=== PATIENT | male | born 1935 | race Caucasian/White ===

== ENCOUNTER → 2017-07-21 | Outpatient (CLI) | payer MEDICARE ==
[~2017-07-21] MED LIST: ACHD5005 PO; ENAL20TA PO; GLIP10TA13 PO; PRD20T PO
[2017-07-21 16:23] LABS: ALBUMIN 4.1 GM/DL (3.2-4.5); BILIRUBIN,TOTAL 0.8 MG/DL (0.1-1.0); CALCIUM 9.1 MG/DL (8.5-10.1); CREATININE SERUM 1.28 MG/DL (0.60-1.30); POTASSIUM 4.6 MMOL/L (3.6-5.0); TOTAL PROTEIN 7.4 GM/DL (6.4-8.2)
[2017-07-21 16:45] LABS: THYROID STIMULATING HORMONE 30.61 UIU/ML (0.35-4.94)
== END ==
LOC: LAB 15:44
PROVIDERS: ATTEND Internal Medicine Cardiovascular Disease
DX: E11.9 Type 2 diabetes mellitus without complications (principal); R94.31 Abnormal electrocardiogram [ECG] [EKG]; I10 Essential (primary) hypertension; R06.02 Shortness of breath
CPT/HCPCS: 36415; 80053; 80061; 84443

== ENCOUNTER 2017-12-16 11:33 | Inpatient (IN) | payer MEDICARE ==
[~2017-12-16] VITALS: Ht 170.2 cm; Wt 88.1 kg
[2017-12-16] VITALS (9 sets, daily range): BP systolic 92–119; BP diastolic 52–67
[2017-12-16] MEDS ORDERED: RT-ALBUTEROL/IPRATROPIUM 3 ML (DUONEB) VIAL ONE (12:05)
--- NOTE | 2017-12-16 12:05 | ED Cough/URI ---
General Stated Complaint: POSS PNEUMONIA Source: patient Exam Limitations: no limitations History of Present Illness Date Seen by Provider: Dec 16, 2017 Time Seen by Provider: 12:03 Initial Comments To ER by private vehicle from Dr Cruz office where he presented today with c/ o cough and general malaise of 1-3 weeks duration. Fevers noted. Timing/Duration: constant Severity/Quality: moderate Associated Symptoms: cough, fever/chills, shortness of breath, wheezing Allergies and Home Medications Allergies Coded Allergies: No Known Drug Allergies (Unverified , 08/09/12) Home Medications Enalapril Maleate 20 Mg Tablet, 20 MG PO DAILY, (Reported) Glipizide 10 Mg Tablet, 1 EACH PO DAILY, (Reported) Patient Home Medication List Home Medication List Reviewed: Yes Review of Systems Constitutional: see HPI, chills, fever, malaise, weakness EENTM: see HPI Respiratory: see HPI, cough, short of breath, wheezing Cardiovascular: no symptoms reported Genitourinary: no symptoms reported Musculoskeletal: no symptoms reported Skin: no symptoms reported Past Yhtmqii-Yabxff-Nxqpdm Hx Patient Social History Recent Foreign Travel: No Contact w/Someone Who Travel: No Seasonal Allergies Seasonal Allergies: No Past Medical History Orthopedic Hypertension Reproductive Disorders: No Diabetes, Non-Insulin dep Adverse Reaction/Blood Tranf: No Physical Exam Vital Signs Vital Signs - First Documented 12/16/17 12/16/17 11:43 12:13 Temp 99.4 Pulse 127 Resp 20 B/P (MAP) 129/80 (96) Pulse Ox 94 O2 Delivery Room Air Capillary Refill : General Appearance: WD/WN, no apparent distress Eyes: Bilateral Eye Normal Inspection, Bilateral Eye PERRL, Bilateral Eye EOMI HEENT: PERRL/EOMI, normal ENT inspection Neck: non-tender, full range of motion Respiratory: no respiratory distress, no accessory muscle use, other ( increased respiratory rate. Wheezing noted, crackles in bases. 94% room air, HR 120. ) Cardiovascular: tachycardia Gastrointestinal: normal bowel sounds, non tender, soft Neurologic/Psychiatric: alert, normal mood/affect, oriented x 3 Skin: normal color, warm/dry Focused Exam Lactate Level 12/16/17 12:00: Lactic Acid Level 2.75*H Lactic Acid Level Laboratory Tests Test 12/16/17 12:00 Lactic Acid Level 2.75 MMOL/L (0.50-2.00) *H Progress/Results/Core Measures Suspected Sepsis SIRS Temperature: Pulse: Respiratory Rate: Laboratory Tests 12/16/17 12:00: White Blood Count 12.1H Blood Pressure / Mean: 12/16/17 12:00: Lactic Acid Level 2.75*H Laboratory Tests 12/16/17 12:00: Creatinine 1.64H, Platelet Count 254, Total Bilirubin 0.6 Results/Orders Lab Results Laboratory Tests Test 12/16/17 12:00 Range/Units White Blood Count 12.1 H 4.3-11.0 10^3/uL Red Blood Count 4.19 L 4.35-5.85 10^6/uL Hemoglobin 13.1 L 13.3-17.7 G/DL Hematocrit 38 L 40-54 % Mean Corpuscular Volume 90 80-99 FL Mean Corpuscular Hemoglobin 31 25-34 PG Mean Corpuscular Hemoglobin Concent 35 32-36 G/DL Red Cell Distribution Width 13.6 10.0-14.5 % Platelet Count 254 130-400 10^3/uL Mean Platelet Volume 11.2 H 7.4-10.4 FL Neutrophils (%) (Auto) 81 H 42-75 % Lymphocytes (%) (Auto) 7 L 12-44 % Monocytes (%) (Auto) 12 0-12 % Eosinophils (%) (Auto) 0 0-10 % Basophils (%) (Auto) 0 0-10 % Neutrophils # (Auto) 9.7 H 1.8-7.8 X 10^3 Lymphocytes # (Auto) 0.9 L 1.0-4.0 X 10^3 Monocytes # (Auto) 1.4 H 0.0-1.0 X 10^3 Eosinophils # (Auto) 0.0 0.0-0.3 10^3/uL Basophils # (Auto) 0.0 0.0-0.1 10^3/uL Neutrophils % (Manual) 68 % Lymphocytes % (Manual) 12 % Monocytes % (Manual) 11 % Eosinophils % (Manual) 2 % Basophils % (Manual) 0 % Myelocytes % 1 % Band Neutrophils 6 % Blood Morphology Comment NORMAL Sodium Level 134 L 135-145 MMOL/L Potassium Level 4.5 3.6-5.0 MMOL/L Chloride Level 102 98-107 MMOL/L Carbon Dioxide Level 17 L 21-32 MMOL/L Anion Gap 15 H 5-14 MMOL/L Blood Urea Nitrogen 40 H 7-18 MG/DL Creatinine 1.64 H 0.60-1.30 MG/DL Estimat Glomerular Filtration Rate 40 BUN/Creatinine Ratio 24 Glucose Level 328 H 70-105 MG/DL Lactic Acid Level 2.75 *H 0.50-2.00 MMOL/L Calcium Level 9.5 8.5-10.1 MG/DL Total Bilirubin 0.6 0.1-1.0 MG/DL Aspartate Amino Transf (AST/SGOT) 31 5-34 U/L Alanine Aminotransferase (ALT/SGPT) 40 0-55 U/L Alkaline Phosphatase 84 40-136 U/L Total Protein 8.0 6.4-8.2 GM/DL Albumin 3.7 3.2-4.5 GM/DL My Orders Orders - RADHA LUGO APRN Saline Lock/Iv-Start (12/16/17 11:42) Cbc With Automated Diff (12/16/17 11:42) Comprehensive Metabolic Panel (12/16/17 11:42) Ua Culture If Indicated (12/16/17 11:42) Blood Culture (12/16/17 11:42) Lactic Acid Analyzer (12/16/17 11:42) Chest 1 View, Ap/Pa Only (12/16/17 12:02) Albuterol/Ipra Inhalation Soln (Duoneb I (12/16/17 12:15) Svn Sm Volume Nebulizer Rt-Rfs (12/16/17 12:07) Albuterol/Ipra Inhalation Soln (Duoneb I (12/16/17 12:05) Manual Differential (12/16/17 12:00) Ns Iv 1000 Ml (Sodium Chloride 0.9%) (12/16/17 12:30) Ceftriaxone Injection (Rocephin Injectio (12/16/17 12:45) Piperacillin Sodium/Tazobactam (Zosyn Vi (12/16/17 13:00) Medications Given in ED Current Medications Medications Dose Ordered Sig/Tripp Route Start Time Stop Time Status Last Admin Dose Admin Albuterol/ Ipratropium 3 ml ONCE ONCE INH 12/16/17 12:15 12/16/17 12:16 DC 12/16/17 12:17 3 ML Ceftriaxone Sodium 1000 mg/ Sodium Chloride 100 ml @ 200 mls/hr ONCE ONCE IV 12/16/17 12:45 12/16/17 13:14 DC 12/16/17 12:55 200 MLS/HR Piperacillin Sod/ Tazobactam Sod 4.5 gm/Sodium Chloride 100 ml @ 200 mls/hr ONCE ONCE IV 12/16/17 13:00 12/16/17 13:29 DC 12/16/17 14:01 200 MLS/HR Vital Signs/I&O 12/16/17 12/16/17 11:43 12:13 Temp 99.4 Pulse 127 Resp 20 B/P (MAP) 129/80 (96) Pulse Ox 94 O2 Delivery Room Air Room Air Capillary Refill : Departure Communication (Admissions) Time/Spoke to Admitting Phy: 14:[address] Clement, ICU, zosyn, pt alert and oriented and wants to be full code. SBP not less than 90, MAP not <65, Lactic acid not >4 so will not need 30ml/kg fluid bolus. Does meet severe sepsis criteria with the acute renal failure. Impression Primary Impression: Pneumonia Additional Impressions: Severe sepsis Acute renal insufficiency Disposition: ADMITTED INPATIENT Condition: Stable Admissions Decision to Admit Reason: Admit from ER (General) Decision to Admit/Date: Dec 16, 2017 Time/Decision to Admit Time: 12:09 Departure-Patient Inst. Referrals: MICHELLE FLYNN MD (PCP/Family) Primary Care Physician RADHA LUGO APRN Dec 16, 2017 12:05
[2017-12-16 12:10] LABS: BASOPHILS % (AUTO) 0 % (0-10); EOSINOPHILS % (AUTO) 0 % (0-10); HEMATOCRIT 38 % (40-54); HEMOGLOBIN 13.1 G/DL (13.3-17.7); LYMPHOCYTES # (AUTO) 0.9 X 10^3 (1.0-4.0); LYMPHOCYTES % (AUTO) 7 % (12-44); MEAN CORPUSCULAR HEMOGLOBIN 31 PG (25-34); MEAN CORPUSCULAR HGB CONC 35 G/DL (32-36); MEAN CORPUSCULAR VOLUME 90 FL (80-99); MEAN PLATELET VOLUME 11.2 FL (7.4-10.4); MONOCYTES # (AUTO) 1.4 X 10^3 (0.0-1.0); MONOCYTES % (AUTO) 12 % (0-12); NEUTROPHILS # (AUTO) 9.7 X 10^3 (1.8-7.8); NEUTROPHILS % (AUTO) 81 % (42-75); PLATELET COUNT 254 10^3/uL (130-400); RED BLOOD COUNT 4.19 10^6/uL (4.35-5.85); RED CELL DISTRIBUTION WIDTH 13.6 % (10.0-14.5); WHITE BLOOD COUNT 12.1 10^3/uL (4.3-11.0)
[2017-12-16] MEDS ORDERED: RT-ALBUTEROL/IPRATROPIUM 3 ML (DUONEB) VIAL INH ONE (12:15)
[2017-12-16 12:28] LABS: ALBUMIN 3.7 GM/DL (3.2-4.5); BILIRUBIN,TOTAL 0.6 MG/DL (0.1-1.0); CALCIUM 9.5 MG/DL (8.5-10.1); CREATININE SERUM 1.64 MG/DL (0.60-1.30); POTASSIUM 4.5 MMOL/L (3.6-5.0)
[2017-12-16] MEDS ORDERED: NS IV 1000 ML 1,000 ML IV SCH (12:30)
--- NOTE | 2017-12-16 12:40 | Diagnostic Imaging Report ---
INDICATION. Respiratory distress. Frontal chest obtained at 1221 hrs. P.m. Heart and mediastinal silhouette are normal in appearance. The right lung is clear. There is some minimal infiltrate versus atelectasis in the left base. There is no pneumothorax or pleural fluid. IMPRESSION: Minimal infiltrate versus atelectasis in left base. Otherwise negative chest. Followup is recommended as clinically warranted. Dictated by: Dictated on workstation # [id number]
[2017-12-16] MEDS ORDERED: cefTRIAXone INJECTION 1,000 MG in NS (IVPB) 100 ML IV ONE (12:45)
[2017-12-16 12:49] LABS: BAND NEUTROPHILS 6 %; BASOPHILS % (MANUAL) 0 %; EOSINOPHILS % (MANUAL) 2 %; LYMPHOCYTES % (MANUAL) 12 %; MONOCYTES % (MANUAL) 11 %; MYELOCYTES % 1 %; NEUTROPHILS % (MANUAL) 68 %; RBC MORPH NORMAL
[2017-12-16] MEDS ORDERED: PIPERACILLIN SODIUM/TAZOBACTAM 4.5 GM in NS (IVPB) 100 ML IV ONE (13:00)
--- NOTE | 2017-12-16 14:06 | History & Physical-Hospitalist ---
History of Present Illness HPI/Chief Complaint CC: Pneumonia HPI: This is an 82-year-old white male patient of Dr Torres with a past medical history of paroxysmal atrial fibrillation along with diabetes who presents to the ER with shortness of breath and cough. He reports that he saw Dr. Torres in his clinic earlier and considering fever and overall status that was worsening and wheezing he was sent to the ER for evaluation. He was found to have a pneumonia on chest x-ray and worsening renal insufficiency meeting criteria along with hypoxia for admission to the hospital. He had been coughing up yellow sputum and he had been sick for about a week with fever on and off. He had been taking Robitussin with codeine with varying results. He does not wear home oxygen at home and does not use nebulizer treatments. He denied any pain when I assessed him in the ER. Source: patient Exam Limitations: no limitations Date Seen 12/16/17 Time Seen by Provider: 13:30 Attending Physician Tracy Clement Floyd R MD Referring Physician Date of Admission Dec 16, 2017 at 13:00 Home Medications & Allergies Home Medications Reviewed patient Home Medication Reconciliation performed by pharmacy medication reconciliations radiation protection technician and/or nursing. Patients Allergies have been reviewed. Allergies Allergies Coded Allergies No Known Drug Allergies ([id number]/3/12) Past Yoophuo-Jnwajp-Xsucnz Hx Past Med/Social Hx: Reviewed Nursing Past Med/Soc Hx, Reviewed and Corrections made Patient Social History Marrital Status: single Employed/Student: retired Alcohol Use: Denies Use Recreational Drug Use: No Smoking Status: Never a Smoker 2nd Hand Smoke Exposure: No Recent Foreign Travel: No Contact w/other who traveled: No Recent Infectious Disease Expo: No Seasonal Allergies Seasonal Allergies: No Past Medical History Surgeries: Orthopedic Cardiac: Atrial Fibrillation, Hypertension Reproductive: No Endocrine: Diabetes, Non-Insulin dep Adverse Reaction to Blood [place]: No Family History Reviewed and Corrections made Diabetes Review of Systems Constitutional: see HPI, chills, dizziness, fever, malaise, weakness EENTM: no symptoms reported Respiratory: cough, dyspnea on exertion, short of breath, wheezing Cardiovascular: no symptoms reported Gastrointestinal: loss of appetite, nausea Genitourinary: decreased output Musculoskeletal: back pain Skin: no symptoms reported Psychiatric/Neurological: No Symptoms Reported All Other Systems Reviewed Negative Unless Noted: Yes Physical Exam Physical Exam Vital Signs Vital Signs - First Documented 12/16/17 12/16/17 12/16/17 11:43 12:13 23:44 Temp 99.4 Pulse 127 Resp 20 B/P (MAP) 129/80 (96) Pulse Ox 94 O2 Delivery Room Air O2 Flow Rate 2.00 Capillary Refill : Greater Than 3 Seconds General Appearance: No Apparent Distress, WD/WN, Chronically ill Eyes: Bilateral Eye Normal Inspection, Bilateral Eye PERRL HEENT: PERRL/EOMI, Normal ENT Inspection, Pharynx Normal Neck: Full Range of Motion, Normal Inspection, Non Tender, Supple, Carotid Bruit Respiratory: Chest Non Tender, No Accessory Muscle Use, No Respiratory Distress , Crackles, Decreased Breath Sounds, Wheezing Cardiovascular: Regular Rate, Rhythm, No Edema, No Gallop, No JVD, No Murmur, Normal Peripheral Pulses Gastrointestinal: Normal Bowel Sounds, No Organomegaly, No Pulsatile Mass, Non Tender, Soft Back: Normal Inspection, No CVA Tenderness, No Vertebral Tenderness Extremity: Normal Capillary Refill, Normal Inspection, Normal Range of Motion, Non Tender, No Calf Tenderness, No Pedal Edema Neurologic/Psychiatric: Alert, Oriented x3, No Motor/Sensory Deficits, Normal Mood/Affect Skin: Normal Color, Warm/Dry Lymphatic: No Adenopathy Results Results/Procedures Labs Laboratory Tests 12/16/17 12:00 12/17/17 03:40 Patient resulted labs reviewed. Assessment/Plan Admission Diagnosis Pneumonia Wheezing Diabetes mellitus Acute renal failure Hypertension Atrial fibrillation paroxysmal type cardiology consultation appreciated Chronic debility Plan: Reconciled all home meds IV antibiotics Nebulizer treatments Oxygen supplementation Cardiology consultation is appreciated Admission Status: Inpatient Order (span 2 midnights) Reason for Inpatient Admission: Severe sepsis due to pneumonia and ARF Diagnosis/Problems Diagnosis/Problems (1) Severe sepsis Status: Acute (2) Pneumonia Status: Acute Qualifiers: Pneumonia type: due to unspecified organism Laterality: bilateral Lung location: lower lobe of lung Qualified Codes: J18.1 - Lobar pneumonia, unspecified organism (3) Wheezing Status: Acute (4) Diabetes mellitus Status: Chronic Qualifiers: Diabetes mellitus type: type 2 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
[2017-12-16] MEDS ORDERED: LEVO100T7 PO (14:50)
[2017-12-16] MEDS ORDERED: LOSA50TA36 PO (14:50)
[2017-12-16] MEDS ORDERED: PRAV20TA3 PO (14:50)
[2017-12-16] MEDS ORDERED: METO-387 PO (14:50)
[2017-12-16] MEDS ORDERED: GLIP10TA13 PO (14:50)
[2017-12-16] MEDS ORDERED: GUAI120S PO (14:55)
[2017-12-16] MEDS ORDERED: DEXT237L PO (14:55)
[2017-12-16] MEDS ORDERED: ASPI-983 PO (14:55)
[2017-12-16] MEDS ORDERED: ASCO10006 PO (14:55)
[2017-12-16] MEDS ORDERED: FA/M1TAB29 PO (14:55)
[2017-12-16] MEDS ORDERED: ASCO100099 PO (14:56)
[2017-12-16] MEDS ORDERED: NS IV 1000 ML 1,000 ML ONE (15:23)
[2017-12-16] MEDS ORDERED: RT-ALBUTEROL/IPRATROPIUM 3 ML (DUONEB) VIAL INH PRN (15:30)
[2017-12-16] MEDS ORDERED: CATHETER FLUSH 10 ML SYR IV PRN (15:30)
[2017-12-16] MEDS ORDERED: PIPERACILLIN SODIUM/TAZOBACTAM 4.5 GM in NS (IVPB) 100 ML IV NR (15:30)
[2017-12-16] MEDS ORDERED: ENOXAPARIN 40 MG/0.4 ML (LOVENOX) SYR SC SCH (15:30)
[2017-12-16] MEDS: NS IV 1000 ML 1,000 ML IV SCH ×2 (15:36→23:43)
[2017-12-16] MEDS: PANTOPRAZOLE 40 MG/10 ML (PROTONIX) VIAL IV SCH (15:47)
[2017-12-16] MEDS ORDERED: inSUlin (REGULAR) HUMAN 1 UNIT/0.01 ML (CHARGE PER UNIT) SC SCH (16:00)
[2017-12-16] MEDS: inSUlin ASPART (NovoLOG) 1 UNIT/0.01 ML (CHARGE PER UNIT) SC SCH ×2 (16:06→20:54)
[2017-12-16] MEDS ORDERED: ONDANSETRON 4 MG/2 ML (SDV) Z0FRAN IVP PRN (17:15)
[2017-12-16] MEDS ORDERED: fentaNYL INJECTION 100 MCG/2 ML AMP IVP PRN (17:15)
[2017-12-16] MEDS ORDERED: ACETAMINOPHEN 500 MG TAB (TYLENOL) PO PRN (17:15)
[2017-12-16] MEDS ORDERED: LACTULOSE SYRUP 10GM/15ML (ENULOSE) 30ML UDC PO PRN (17:15)
[2017-12-16] MEDS ORDERED: ALPRAZolam 0.25 MG (XANAX) TAB PO PRN (17:15)
[2017-12-16] MEDS: APIXABAN 5 MG (ELIQUIS) TABLET PO SCH (18:28)
[2017-12-16] MEDS ORDERED: guaiFENesin/DM (ROBITUSSIN DM) 10 ML UDC PO PRN (18:30)
[2017-12-16] MEDS: glipiZIDE 5 MG (GLUCOTROL) TAB PO SCH (18:31)
[2017-12-16] MEDS: PIPERACILLIN SODIUM/TAZOBACTAM 4.5 GM in NS (IVPB) 100 ML IV SCH (19:42)
[2017-12-16] MEDS: RT-ALBUTEROL/IPRATROPIUM 3 ML (DUONEB) VIAL INH SCH (20:21)
[2017-12-16] MEDS: ASPIRIN E.C. 81 MG (ECOTRIN) TAB PO SCH (20:54)
[2017-12-16] MEDS: LEVOTHYROXINE 100 MCG (LEVOTHROID) TAB PO SCH (20:54)
[2017-12-16] MEDS ORDERED: NON-FORMULARY MEDICATION 1 EA EA (Glipizide 10 MG) PO SCH (21:00)
[2017-12-16] MEDS ORDERED: LEVOTHYROXINE SODIUM 100 MCG PO SCH (21:00)
[2017-12-16] MEDS ORDERED: METOPROLOL SUCCINATE 25 MG PO SCH (21:00)
[2017-12-16] MEDS ORDERED: PIPERACILLIN SODIUM/TAZOBACTAM 4.5 GM in NS (IVPB) 100 ML IV SCH (22:00)
[2017-12-17] VITALS (15 sets, daily range): BP systolic 85–151; BP diastolic 45–77
[2017-12-17] MEDS: RT-ALBUTEROL/IPRATROPIUM 3 ML (DUONEB) VIAL INH SCH ×4 (01:41→20:43)
[2017-12-17] MEDS: PIPERACILLIN SODIUM/TAZOBACTAM 4.5 GM in NS (IVPB) 100 ML IV SCH ×3 (04:18→20:27)
[2017-12-17 04:40] LABS: BASOPHILS % (AUTO) 0 % (0-10); EOSINOPHILS # (AUTO) 0.1 10^3/uL (0.0-0.3); EOSINOPHILS % (AUTO) 1 % (0-10); HEMATOCRIT 31 % (40-54); HEMOGLOBIN 10.7 G/DL (13.3-17.7); LYMPHOCYTES # (AUTO) 1.3 X 10^3 (1.0-4.0); LYMPHOCYTES % (AUTO) 16 % (12-44); MEAN CORPUSCULAR HEMOGLOBIN 31 PG (25-34); MEAN CORPUSCULAR HGB CONC 34 G/DL (32-36); MEAN CORPUSCULAR VOLUME 91 FL (80-99); MEAN PLATELET VOLUME 11.1 FL (7.4-10.4); MONOCYTES % (AUTO) 12 % (0-12); NEUTROPHILS # (AUTO) 5.6 X 10^3 (1.8-7.8); NEUTROPHILS % (AUTO) 71 % (42-75); PLATELET COUNT 240 10^3/uL (130-400); RED BLOOD COUNT 3.44 10^6/uL (4.35-5.85); RED CELL DISTRIBUTION WIDTH 13.7 % (10.0-14.5); WHITE BLOOD COUNT 7.9 10^3/uL (4.3-11.0)
[2017-12-17 05:03] LABS: BILIRUBIN,TOTAL 0.5 MG/DL (0.1-1.0); CALCIUM 8.2 MG/DL (8.5-10.1); CREATININE SERUM 1.21 MG/DL (0.60-1.30); MAGNESIUM 1.9 MG/DL (1.8-2.4); POTASSIUM 3.6 MMOL/L (3.6-5.0); TOTAL PROTEIN 6.3 GM/DL (6.4-8.2)
[2017-12-17] MEDS: inSUlin ASPART (NovoLOG) 1 UNIT/0.01 ML (CHARGE PER UNIT) SC SCH ×4 (05:07→20:51)
[2017-12-17] MEDS ORDERED: KCL 20 MEQ TAB (K-DUR) PO SCH (06:00)
[2017-12-17] MEDS ORDERED: MAGNESIUM 1 GM/100 ML IVPB 100 ML IV SCH (06:00)
[2017-12-17] MEDS ORDERED: POTASSIUM CL 10MEQ/50ML IVPB 50 ML IV SCH (06:00)
[2017-12-17] MEDS: PANTOPRAZOLE 40 MG/10 ML (PROTONIX) VIAL IV SCH (08:00)
[2017-12-17] MEDS: APIXABAN 5 MG (ELIQUIS) TABLET PO SCH ×2 (08:00→20:27)
[2017-12-17] MEDS: NS IV 1000 ML 1,000 ML IV SCH (08:00)
--- NOTE | 2017-12-17 09:04 | Diagnostic Imaging Report ---
INDICATION: Pneumonia COMPARISON: 12/16/2017 FINDINGS: There is increased opacity in the left lung base medially which could be partial atelectasis or pneumonia. The right lung is clear. There is no effusion or pneumothorax. IMPRESSION: Increased left basilar parenchymal opacity pneumonia versus atelectasis. Dictated by: Dictated on workstation # [id number]
--- NOTE | 2017-12-17 09:15 | Consultation-Cardiology ---
HPI-Cardiology Cardiology Consultation: Date of Consultation 12/17/17 Time Seen by Provider: 09:10 Date of Admission 12/16/17 Attending Physician Tracy Clement DO Admitting Physician James Torres MD Consulting Physician SAKSHI SANTOS MD, MA, FACP, FACC, FSCAI, CCDS HPI: Chief Complaint: Reason for consultation: atrial fibrillation 82 yo man admitted yesterday to Dr Clement with sepsis. Found to have intermittent A fib for which we have been asked in consult. Denies cp. Has chronic shortness of breath. Denies palp or syncope. Has had gen malaise and weakness and cough productive of yellowish sputum for which he had come to the ER yesterday. Had had an increase in chronic shortness of breath. Denies leg swelling Review of Systems-Cardiology Review of Systems Constitutional: malaise, tiredness; No weight loss, No weight gain Eyes: No vision change Ears/Nose/Throat: No ear discharge, No nasal drainage, No recent hearing loss Respiratory: As described under HPI Cardiovascular: As described under HPI Gastrointestinal: No constipation, No diarrhea, No nausea Genitourinary: No dysuria, No hematuria; incontinence (chronic h/o intermittent incontinence) Musculoskeletal: back pain (chronic) Skin: No rash, No ulcerations Psychiatric/Neurological: No seizure, No focal weakness, No syncope Hematologic: No bleeding abnormalities DHK-Nqawwl-Uzhgac Hx Patient Social History Alcohol Use: Denies Use Recreational Drug Use: No Smoking Status: Never a Smoker 2nd Hand Smoke Exposure: No Recent Foreign Travel: No Recent Infectious Disease Expo: No Hospitalization with Isolation: Denies Physical Abuse Screen: No Sexual Abuse: No Past Medical History PMH As described under Assessment. Family Medical History Family Medical History: Does not report fam h/o early CAD Allergies and Home Medications Allergies Coded Allergies: No Known Drug Allergies (Unverified , 08/09/12) Home Medications Ascorbic Acid 1,000 Mg Tablet, 1,000 MG PO HS, (Reported) Aspirin 81 Mg Tablet.dr, 81 MG PO HS, (Reported) Dextromethorphan Hb/Doxylamine 237 Ml Liquid, 10 ML PO Q6H PRN for COUGH, ( Reported) Glipizide 10 Mg Tablet, 10 MG PO HS, (Reported) Guaifenesin/Dextromethorphan 120 Ml Syrup, 10 ML PO Q4H PRN for COUGH, (Reported ) Levothyroxine Sodium 100 Mcg Tablet, 100 MCG PO HS, (Reported) Losartan Potassium 50 Mg Tablet, 50 MG PO HS, (Reported) Metoprolol Succinate 25 Mg Tab.er.24h, 25 MG PO HS, (Reported) Multivit-Min/FA/Lycopene/Lut 1 Each Tablet, 1 TAB PO HS, (Reported) Pravastatin Sodium 20 Mg Tablet, 20 MG PO HS, (Reported) Patient Home Medication List Home Medication List Reviewed: Yes Physical Exam-Cardiology Physical Exam Vital Signs/I&O 12/16/17 12/16/17 12/16/17 12/16/17 22:00 23:00 23:40 23:44 Temp 99.2 Pulse 91 75 Resp 22 18 B/P (MAP) 104/58 (73) 95/55 (68) Pulse Ox 93 90 85 93 O2 Delivery Room Air Room Air Room Air Nasal Cannula O2 Flow Rate 2.00 12/16/17 12/17/17 12/17/17 12/17/17 23:45 00:00 01:00 01:00 Pulse 70 63 61 Resp 26 25 B/P (MAP) 100/49 (66) 85/45 (58) Pulse Ox 97 97 95 O2 Delivery Nasal Cannula Nasal Cannula Nasal Cannula O2 Flow Rate 2.00 2.00 2.00 12/17/17 12/17/17 12/17/17 12/17/17 01:41 02:00 03:00 03:55 Temp 98.4 Pulse 85 90 Resp 18 27 B/P (MAP) 101/54 (70) 107/62 (77) Pulse Ox 96 96 96 O2 Delivery Nasal Cannula Nasal Cannula Nasal Cannula O2 Flow Rate 2.00 2.00 2.00 12/17/17 12/17/17 12/17/17 12/17/17 03:55 04:00 05:00 06:00 Pulse 84 72 70 Resp 21 17 26 B/P (MAP) 101/63 (76) 94/51 (65) 97/50 (66) Pulse Ox 98 97 94 97 O2 Delivery Nasal Cannula Nasal Cannula Nasal Cannula Nasal Cannula O2 Flow Rate 2.00 2.00 2.00 2.00 12/17/17 12/17/17 12/17/17 07:00 08:00 08:00 Temp 98.4 Pulse 59 Resp 22 B/P (MAP) 99/50 (66) Pulse Ox 98 95 O2 Delivery Nasal Cannula Nasal Cannula O2 Flow Rate 2.00 2.00 12/17/17 00:00 Intake Total 1325 ml Balance 1325 ml Capillary Refill : Greater Than 3 Seconds Constitutional: No apparent distress; well-developed, well-nourished, other ( poor memory, slow to respond) HEENT: PERRL, EOMI, hard of hearing Neck: carotid pulses are 2 + bilaterally, with good upstrokes Respiratory: chest expansion is symmetric, chest is bilaterally symmetric, other (rhonchi over large airways; diminshed air entry at the basees) Cardiovascular: regular rate-rhythm, S1 and S2, systolic murmur (2/6 LILY at card base) Gastrointestinal: No tender; soft; No guarding, No rebound; audible bowel sounds Extremities: No clubbing, No cyanosis, No significant edema Neurologic/Psychiatric: other (poor memory; moves all limbs equally) Skin: No rash on exposed areas, No ulcerations on exposed areas Data Review Labs Laboratory Tests 12/16/17 12:00: White Blood Count 12.1H, Red Blood Count 4.19L, Hemoglobin 13.1L, Hematocrit 38L , Mean Corpuscular Volume 90, Mean Corpuscular Hemoglobin 31, Mean Corpuscular Hemoglobin Concent 35, Red Cell Distribution Width 13.6, Platelet Count 254, Mean Platelet Volume 11.2H, Neutrophils (%) (Auto) 81H, Lymphocytes (%) (Auto) 7L, Monocytes (%) (Auto) 12, Eosinophils (%) (Auto) 0, Basophils (%) (Auto) 0, Neutrophils # (Auto) 9.7H, Lymphocytes # (Auto) 0.9L, Monocytes # (Auto) 1.4H, Eosinophils # (Auto) 0.0, Basophils # (Auto) 0.0, Neutrophils % (Manual) 68, Lymphocytes % (Manual) 12, Monocytes % (Manual) 11, Eosinophils % (Manual) 2, Basophils % (Manual) 0, Myelocytes % 1, Band Neutrophils 6, Blood Morphology Comment NORMAL, Sodium Level 134L, Potassium Level 4.5, Chloride Level 102, Carbon Dioxide Level 17L, Anion Gap 15H, Blood Urea Nitrogen 40H, Creatinine 1.64H, Estimat Glomerular Filtration Rate 40, BUN/Creatinine Ratio 24, Glucose Level 328H, Lactic Acid Level 2.75*H, Calcium Level 9.5, Total Bilirubin 0.6, Aspartate Amino Transf (AST/SGOT) 31, Alanine Aminotransferase (ALT/SGPT) 40, Alkaline Phosphatase 84, Total Protein 8.0, Albumin 3.7 12/16/17 14:35: Lactic Acid Level 2.31*H 12/16/17 15:53: Glucometer 269H 12/16/17 20:54: Glucometer 147H 12/17/17 03:40: White Blood Count 7.9, Red Blood Count 3.44L, Hemoglobin 10.7L, Hematocrit 31L, Mean Corpuscular Volume 91, Mean Corpuscular Hemoglobin 31, Mean Corpuscular Hemoglobin Concent 34, Red Cell Distribution Width 13.7, Platelet Count 240, Mean Platelet Volume 11.1H, Neutrophils (%) (Auto) 71, Lymphocytes (%) (Auto) 16 , Monocytes (%) (Auto) 12, Eosinophils (%) (Auto) 1, Basophils (%) (Auto) 0, Neutrophils # (Auto) 5.6, Lymphocytes # (Auto) 1.3, Monocytes # (Auto) 1.0, Eosinophils # (Auto) 0.1, Basophils # (Auto) 0.0, Sodium Level 139, Potassium Level 3.6, Chloride Level 112#H, Carbon Dioxide Level 18L, Anion Gap 9, Blood Urea Nitrogen 31H, Creatinine 1.21, Estimat Glomerular Filtration Rate 57, BUN/ Creatinine Ratio 26, Glucose Level 103, Calcium Level 8.2L, Phosphorus Level 3.0 , Magnesium Level 1.9, Total Bilirubin 0.5, Aspartate Amino Transf (AST/SGOT) 28 , Alanine Aminotransferase (ALT/SGPT) 32, Alkaline Phosphatase 61, Total Protein 6.3L, Albumin 3.0L, Thyroid Stimulating Hormone (TSH) 1.30 Microbiology 12/16/17 Gram Stain, Resulted Pending 12/16/17 Sputum Culture - Preliminary, Resulted Probable Strep Pneumoniae Normal traci Laboratory Tests 12/16/17 12:00 12/17/17 03:40 A/P-Cardiology Assessment/Admission Diagnosis Septicemia, probably due to pneumonia, managed by Dr Clement Acute renal failure at presentation, improved with hydration Sinus node dysfunction: Sinus with first deg AV block alternating with atrial fib with a controlled vent response AV benita disease, as indicated by first deg AV block during sinus and spontaneously controlled vent response during atrial fib CAD. MPI of 03-25-16 is indicative of an inferolateral myocardial infarction with minimal hesham-infarct ischemia. Inferolateral akinesis. LVEF 62%. Due to progressive dyspnea, card cath has been discussed in the past, but he has not agreed Echocardiogram of 02-28-16 shows normal global LV systolic function with an ejection fraction of approx 60%. Mild concentric LVH. Mild aortic valve slcerosis and mitral annular calcification without evidence of valvular stenosis. 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 Given AV benita disease, monitor cardiac rate and rhythm closely. If bradycardic, then d/c beta-joyce altogether * Echo to eval EF and valve function * Monitor labs * Keep on tele for now Clinical Quality Measures DVT/VTE Risk/Contraindication: Risk Factor Score Per Nursin RFS Level Per Nursing on Admit: 4+=Very High SAKSHI SANTOS MD FACP FAC CCDS Dec 17, 2017 09:15
--- OUTSIDE RECORDS SUMMARY | 2017-12-17 10:38 | XMS REPORT | Continuity of Care Document ---
Author Author [facility] Organization [facility] Address Unknown Phone Unavailable Allergies Active Description Code Type Severity Reaction Onset Reported/Identified Relationship to Patient Clinical Status Yes No Known Drug Allergies [id number] Drug Allergy Unknown N/A 08/09/2012 Medications There is no data. Problems Date Dx Coded Attending Type Code Diagnosis Diagnosed By 08/09/2012 Ot 724.2 LUMBAGO 09/08/2014 RAHEEL WALSH, RAMSES Espino Ot 729.5 PAIN IN LIMB 02/26/2016 TOM WALSH FACC, SAKSHI FACP CCDS Ot E11.9 TYPE 2 DIABETES MELLITUS 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 02/26/2016 TOM WALSH FACC, SAKSHI FACP CCDS Ot I10 ESSENTIAL (PRIMARY) HYPERTENSION 02/26/2016 SAKSHI SANTOS MD, FACC FACP CCDS Ot R06.02 SHORTNESS OF BREATH 02/26/2016 TOM WALSH FACC ALI FACP CCDS Ot R07.89 OTHER CHEST PAIN 02/26/2016 SAKSHI SANTOS MD, FACC FACP CCDS Ot R94.31 ABNORMAL ELECTROCARDIOGRAM [ECG] [EKG] 02/29/2016 SAKSHI SANTOS MD, FACC FACP CCDS Ot R07.89 OTHER CHEST PAIN 02/29/2016 SAKSHI SANTOS MD, FACC FACP CCDS Ot E11.9 TYPE 2 DIABETES MELLITUS 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 02/29/2016 TOM WALSH FACC, ALI FACP CCDS Ot I10 ESSENTIAL (PRIMARY) HYPERTENSION 02/29/2016 TOM WALSH FACC, ALI FACP CCDS Ot R06.02 SHORTNESS OF BREATH 02/29/2016 TOM WALSH FACC ALI FACP CCDS Ot R07.89 OTHER CHEST PAIN 02/29/2016 TOM WALSH FACC, ALI FACP CCDS Ot R94.31 ABNORMAL ELECTROCARDIOGRAM [ECG] [EKG] 03/25/2016 SAKSHI SANTOS MD, FACC FACP CCDS Ot E11.9 TYPE 2 DIABETES MELLITUS 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 03/25/2016 TOM MD FACC, ALI FACP CCDS Ot I10 ESSENTIAL (PRIMARY) HYPERTENSION 03/25/2016 TOM WALSH [facility], ALI FACP CCDS Ot R06.02 SHORTNESS OF BREATH 03/25/2016 TOM WALSH FACC, ALI FACP CCDS Ot R07.89 OTHER CHEST PAIN 03/25/2016 [facility] F[facility] CCDS Ot R94.31 ABNORMAL ELECTROCARDIOGRAM [ECG] [EKG] 03/26/2016 [facility] F[facility] CCDS Ot E11.9 TYPE 2 DIABETES MELLITUS 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 03/26/2016 TOM WALSH [facility], ALI FACP CCDS Ot I10 ESSENTIAL (PRIMARY) HYPERTENSION 03/26/2016 TOM WALSH [facility], ALI FACP CCDS Ot R06.02 SHORTNESS OF BREATH 03/26/2016 [facility] SAKSHI FACP CCDS Ot R07.89 OTHER CHEST PAIN 03/26/2016 TOM WALSH [facility], ALI FACP CCDS Ot R94.31 ABNORMAL ELECTROCARDIOGRAM [ECG] [EKG] 03/27/2016 TOM WALSH FACC, SAKSHI FACP CCDS Ot E11.9 TYPE 2 DIABETES MELLITUS 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 03/27/2016 [facility] F[facility] CCDS Ot I10 ESSENTIAL (PRIMARY) HYPERTENSION 03/27/2016 TOM WALSH FACC, SAKSHI FACP CCDS Ot R06.02 SHORTNESS OF BREATH 03/27/2016 TOM WALSH FACC, ALI FACP CCDS Ot R07.89 OTHER CHEST PAIN 03/27/2016 TOM PALM, ALI FACP CCDS Ot R94.31 ABNORMAL ELECTROCARDIOGRAM [ECG] [EKG] 04/14/2016 TRACEY BOWEN L DYE FEEDER Ot I10 ESSENTIAL (PRIMARY) HYPERTENSION 04/15/2016 VICMA TRACEY L DYE FEEDER Ot I10 ESSENTIAL (PRIMARY) HYPERTENSION 04/15/2016 VICMA TRACEY L DYE FEEDER Ot I25.10 ATHSCL HEART DISEASE OF [place] CORONARY 04/15/2016 TRACEY BOWEN L DYE FEEDER Ot R06.02 SHORTNESS OF BREATH 04/15/2016 ALVARADO BOWENHER L DYE FEEDER Ot R94.31 ABNORMAL ELECTROCARDIOGRAM [ECG] [EKG] 04/18/2016 TRACEY BOWEN L DYE FEEDER Ot I10 ESSENTIAL (PRIMARY) HYPERTENSION 04/18/2016 JESSI TRACEY L DYE FEEDER Ot I25.10 ATHSCL HEART DISEASE OF [place] CORONARY 04/18/2016 ALVARADO BOWENHER L DYE FEEDER Ot R06.02 SHORTNESS OF BREATH 04/18/2016 ALVARADO BOWENHER L DYE FEEDER Ot R94.31 ABNORMAL ELECTROCARDIOGRAM [ECG] [EKG] 04/18/2016 TOM WALSH FACC, ALI FACP CCDS Ot E11.9 TYPE 2 DIABETES MELLITUS 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 04/18/2016 TOM WALSH FACC, ALI FACP CCDS Ot I10 ESSENTIAL (PRIMARY) HYPERTENSION 04/18/2016 TOM WALSH FACC, ALI FACP CCDS Ot R06.02 SHORTNESS OF BREATH 04/18/2016 TOM WALSH FACC, ALI FACP CCDS Ot R07.89 OTHER CHEST PAIN 04/18/2016 TOM WALSH FACC, ALI FACP CCDS Ot R94.31 ABNORMAL ELECTROCARDIOGRAM [ECG] [EKG] 05/06/2016 VICALVARADO BUSTAMANTEHER L DYE FEEDER Ot I10 ESSENTIAL (PRIMARY) HYPERTENSION 05/06/2016 TRACEY BOWEN L DYE FEEDER Ot I25.10 ATHSCL HEART DISEASE OF [place] CORONARY 05/06/2016 ALVARADO BOWENHER L DYE FEEDER Ot R06.02 SHORTNESS OF BREATH 05/06/2016 ALVARADO BOWENHER L DYE FEEDER Ot R94.31 ABNORMAL ELECTROCARDIOGRAM [ECG] [EKG] 08/11/2017 TOM WALSH FACC, SAKSHI FACP CCDS Ot E11.9 TYPE 2 DIABETES MELLITUS 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 08/11/2017 TOM WALSH FACC, ALI FACP CCDS Ot I10 ESSENTIAL (PRIMARY) HYPERTENSION 08/11/2017 TOM WALSH FACC, ALI FACP CCDS Ot R06.02 SHORTNESS OF BREATH 08/11/2017 TOM WALSH FACC, ALI FACP CCDS Ot R94.31 ABNORMAL ELECTROCARDIOGRAM [ECG] [EKG] 12/16/2017 TOM WALSH FACC, ALI FACP CCDS Ot E11.9 TYPE 2 DIABETES MELLITUS 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 12/16/2017 TOM WALSH FACC, ALI FACP CCDS Ot I10 ESSENTIAL (PRIMARY) HYPERTENSION 12/16/2017 TOM WALSH FACC, ALI FACP CCDS Ot R06.02 SHORTNESS OF BREATH 12/16/2017 TOM WALSH FACC, ALI FACP CCDS Ot R07.89 OTHER CHEST PAIN 12/16/2017 TOM MD FACC, ALI FACP CCDS Ot R94.31 ABNORMAL ELECTROCARDIOGRAM [ECG] [EKG] 12/16/2017 TOM PALMC, ALI FACP CCDS Ot E11.9 TYPE 2 DIABETES MELLITUS 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 12/16/2017 TOM WALSH FACC, ALI FACP CCDS Ot I10 ESSENTIAL (PRIMARY) HYPERTENSION 12/16/2017 TOM WALSH FACC, ALI FACP CCDS Ot R06.02 SHORTNESS OF BREATH 12/16/2017 TOM WALSH FACC, ALI FACP CCDS Ot R07.89 OTHER CHEST PAIN 12/16/2017 TOM PALMC, ALI FACP CCDS Ot R94.31 ABNORMAL ELECTROCARDIOGRAM [ECG] [EKG] 12/16/2017 TOM PALMC, ALI FACP CCDS Ot E11.9 TYPE 2 DIABETES MELLITUS 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 12/16/2017 TOM PALMC, ALI FACP CCDS Ot I10 ESSENTIAL (PRIMARY) HYPERTENSION 12/16/2017 TOM WALSH FACC, ALI FACP CCDS Ot R06.02 SHORTNESS OF BREATH 12/16/2017 TOM [facility], ALI FACP CCDS Ot R07.89 OTHER CHEST PAIN 12/16/2017 [facility], [facility]I FACP CCDS Ot R94.31 ABNORMAL ELECTROCARDIOGRAM [ECG] [EKG] 12/16/2017 TRACEY BOWEN DYE FEEDER Ot I10 ESSENTIAL (PRIMARY) HYPERTENSION 12/16/2017 TRACEY BOWEN L DYE FEEDER Ot I25.10 ATHSCL HEART DISEASE OF [place] CORONARY 12/16/2017 TRACEY BOWEN DYE FEEDER Ot R06.02 SHORTNESS OF BREATH 12/16/2017 TRACEY BOWEN DYE FEEDER Ot R94.31 ABNORMAL ELECTROCARDIOGRAM [ECG] [EKG] 12/16/2017 TOM PALM, ALI FACP CCDS Ot E11.9 TYPE 2 DIABETES MELLITUS 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 12/16/2017 TOM WALSH FACC, ALI FACP CCDS Ot I10 ESSENTIAL (PRIMARY) HYPERTENSION 12/16/2017 TOM WALSH FACC, ALI FACP CCDS Ot R06.02 SHORTNESS OF BREATH 12/16/2017 TOM PALMC, ALI FACP CCDS Ot R94.31 ABNORMAL ELECTROCARDIOGRAM [ECG] [EKG] 12/16/2017 TOM MD FACC, ALI FACP CCDS Ot E11.9 TYPE 2 DIABETES MELLITUS 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 12/16/2017 TOM WALSH FACC, ALI FACP CCDS Ot I10 ESSENTIAL (PRIMARY) HYPERTENSION 12/16/2017 TOM WALSH FACC, ALI FACP CCDS Ot R06.02 SHORTNESS OF BREATH 12/16/2017 TOM WALSH FACC, ALI FACP CCDS Ot R07.89 OTHER CHEST PAIN 12/16/2017 TOM WALSH FACC, ALI FACP CCDS Ot R94.31 ABNORMAL ELECTROCARDIOGRAM [ECG] [EKG] 12/16/2017 [facility], ALI FACP CCDS Ot E11.9 TYPE 2 DIABETES MELLITUS 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 12/16/2017 TOM WALSH FACC, ALI FACP CCDS Ot I10 ESSENTIAL (PRIMARY) HYPERTENSION 12/16/2017 TOM PALMC, ALI FACP CCDS Ot R06.02 SHORTNESS OF BREATH 12/16/2017 [facility], ALI FACP CCDS Ot R07.89 OTHER CHEST PAIN 12/16/2017 TOM PALM, ALI FACP CCDS Ot R94.31 ABNORMAL ELECTROCARDIOGRAM [ECG] [EKG] 12/16/2017 TOM PALM, ALI FACP CCDS Ot E11.9 TYPE 2 DIABETES MELLITUS 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 12/16/2017 TOM WALSH FACC, ALI FACP CCDS Ot I10 ESSENTIAL (PRIMARY) HYPERTENSION 12/16/2017 TOM WALHS FACC, ALI FACP CCDS Ot R06.02 SHORTNESS OF BREATH 12/16/2017 TOM PALM, ALI FACP CCDS Ot R07.89 OTHER CHEST PAIN 12/16/2017 TOM WALSH [facility], ALI FACP CCDS Ot R94.31 ABNORMAL ELECTROCARDIOGRAM [ECG] [EKG] 12/16/2017 TRACEY BOWEN L DYE FEEDER Ot I10 ESSENTIAL (PRIMARY) HYPERTENSION 12/16/2017 JESSI TRACEY L DYE FEEDER Ot I25.10 ATHSCL HEART DISEASE OF [place] CORONARY 12/16/2017 JESSI TRACEY L DYE FEEDER Ot R06.02 SHORTNESS OF BREATH 12/16/2017 TRACEY BOWEN L DYE FEEDER Ot R94.31 ABNORMAL ELECTROCARDIOGRAM [ECG] [EKG] 12/16/2017 TOM WLASH [facility], ALI FACP CCDS Ot E11.9 TYPE 2 DIABETES MELLITUS 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 12/16/2017 TOM PALMC, ALI FACP CCDS Ot I10 ESSENTIAL (PRIMARY) HYPERTENSION 12/16/2017 [facility]SH [facility], ALI FACP CCDS Ot R06.02 SHORTNESS OF BREATH 12/16/2017 TOM WALSH FACC, ALI FACP CCDS Ot R94.31 ABNORMAL ELECTROCARDIOGRAM [ECG] [EKG] 12/16/2017 [facility], ALI FACP CCDS Ot E11.9 TYPE 2 DIABETES MELLITUS 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 12/16/2017 T[facility], ALI FACP CCDS Ot I10 ESSENTIAL (PRIMARY) HYPERTENSION 12/16/2017 [facility], ALI FACP CCDS Ot R06.02 SHORTNESS OF BREATH 12/16/2017 [facility], ALI FACP CCDS Ot R07.89 OTHER CHEST PAIN 12/16/2017 T[facility]SH [facility], ALI FACP CCDS Ot R94.31 ABNORMAL ELECTROCARDIOGRAM [ECG] [EKG] 12/16/2017 TOM WALSH [facility], ALI FACP CCDS Ot E11.9 TYPE 2 DIABETES MELLITUS 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 12/16/2017 TOM WALSH [facility], ALI FACP CCDS Ot I10 ESSENTIAL (PRIMARY) HYPERTENSION 12/16/2017 TOM WALSH [facility], ALI FACP CCDS Ot R06.02 SHORTNESS OF BREATH 12/16/2017 TOM WALSH [facility], ALI FACP CCDS Ot R07.89 OTHER CHEST PAIN 12/16/2017 TOM WALSH [facility], ALI FACP CCDS Ot R94.31 ABNORMAL ELECTROCARDIOGRAM [ECG] [EKG] 12/16/2017 TOM WALSH [facility], ALI FACP CCDS Ot E11.9 TYPE 2 DIABETES MELLITUS 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 12/16/2017 TOM WALSH [facility], ALI FACP CCDS Ot I10 ESSENTIAL (PRIMARY) HYPERTENSION 12/16/2017 TOM WALSH [facility], ALI FACP CCDS Ot R06.02 SHORTNESS OF BREATH 12/16/2017 TOM WALSH [facility], ALI FACP CCDS Ot R07.89 OTHER CHEST PAIN 12/16/2017 TOM WALSH [facility], ALI FACP CCDS Ot R94.31 ABNORMAL ELECTROCARDIOGRAM [ECG] [EKG] 12/16/2017 TRACEY BOWEN L DYE FEEDER Ot I10 ESSENTIAL (PRIMARY) HYPERTENSION 12/16/2017 BAIMA, TRACEY L DYE FEEDER Ot I25.10 ATHSCL HEART DISEASE OF [place] CORONARY 12/16/2017 TRACEY BOWEN DYE FEEDER Ot R06.02 SHORTNESS OF BREATH 12/16/2017 VICTRACEY BUSTAMANTE DYE FEEDER Ot R94.31 ABNORMAL ELECTROCARDIOGRAM [ECG] [EKG] 12/16/2017 TOM PALMC, ALI FACP CCDS Ot E11.9 TYPE 2 DIABETES MELLITUS 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 12/16/2017 TOM PALMC, ALI FACP CCDS Ot I10 ESSENTIAL (PRIMARY) HYPERTENSION 12/16/2017 TOM PALMC, ALI FACP CCDS Ot R06.02 SHORTNESS OF BREATH 12/16/2017 TOM PALMC, ALI FACP CCDS Ot R94.31 ABNORMAL ELECTROCARDIOGRAM [ECG] [EKG] 12/16/2017 TOM PALMC, ALI FACP CCDS Ot E11.9 TYPE 2 DIABETES MELLITUS 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 12/16/2017 TOM PALMC, ALI FACP CCDS Ot I10 ESSENTIAL (PRIMARY) HYPERTENSION 12/16/2017 TOM WALSH FACC, ALI FACP CCDS Ot R06.02 SHORTNESS OF BREATH 12/16/2017 TOM WALSH FACC, ALI FACP CCDS Ot R07.89 OTHER CHEST PAIN 12/16/2017 TOM WALSH FACC, ALI FACP CCDS Ot R94.31 ABNORMAL ELECTROCARDIOGRAM [ECG] [EKG] 12/16/2017 TOM WALSH FACC, ALI FACP CCDS Ot E11.9 TYPE 2 DIABETES MELLITUS 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 12/16/2017 TOM WALSH FACC, ALI FACP CCDS Ot I10 ESSENTIAL (PRIMARY) HYPERTENSION 12/16/2017 TOM WALSH FACC, ALI FACP CCDS Ot R06.02 SHORTNESS OF BREATH 12/16/2017 TOM WALSH FACC, ALI FACP CCDS Ot R07.89 OTHER CHEST PAIN 12/16/2017 TOM WALSH FACC, ALI FACP CCDS Ot R94.31 ABNORMAL ELECTROCARDIOGRAM [ECG] [EKG] 12/16/2017 TOM PALMC, ALI FACP CCDS Ot E11.9 TYPE 2 DIABETES MELLITUS 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 12/16/2017 TOM PALMC, ALI FACP CCDS Ot I10 ESSENTIAL (PRIMARY) HYPERTENSION 12/16/2017 TOM WALSH FACC, ALI FACP CCDS Ot R06.02 SHORTNESS OF BREATH 12/16/2017 TOM WALSH [facility]ACC[facility]I [facility] R07.89 OTHER CHEST PAIN 12/16/2017 TOM WALSH FACC, ALI FACP CCDS Ot R94.31 ABNORMAL ELECTROCARDIOGRAM [ECG] [EKG] 12/16/2017 VICTRACEY BUSTAMANTE L DYE FEEDER Ot I10 ESSENTIAL (PRIMARY) HYPERTENSION 12/16/2017 VICALVARADO BUSTAMANTEHER L DYE FEEDER Ot I25.10 ATHSCL HEART DISEASE OF [place] CORONARY 12/16/2017 VICTRACEY BUSTAMANTE L DYE FEEDER Ot R06.02 SHORTNESS OF BREATH 12/16/2017 VICTRACEY BUSTAMANTE DYE FEEDER Ot R94.31 ABNORMAL ELECTROCARDIOGRAM [ECG] [EKG] 12/16/2017 TOM WALSH FACC, [facility]I [facility] E11.9 TYPE 2 DIABETES MELLITUS 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 12/16/2017 TOM WALSH FACC, SAKSHI FACP CCDS Ot I10 ESSENTIAL (PRIMARY) HYPERTENSION 12/16/2017 TOM WALSH FACC[facility]I [facility] R06.02 SHORTNESS OF BREATH 12/16/2017 TOM WALSH FACC, [facility]I [facility] Ot R94.31 ABNORMAL ELECTROCARDIOGRAM [ECG] [EKG] Procedures There is no data. Results Test Result Range Comprehensive metabolic panel - 07/21/17 15:55 Serum or plasma sodium measurement (moles/volume) 140 mmol/L 135-145 Serum or plasma potassium measurement (moles/volume) 4.6 mmol/L 3.6-5.0 Serum or plasma chloride measurement (moles/volume) 109 mmol/L 98-107 Carbon dioxide 22 mmol/L 21-32 Serum or plasma anion gap determination (moles/volume) 9 mmol/L 5-14 Serum or plasma urea nitrogen measurement (mass/volume) 29 mg/dL 7-18 Serum or plasma creatinine measurement (mass/volume) 1.28 mg/dL 0.60-1.30 Serum or plasma urea nitrogen/creatinine mass ratio 23 NRG Serum or plasma creatinine measurement with calculation of estimated glomerular filtration rate 54 NRG Serum or plasma glucose measurement (mass/volume) 140 mg/dL 70-105 Serum or plasma calcium measurement (mass/volume) 9.1 mg/dL 8.5-10.1 Serum or plasma total bilirubin measurement (mass/volume) 0.8 mg/dL 0.1-1.0 Serum or plasma alkaline phosphatase measurement (enzymatic activity/volume) 64 U/L 40-136 Serum or plasma aspartate aminotransferase measurement (enzymatic activity/ volume) 29 U/L 5-34 Serum or plasma alanine aminotransferase measurement (enzymatic activity/volume ) 27 U/L 0-55 Serum or plasma protein measurement (mass/volume) 7.4 g/dL 6.4-8.2 Serum or plasma albumin measurement (mass/volume) 4.1 g/dL 3.2-4.5 Lipid 1996 panel - 07/21/17 15:55 Serum or plasma triglyceride measurement (mass/volume) 139 mg/dL <150 Serum or plasma cholesterol measurement (mass/volume) 139 mg/dL < 200 Serum or plasma cholesterol in HDL measurement (mass/volume) 46 mg/ dL 40-60 Cholesterol in LDL [mass/volume] in serum or plasma by direct assay 74 mg/dL 1-129 Serum or plasma cholesterol in VLDL measurement (mass/volume) 28 mg/ dL 5-40 THYROID STIMULATING HORMONE - 07/21/17 15:55 THYROID STIMULATING HORMONE 30.61 u[iU]/mL 0.35-4.94 Complete blood count (CBC) with automated white blood cell (WBC) differential - 12/16/17 12:00 Blood leukocytes automated count (number/volume) 12.1 10*3/uL 4.3-11.0 Blood erythrocytes automated count (number/volume) 4.19 10*6/uL 4.35-5.85 Venous blood hemoglobin measurement (mass/volume) 13.1 g/dL 13.3-17.7 Blood hematocrit (volume fraction) 38 % 40-54 Automated erythrocyte mean corpuscular volume 90 [foz_us] 80-99 Automated erythrocyte mean corpuscular hemoglobin (mass per erythrocyte) 31 pg 25-34 Automated erythrocyte mean corpuscular hemoglobin concentration measurement ( mass/volume) 35 g/dL 32-36 Automated erythrocyte distribution width ratio 13.6 % 10.0-14.5 Automated blood platelet count (count/volume) 254 10*3/uL 130-400 Automated blood platelet mean volume measurement 11.2 [foz_us] 7.4-10.4 Automated blood neutrophils/100 leukocytes 81 % 42-75 Automated blood lymphocytes/100 leukocytes 7 % 12-44 Blood monocytes/100 leukocytes 12 % 0-12 Automated blood eosinophils/100 leukocytes 0 % 0-10 Automated blood basophils/100 leukocytes 0 % 0-10 Blood neutrophils automated count (number/volume) 9.7 10*3 1.8-7.8 Blood lymphocytes automated count (number/volume) 0.9 10*3 1.0-4.0 Blood monocytes automated count (number/volume) 1.4 10*3 0.0-1.0 Automated eosinophil count 0.0 10*3/uL 0.0-0.3 Automated blood basophil count (count/volume) 0.0 10*3/uL 0.0-0.1 Comprehensive metabolic panel - 12/16/17 12:00 Serum or plasma sodium measurement (moles/volume) 134 mmol/L 135-145 Serum or plasma potassium measurement (moles/volume) 4.5 mmol/L 3.6-5.0 Serum or plasma chloride measurement (moles/volume) 102 mmol/L 98-107 Carbon dioxide 17 mmol/L 21-32 Serum or plasma anion gap determination (moles/volume) 15 mmol/L 5-14 Serum or plasma urea nitrogen measurement (mass/volume) 40 mg/dL 7-18 Serum or plasma creatinine measurement (mass/volume) 1.64 mg/dL 0.60-1.30 Serum or plasma urea nitrogen/creatinine mass ratio 24 NRG Serum or plasma creatinine measurement with calculation of estimated glomerular filtration rate 40 NRG Serum or plasma glucose measurement (mass/volume) 328 mg/dL 70-105 Serum or plasma calcium measurement (mass/volume) 9.5 mg/dL 8.5-10.1 Serum or plasma total bilirubin measurement (mass/volume) 0.6 mg/dL 0.1-1.0 Serum or plasma alkaline phosphatase measurement (enzymatic activity/volume) 84 U/L 40-136 Serum or plasma aspartate aminotransferase measurement (enzymatic activity/ volume) 31 U/L 5-34 Serum or plasma alanine aminotransferase measurement (enzymatic activity/volume ) 40 U/L 0-55 Serum or plasma protein measurement (mass/volume) 8.0 g/dL 6.4-8.2 Serum or plasma albumin measurement (mass/volume) 3.7 g/dL 3.2-4.5 Blood lactic acid measurement (moles/volume) - 12/16/17 12:00 Blood lactic acid measurement (moles/volume) 2.75 mmol/L 0.50-2.00 Blood manual differential performed detection - 12/16/17 12:00 Blood monocytes/100 leukocytes 11 % NRG Manual blood segmented neutrophils/100 leukocytes 68 % NRG Blood band neutrophils/100 leukocytes 6 % NRG Manual blood lymphocytes/100 leukocytes 12 % NRG Manual eosinophils/100 leukocytes in nose 2 % NRG Manual blood basophils/100 leukocytes 0 % NRG Blood erythrocyte morphology finding identification NORMAL NRG Manual blood myelocytes/100 leukocytes 1 % NRG Serum or plasma lactate measurement (moles/volume) - 12/16/17 14:35 Serum or plasma lactate measurement (moles/volume) 2.31 mmol/L 0.50-2.00 Capillary blood glucose measurement by glucometer (mass/volume) - 12/16/17 15: 53 Capillary blood glucose measurement by glucometer (mass/volume) 269 mg/dL 70-110 Capillary blood glucose measurement by glucometer (mass/volume) - 12/16/17 20: 54 Capillary blood glucose measurement by glucometer (mass/volume) 147 mg/dL 70-110 Complete blood count (CBC) with automated white blood cell (WBC) differential - 12/17/17 03:40 Blood leukocytes automated count (number/volume) 7.9 10*3/uL 4.3-11.0 Blood erythrocytes automated count (number/volume) 3.44 10*6/uL 4.35-5.85 Venous blood hemoglobin measurement (mass/volume) 10.7 g/dL 13.3-17.7 Blood hematocrit (volume fraction) 31 % 40-54 Automated erythrocyte mean corpuscular volume 91 [foz_us] 80-99 Automated erythrocyte mean corpuscular hemoglobin (mass per erythrocyte) 31 pg 25-34 Automated erythrocyte mean corpuscular hemoglobin concentration measurement ( mass/volume) 34 g/dL 32-36 Automated erythrocyte distribution width ratio 13.7 % 10.0-14.5 Automated blood platelet count (count/volume) 240 10*3/uL 130-400 Automated blood platelet mean volume measurement 11.1 [foz_us] 7.4-10.4 Automated blood neutrophils/100 leukocytes 71 % 42-75 Automated blood lymphocytes/100 leukocytes 16 % 12-44 Blood monocytes/100 leukocytes 12 % 0-12 Automated blood eosinophils/100 leukocytes 1 % 0-10 Automated blood basophils/100 leukocytes 0 % 0-10 Blood neutrophils automated count (number/volume) 5.6 10*3 1.8-7.8 Blood lymphocytes automated count (number/volume) 1.3 10*3 1.0-4.0 Blood monocytes automated count (number/volume) 1.0 10*3 0.0-1.0 Automated eosinophil count 0.1 10*3/uL 0.0-0.3 Automated blood basophil count (count/volume) 0.0 10*3/uL 0.0-0.1 Comprehensive metabolic panel - 12/17/17 03:40 Serum or plasma sodium measurement (moles/volume) 139 mmol/L 135-145 Serum or plasma potassium measurement (moles/volume) 3.6 mmol/L 3.6-5.0 Serum or plasma chloride measurement (moles/volume) 112 mmol/L 98-107 Carbon dioxide 18 mmol/L 21-32 Serum or plasma anion gap determination (moles/volume) 9 mmol/L 5-14 Serum or plasma urea nitrogen measurement (mass/volume) 31 mg/dL 7-18 Serum or plasma creatinine measurement (mass/volume) 1.21 mg/dL 0.60-1.30 Serum or plasma urea nitrogen/creatinine mass ratio 26 NRG Serum or plasma creatinine measurement with calculation of estimated glomerular filtration rate 57 NRG Serum or plasma glucose measurement (mass/volume) 103 mg/dL 70-105 Serum or plasma calcium measurement (mass/volume) 8.2 mg/dL 8.5-10.1 Serum or plasma total bilirubin measurement (mass/volume) 0.5 mg/dL 0.1-1.0 Serum or plasma alkaline phosphatase measurement (enzymatic activity/volume) 61 U/L 40-136 Serum or plasma aspartate aminotransferase measurement (enzymatic activity/ volume) 28 U/L 5-34 Serum or plasma alanine aminotransferase measurement (enzymatic activity/volume ) 32 U/L 0-55 Serum or plasma protein measurement (mass/volume) 6.3 g/dL 6.4-8.2 Serum or plasma albumin measurement (mass/volume) 3.0 g/dL 3.2-4.5 Serum or plasma phosphate measurement (mass/volume) - 12/17/17 03:40 Serum or plasma phosphate measurement (mass/volume) 3.0 mg/dL 2.3-4.7 Magnesium - 12/17/17 03:40 Magnesium 1.9 mg/dL 1.8-2.4 THYROID STIMULATING HORMONE - 12/17/17 03:40 THYROID STIMULATING HORMONE 1.30 u[iU]/mL 0.35-4.94 Encounters ACCT No. Visit Date/Time Discharge Status Pt. Type Provider Facility Loc./Unit Complaint [id number] 07/21/2017 15:44:00 07/21/2017 23:59:59 CLS Outpatient TOM WALSH FACC, ALI FACP CCDS [facility] LAB E11.9, R94.31 , I10, R06.02 [id number] 04/14/2016 09:03:00 04/14/2016 23:59:59 CLS Outpatient TRACEY BOWEN [facility] LAB CAD, HYPERTENSION, ECG ABNORMAL, SOB [id number] 03/25/2016 11:59:00 03/25/2016 23:59:59 CLS Outpatient TOM WALSH FACC, ALI FACP CCDS [facility] CARD CHEST DISCOMFORT,DM II,HTN,SOB,ABNORMAL ECG [id number] 02/28/2016 14:52:00 02/28/2016 23:59:59 CLS Outpatient TOM WALSH FACC, ALI FACP CCDS [facility] CARD CHESTISCOMFORT, DM, HTN [id number] 02/25/2016 10:45:00 02/25/2016 23:59:59 CLS Outpatient TOM WALSH FACC, ALI FACP CCDS [facility] LAB CHEST DISCOMFORT,DM II [id number] 09/08/2014 10:37:00 09/08/2014 14:35:00 DIS Emergency RAMSES PICKERING MD [facility] ER RIGHT THIGH PAIN [id number] 12/16/2017 13:00:00 ACT Inpatient LEXIE CHASE DO [facility] ICU SEVERE SEPSIS,LLL PNEUMONIA [id number] 08/09/2012 13:37:00 Document Registration
--- NOTE | 2017-12-17 10:58 | Progress Note-Hospitalist ---
Subjective HPI/CC On Admission Date Seen by Provider: Dec 17, 2017 Time Seen by Provider: 10:00 Subjective/Events-last exam Patient doing much better today Cardiology consultation is appreciated for paroxysmal atrial fibrillation Sputum culture positive for strep pneumo so broad-spectrum of Zosyn will be changed to Rocephin Reconciled all home meds Blood sugars improved Nebulizer treatments are helping him Denies any pain Will initiate physical therapy along with transfer to fourth floor Urology was consulted for foreskin problems and he is having urinary retention post void residual of 800 mL so catheter placed under his order Telemetry will be maintained Review of Systems Pulmonary: Cough Genitourinary: Dysuria Focused Exam Lactate Level 12/16/17 12:00: Lactic Acid Level 2.75*H 12/16/17 14:35: Lactic Acid Level 2.31*H Objective Exam Vital Signs Vital Signs Date Time Temp Pulse Resp B/P (MAP) Pulse Ox O2 Delivery O2 Flow Rate FiO2 12/16/17 11:43 99.4 127 20 129/80 (96) Room Air 12/16/17 12:13 94 12/16/17 23:44 2.00 Capillary Refill : Greater Than 3 Seconds General Appearance: No Apparent Distress, WD/WN, Chronically ill Respiratory: No Accessory Muscle Use, No Respiratory Distress, Crackles, Decreased Breath Sounds, Wheezing Cardiovascular: Regular Rate, Rhythm, No Edema Neurologic/Psychiatric: Alert, Oriented x3, No Motor/Sensory Deficits, Depressed Affect Results/Procedures Lab Laboratory Tests 12/16/17 12:00 12/17/17 03:40 Patient resulted labs reviewed. Assessment/Plan Assessment and Plan Assess & Plan/Chief Complaint Pneumonia Wheezing Severe sepsis Acute renal failure Chronic debility Urinary retention requiring Garcia catheter Plan: Physical therapy Transfer to fourth floor Garcia catheter Continue antibiotics but change to Rocephin since strep pneumo and Gram stain of sputum Diagnosis/Problems Diagnosis/Problems (1) Severe sepsis Status: Acute (2) Pneumonia Status: Acute Qualifiers: Pneumonia type: due to unspecified organism Laterality: bilateral Lung location: lower lobe of lung Qualified Codes: J18.1 - Lobar pneumonia, unspecified organism (3) Wheezing Status: Acute (4) Diabetes mellitus Status: Chronic Qualifiers: Diabetes mellitus type: type 2 Diabetes mellitus sunday school missionary insulin use: without sunday school missionary use Diabetes mellitus complication status: with kidney complications Diabetes mellitus complication detail: with chronic kidney disease Chronic kidney disease stage: stage 2 (mild) Qualified Codes: E11.22 - Type 2 diabetes mellitus with diabetic chronic kidney disease; N18.2 - Chronic kidney disease, stage 2 (mild) (5) Hyponatremia Status: Acute (6) Acute renal insufficiency Status: Acute (7) Urinary retention Status: Acute Assessment & Plan: Urology consultation is appreciated (8) Debility, unspecified Status: Chronic Clinical Quality Measures DVT/VTE Risk/Contraindication: Risk Factor Score Per Nursin RFS Level Per Nursing on Admit: 4+=Very High LEXIE CHASE DO Dec 17, 2017 10:58
--- OUTSIDE RECORDS SUMMARY | 2017-12-17 11:03 | XMS REPORT | Continuity of Care Document ---
Author Author [facility] Organization [facility] Address Unknown Phone Unavailable Allergies Active Description Code Type Severity Reaction Onset Reported/Identified Relationship to Patient Clinical Status Yes No Known Drug Allergies [id number] Drug Allergy Unknown N/A 08/09/2012 Medications There [...] I10 ESSENTIAL (PRIMARY) HYPERTENSION 03/25/2016 TOM WALSH [facility], ALI FACP CCDS Ot R06.02 SHORTNESS OF BREATH 03/25/2016 TOM WALSH [facility], ALI FACP CCDS Ot R07.89 OTHER CHEST PAIN 03/25/2016 [facility] Ot R94.31 ABNORMAL ELECTROCARDIOGRAM [ECG] [EKG] 03/26/2016 [facility] CCDS Ot E11.9 TYPE 2 DIABETES MELLITUS 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 03/26/2016 TOM WALSH [facility], ALI FACP CCDS Ot I10 ESSENTIAL (PRIMARY) HYPERTENSION 03/26/2016 TOM WALSH [facility], ALI FACP CCDS Ot R06.02 SHORTNESS OF BREATH 03/26/2016 [facility] SAKSHI FACP CCDS Ot R07.89 OTHER CHEST PAIN 03/26/2016 TOM WALSH [facility], ALI FACP CCDS Ot R94.31 ABNORMAL ELECTROCARDIOGRAM [ECG] [EKG] 03/27/2016 TOM WALSH FACC, SAKSHI FACP CCDS Ot E11.9 TYPE 2 DIABETES MELLITUS 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 03/27/2016 [facility] CCDS Ot I10 ESSENTIAL (PRIMARY) HYPERTENSION 03/27/2016 OTM WALSH FACC, SAKSHI FACP CCDS Ot R06.02 SHORTNESS OF BREATH 03/27/2016 TOM WALSH FACC, ALI FACP CCDS Ot R07.89 OTHER CHEST PAIN 03/27/2016 TOM PALM, ALI FACP CCDS Ot R94.31 ABNORMAL ELECTROCARDIOGRAM [ECG] [EKG] 04/14/2016 TRACEY BOWEN L [employer]IAN Ot I10 ESSENTIAL (PRIMARY) HYPERTENSION 04/15/2016 VICMA TRACEY L [employer]CHN[employer]IAN Ot I10 ESSENTIAL (PRIMARY) HYPERTENSION 04/15/2016 VICMA TRACEY L [employer] TECHNICIAN Ot I25.10 ATHSCL HEART DISEASE OF [place] CORONARY 04/15/2016 TRACEY BOWEN L [employer] TECHN[employer]IAN Ot R06.02 SHORTNESS OF BREATH 04/15/2016 ALVARADO BOWENHER L [employer] TECHNICIAN Ot R94.31 ABNORMAL ELECTROCARDIOGRAM [ECG] [EKG] 04/18/2016 TRACEY BOWEN L [employer] TECHNICIAN Ot I10 ESSENTIAL (PRIMARY) HYPERTENSION 04/18/2016 JESSI TRACEY L [employer] TECHNICIAN Ot I25.10 ATHSCL HEART DISEASE OF [place] CORONARY 04/18/2016 ALVARADO BOWENHER L [employer] TECHNICIAN Ot R06.02 SHORTNESS OF BREATH 04/18/2016 ALVARADO BOWENHER L [employer] TECHNICIAN Ot R94.31 ABNORMAL ELECTROCARDIOGRAM [ECG] [EKG] 04/18/2016 [...] ELECTROCARDIOGRAM [ECG] [EKG] 05/06/2016 VICALVARADO BUSTAMANTEHER L [employer] TECHNICIAN Ot I10 ESSENTIAL (PRIMARY) HYPERTENSION 05/06/2016 TRACEY BOWEN L [employer] TECHNICIAN Ot I25.10 ATHSCL HEART DISEASE OF [place] CORONARY 05/06/2016 ALVARADO BOWENHER L [employer] TECHNICIAN Ot R06.02 SHORTNESS OF BREATH 05/06/2016 ALVARADO BOWENHER L [employer] TECHNICIAN Ot R94.31 ABNORMAL ELECTROCARDIOGRAM [ECG] [EKG] 08/11/2017 [...] R07.89 OTHER CHEST PAIN 12/16/2017 [facility] CCDS Ot R94.31 ABNORMAL ELECTROCARDIOGRAM [ECG] [EKG] 12/16/2017 TRACEY BOWEN [employer]CH[employer]IAN Ot I10 ESSENTIAL (PRIMARY) HYPERTENSION 12/16/2017 TRACEY BOWEN L [employer] TECHNICIAN Ot I25.10 ATHSCL HEART DISEASE OF [place] CORONARY 12/16/2017 TRACEY BOWEN [employer]CHN[employer]IAN Ot R06.02 SHORTNESS OF BREATH 12/16/2017 TRACEY BOWEN [employer]CHN[employer]IAN Ot R94.31 ABNORMAL ELECTROCARDIOGRAM [ECG] [EKG] 12/16/2017 TOM PLAM, ALI FACP CCDS Ot E11.9 TYPE 2 [...] ABNORMAL ELECTROCARDIOGRAM [ECG] [EKG] 12/16/2017 [facility] CCDS Ot E11.9 TYPE 2 DIABETES MELLITUS 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 12/16/2017 TOM WALSH FACC, ALI FACP CCDS Ot I10 ESSENTIAL (PRIMARY) HYPERTENSION 12/16/2017 TOM [facility], ALI FACP CCDS Ot R06.02 SHORTNESS OF BREATH 12/16/2017 [facility]ACP CCDS Ot R07.89 OTHER CHEST [...] R07.89 OTHER CHEST PAIN 12/16/2017 TOM WALSH [facility], ALI FACP CCDS Ot R94.31 ABNORMAL ELECTROCARDIOGRAM [ECG] [EKG] 12/16/2017 TRACEY BOWEN L [employer] TECHNICIAN Ot I10 ESSENTIAL (PRIMARY) HYPERTENSION 12/16/2017 JESSI TRACEY L [employer] TECHNICIAN Ot I25.10 ATHSCL HEART DISEASE OF [place] CORONARY 12/16/2017 JESSI TRACEY L [employer] TECHNICIAN Ot R06.02 SHORTNESS OF BREATH 12/16/2017 TRACEY BOWEN L [employer]CHNICIAN Ot R94.31 ABNORMAL ELECTROCARDIOGRAM [ECG] [EKG] 12/16/2017 TOM WALSH [facility], ALI FACP CCDS Ot E11.9 TYPE 2 DIABETES MELLITUS 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 12/16/2017 TOM [facility], ALI FACP CCDS Ot I10 ESSENTIAL (PRIMARY) HYPERTENSION 12/16/2017 [facility] CCDS Ot R06.02 SHORTNESS OF BREATH 12/16/2017 TOM WALSH FACC, ALI FACP CCDS Ot R94.31 ABNORMAL ELECTROCARDIOGRAM [ECG] [EKG] 12/16/2017 [facility] CCDS Ot E11.9 TYPE 2 DIABETES MELLITUS 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 12/16/2017 [facility]I FACP CCDS Ot I10 ESSENTIAL (PRIMARY) HYPERTENSION 12/16/2017 [facility]I FACP CCDS Ot R06.02 SHORTNESS OF BREATH 12/16/2017 [facility]I FACP CCDS Ot R07.89 OTHER CHEST PAIN 12/16/2017 [facility]I FACP CCDS Ot R94.31 ABNORMAL ELECTROCARDIOGRAM [ECG] [EKG] 12/16/2017 TOM WALSH [facility], ALI FACP CCDS Ot E11.9 TYPE 2 DIABETES MELLITUS 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 12/16/2017 TOM WALSH [facility], ALI FACP CCDS Ot I10 ESSENTIAL (PRIMARY) HYPERTENSION 12/16/2017 TOM WALSH [facility], ALI FACP CCDS Ot R06.02 SHORTNESS OF BREATH 12/16/2017 TOM WALSH [facility], ALI FACP CCDS Ot R07.89 OTHER CHEST PAIN 12/16/2017 TOM WALSH [facility], ALI FACP CCDS Ot R94.31 ABNORMAL ELECTROCARDIOGRAM [ECG] [EKG] 12/16/2017 TOM WALSH [facility], ALI FACP CCDS Ot E11.9 TYPE 2 DIABETES MELLITUS 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 12/16/2017 TOM WALSH [facility], ALI FACP CCDS Ot I10 ESSENTIAL (PRIMARY) HYPERTENSION 12/16/2017 TOM WALSH [facility], ALI FACP CCDS Ot R06.02 SHORTNESS OF BREATH 12/16/2017 TOM WALSH [facility], ALI FACP CCDS Ot R07.89 OTHER CHEST PAIN 12/16/2017 TOM WALSH [facility], ALI FACP CCDS Ot R94.31 ABNORMAL ELECTROCARDIOGRAM [ECG] [EKG] 12/16/2017 TRACEY BOWEN L [employer]CHNICIAN Ot I10 ESSENTIAL (PRIMARY) HYPERTENSION 12/16/2017 BAIMA, TRACEY L [employer] TECHNICIAN Ot I25.10 ATHSCL HEART DISEASE OF [place] CORONARY 12/16/2017 TRACEY BOWEN [employer]CHN[employer] Ot R06.02 SHORTNESS OF BREATH 12/16/2017 VICTRACEY BUSTAMANTE [employer]CHN[employer]IAN Ot R94.31 ABNORMAL ELECTROCARDIOGRAM [ECG] [EKG] 12/16/2017 [...] OF BREATH 12/16/2017 TOM WALSH [facility].89 OTHER CHEST PAIN 12/16/2017 TOM WALSH FACC, ALI FACP CCDS Ot R94.31 ABNORMAL ELECTROCARDIOGRAM [ECG] [EKG] 12/16/2017 VICTRACEY BUSTAMANTE L [employer] TECHNICIAN Ot I10 ESSENTIAL (PRIMARY) HYPERTENSION 12/16/2017 VICALVARADO BUSTAMANTEHER L [employer] TECHNICIAN Ot I25.10 ATHSCL HEART DISEASE OF [place] CORONARY 12/16/2017 VICTRACEY BUSTAMANTE L [employer] TECHNICIAN Ot R06.02 SHORTNESS OF BREATH 12/16/2017 VICTRACEY BUSTAMANTE [employer]CHNICIAN Ot R94.31 ABNORMAL ELECTROCARDIOGRAM [ECG] [EKG] 12/16/2017 TOM WALSH FACC, [facility] E11.9 TYPE 2 DIABETES MELLITUS 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 12/16/2017 TOM WALSH FACC, SAKSHI FACP CCDS Ot I10 ESSENTIAL (PRIMARY) HYPERTENSION 12/16/2017 TOM WALSH [facility]ACC, [facility] R06.02 SHORTNESS OF BREATH 12/16/2017 TOM WALSH FACC, [facility] R94.31 ABNORMAL ELECTROCARDIOGRAM [ECG] [EKG] [...] Status Pt. Type Provider Facility Loc./Unit Complaint [id number] 07/21/2017 15:44:00 07/21/2017 23:59:59 CLS Outpatient TOM WALSH FACC, ALI FACP CCDS [facility] LAB E11.9, R94.31 , I10, R06.02 [id number] 04/14/2016 09:03:00 04/14/2016 23:59:59 CLS Outpatient TRACEY BOWEN [facility] LAB CAD, HYPERTENSION, ECG ABNORMAL, SOB [id number] 03/25/2016 11:59:00 03/25/2016 23:59:59 CLS Outpatient TOM WALSH FACC, ALI FACP CCDS [facility] CARD CHEST DISCOMFORT,DM II,HTN,SOB,ABNORMAL ECG [id number] 02/28/2016 14:52:00 02/28/2016 23:59:59 CLS Outpatient TOM WALSH FACC, ALI FACP CCDS [facility] CARD CHESTISCOMFORT, DM, HTN [id number] 02/25/2016 10:45:00 02/25/2016 23:59:59 CLS Outpatient TOM WALSH FACC, ALI FACP CCDS [facility] LAB CHEST DISCOMFORT,DM II [id number] 09/08/2014 10:37:00 09/08/2014 14:35:00 DIS Emergency RAMSES PICKERING MD [facility] ER RIGHT THIGH PAIN [id number] 12/16/2017 13:00:00 ACT Inpatient LXEIE CHASE DO [facility] ICU SEVERE SEPSIS,LLL PNEUMONIA [id number] 08/09/2012 13:37:00 Document Registration
[2017-12-17] MEDS ORDERED: LIDOCAINE UROJET 2% GEL 10 ML PKG TOP NR (11:15)
--- NOTE | 2017-12-17 12:00 | Physical Therapy Evaluation ---
PT Evaluation-General Medical Diagnosis Admission Date Dec 16, 2017 at 13:00 Medical Diagnosis: severe sepsis/pneumonia Onset Date: Dec 16, 2017 Therapy Diagnosis Therapy Diagnosis: impaired mobility/weakness Height/Weight Height (Feet): 5 Height (Inches): 7.00 Weight (Pounds): 194 Weight (Ounces): 2.0 Precautions Precautions/Isolations: Fall Prevention, Standard Precautions, Pressure Ulcer Weight Bear Status Right Lower Extremity: Right Full Weight Bearing Left Lower Extremity: Left Full Weight Bearing Referral Physician: Racquel Reason for Referral: Evaluation/Treatment Medical History Pertinent Medical History: DM, Renal Insufficiency Current History ED via POV from office with cough and general malaise 1-2 wks Reviewed History: Yes Social History Home: Single Level Current Living Status: Other Family Prior/[facility] Prior Level of Function Functional [place] Measure 0=Not Assessed/NA 4=Minimal Assistance 1=Total Assistance 5=Supervision or Setup 2=Maximal Assistance 6=Modified [place] 3=Moderate Assistance 7=Complete [place] Bed Mobility: 6 Transfers (B,C,W/C) (FIM): 6 Gait: 6 lives with family/ uses cane for ambulation, however, wants a FWW PT Evaluation-Current Subjective Patient agrees to PT. Pain Numeric Pain Scale: 0-No Pain Location: No Pain Reported Objective Patient Orientation: Normal For Age Problem Solving: Fair Attachments: Oxygen, IV ROM/Strength ROM Lower Extremities bilateral LE WNL Strength Lower Extremities 3/5 grossly bilateral LE Integumentary/Posture Integumentary refer to nursing notes Bowel Incontinence: No Bladder Incontinence: No Posture kyphotic Neuromuscular (Tone, Coordination, Reflexes) diminished coordination due to weakness/debility Sensory Vision: Functional Hearing: Impaired Sensation Right Lower Extremit: Impaired Sensation Left Lower Extremity: Impaired Transfers Functional [place] Measure 0=Not Assessed/NA 4=Minimal Assistance 1=Total Assistance 5=Supervision or Setup 2=Maximal Assistance 6=Modified [place] 3=Moderate Assistance 7=Complete [place] Transfers (B, C, W/C) (FIM): 4 Scootin Rollin Supine to/from Sit: 4 Sit to/from Stand: 4 Gait Mode of Locomotion: Walk Anticipated Mode of Locomotion: Both Gait (FIM): 1 Distance (FIM): 1=up to 49 ft Distance: 25' Gait Level of Assist: 4 Gait Persons Needed: 1 Gait Assistive Device: FWW Comments/Gait Description slow, shuffle gait sequence with c/o increase SOA on RA with SAO2 97%. Balance Sitting Static: Normal Sitting Dynamic: Fair Standing Static: Fair Standing Dynamic: Fair Assessment/Needs 82 y.o. male, will benefit from skilled PT to address functional strength and mobility to improve current LOF and to safely return to home at maximum LOF with family assist Rehab Potential: Fair PT Jail Goals Type Soldering Machine Tender Goals PT Type Soldering Machine Tender Goals Time Frame: Jan 01, 2018 Transfers (B,C,W/C) (FIM): 6 Gait (FIM): 5 Gait distance (FIM): 3=150 ft Distance: 200' Gait Level of Assist: 5 Gait Assistive Device: FWW PT Plan Problem List Problem List: Activity Tolerance, Functional Strength, Safety, Balance, Gait, Transfer, Bed Mobility Treatment/Plan Treatment Plan: Continue Plan of Care Treatment Plan: Bed Mobility, Education, Functional Activity Teri, Functional Strength, Gait, Safety, Therapeutic Exercise, Transfers Treatment Duration: Jan 01, 2018 Frequency: 6 times per week Estimated Hrs Per Day: .5 hour per day Patient and/or Family Agrees t: Yes Discharge Recommendations Therapy D/C Recommendations: Home w/ Family Support, Physical Therapy Home Care , Senior Care (TCU/NH) Time/GCodes Time In: 1125 Time Out: 1140 Total Billed Treatment Time: 15 Total Billed Treatment [address] [facility] 15 min RANDALL GAMEZ PT Dec 17, 2017 12:00
--- NOTE | 2017-12-17 12:19 | Occupational Therapy Eval ---
OT Evaluation-General/PLF Medical Diagnosis Admission Date Dec 16, 2017 at 13:00 Medical Diagnosis: severe sepsis/pneumonia Onset Date: Dec 16, 2017 Therapy Diagnosis Therapy Diagnosis: Weakness Height/Weight Height (Feet): 5 Height (Inches): 7.00 Weight (Pounds): 194 Weight (Ounces): 2.0 Precautions Precautions/Isolations: Fall Prevention, Standard Precautions, Pressure Ulcer Safety Interventions: None Referral Physician: Racquel Referral Reason: Activity Tolerance, Self Care, Evaluation/Treatment, Strengthening/ROM Medical History Pertinent Medical History: Atrial Fib, DM, HTN, Renal Insufficiency Additional Medical History Pneumonia, ARF Reviewed History: Yes Social History Home: Single Level Current Living Status: Other Family (Daughter and son in law) Entry Into Home: Stairs With Railing Steps Into Home: 3 Steps Inside Home: 1 ADL-Prior Level of Function ADL PLOF Comments Pt. states that he was independent with daily tasks previous to this hospitalization. DME/Equipment Comments Pt. has a cane. States that he doesn't know where his walker went. Drive Self: No OT Current Status Subjective Pt. does not report pain. Appearance Pt. in bed. Agrees to transfer to chair with OT assist. Mental Status/Objective Patient Orientation: Unable to Assess Attachments: IV, Oxygen Current Upper Extremity ROM Pt. demonstrates approximately 70 degrees shoulder flexion actively. ADL-Treatment Functional [place] Measure 0=Not Assessed/NA 4=Minimal Assistance 1=Total Assistance 5=Supervision or Setup 2=Maximal Assistance 6=Modified [place] 3=Moderate Assistance 7=Complete IndependenceIRFPAI Quality Coding Scale 6 Independent with activity with or without an assistive device 5 Patient requires set up or clean up by helper. Patient completes activity by themselves 4 Supervision or touching assist (CGA). [place] provide cues , steadying assist 3 The helper provides less than half the effort to complete the activity 2 The helper provides more than half the effort to complete the activity 1 Dependent. The helper does all the effort to complete an activity 7 Patient refused to complete or attempt activity 9 The patient did not perform the activity before the current illness or injury 88 Not attempted due to Medical conditions or safety concerns Lower Body Dressing (FIM): 1 (Pt. does not seem to understand what is being asked of him. Does attempt to reach his feet, but only touches his sock. Is unable to doff or don socks.) Transfers (B, C, W/C) (FIM): 3 (Mod assist to transfer supine-sit and min assist for sit-stand and transfer to chair. Increased time needed.) Education OT Patient Education: Correct positioning, Modified ADL techniques, Progress toward Goal/Update tx plan, Purpose of tx/functional activities, Reviewed precautions, Rehab process, Transfer techniques Teaching Recipient: Patient Teaching Methods: Demonstration, Discussion Response to Teaching: Verbalize Understanding, Return Demonstration OT Short Term Goals Short Term Goals 1=Demonstrate adherence to instructed precautions during ADL tasks. 2=Patient will verbalize/demonstrate understanding of assistive devices/ modifications for ADL. 3=Patient will improve strength/tolerance for activity to enable patient to perform ADL's. OT Senior Care Goals Housekeeping Department Worker Goals Time Frame: Dec 31, 2017 Eating (FIM): 5 Grooming(FIM): 5 Bathing(FIM): 5 Upper Body Dressing(FIM): 5 Lower Body Dressing(FIM): 5 Toileting(FIM): 6 Transfers (B,C,W/C) (FIM): 6 Toilet/Commode Transfer(FIM): 6 Additional Goals: 1-Demonstrate ADL Tasks, 2-Verbalize Understanding, 3- ImproveStrength/Teri 1=Demonstrate adherence to instructed precautions during ADL tasks. 2=Patient will verbalize/demonstrate understanding of assistive devices/ modifications for ADL. 3=Patient will improve strength/tolerance for activity to enable patient to perform ADL's. OT Education/Plan Problem List/Assessment Assessment: Decreased Activ Tolerance, Decreased UE Strength, Dependent Transfers, Impaired Bed Mobility, Impaired Cognition, Impaired Funct Balance, Impaired I ADL's, Impaired Self-Care Skills, Restricted Funct UE ROM Discharge Recommendations Plan/Recommendations: Continue POC Therapy D/C Recommendations: Home w/ Family Support, Occupational Therapy Home Care, Scheduled Assistance Comment Equipment needs to be determined. Treatment Plan/Plan of Care Treatment,Training & Education: Yes Patient would benefit from OT for education, treatment and training to promote independence in ADL's, mobility, safety and/or upper extremity function for ADL' s. Plan of Care: ADL Retraining, Functional Mobility, UE Funct Exercise/Act Treatment Duration: Dec 31, 2017 Frequency: 5 times per week Estimated Hrs Per Day: .25 hour per day Agreement: Yes Rehab Potential: Fair Time/GCodes Start Time: 12:00 Stop Time: 12:15 Total Time Billed (hr/min): 15 Billed Treatment Time 1, TOMMY RODARTE OT Dec 17, 2017 12:19
--- NOTE | 2017-12-17 14:46 | Wound Care Assessment ---
Wound Care Assessment Date Seen by Provider: Dec 17, 2017 Time Seen by Provider: 14:15 Chief Complaint Bilateral buttock excoriation. HPI The patient is an 82 year old male admitted for pneumonia and noted to have excoritation of the bilateral buttocks. He sits in a chair a lot at home and is incontinent of urine. The area is macerated. The patient also tends to scoot for transfers. This is discouraged. Past Medical History: Admits Diabetes Type II, Admits Heart Disease (atrial fibrillation.) CRF, HTN Smoking Status: Never a Smoker Recreational Drug Use: No Alcohol Use: Denies Use Review of Systems Pulmonary: No Dyspnea Cardiovascular: No: Chest Pain Exam Vital Signs Date Time Temp Pulse Resp B/P (MAP) Pulse Ox O2 Delivery O2 Flow Rate FiO2 12/17/17 12:00 99 15 116/73 (87) 98 Nasal Cannula 2.00 12/17/17 08:00 98.4 Capillary Refill : Greater Than 3 Seconds General Appearance: no apparent distress Respiratory: no respiratory distress Skin: other (maceration and excoriation of bilateral buttocks of perineum.) Results Laboratory Tests 12/16/17 15:53: Glucometer 269H 12/16/17 20:54: Glucometer 147H 12/17/17 03:40: White Blood Count 7.9, Red Blood Count 3.44L, Hemoglobin 10.7L, Hematocrit 31L, Mean Corpuscular Volume 91, Mean Corpuscular Hemoglobin 31, Mean Corpuscular Hemoglobin Concent 34, Red Cell Distribution Width 13.7, Platelet Count 240, Mean Platelet Volume 11.1H, Neutrophils (%) (Auto) 71, Lymphocytes (%) (Auto) 16 , Monocytes (%) (Auto) 12, Eosinophils (%) (Auto) 1, Basophils (%) (Auto) 0, Neutrophils # (Auto) 5.6, Lymphocytes # (Auto) 1.3, Monocytes # (Auto) 1.0, Eosinophils # (Auto) 0.1, Basophils # (Auto) 0.0, Sodium Level 139, Potassium Level 3.6, Chloride Level 112#H, Carbon Dioxide Level 18L, Anion Gap 9, Blood Urea Nitrogen 31H, Creatinine 1.21, Estimat Glomerular Filtration Rate 57, BUN/ Creatinine Ratio 26, Glucose Level 103, Calcium Level 8.2L, Phosphorus Level 3.0 , Magnesium Level 1.9, Total Bilirubin 0.5, Aspartate Amino Transf (AST/SGOT) 28 , Alanine Aminotransferase (ALT/SGPT) 32, Alkaline Phosphatase 61, Total Protein 6.3L, Albumin 3.0L, Thyroid Stimulating Hormone (TSH) 1.30 12/17/17 11:26: Glucometer 156H Microbiology 12/16/17 Gram Stain - Final, Resulted 12/16/17 Sputum Culture - Preliminary, Resulted Probable Strep Pneumoniae Normal traci Microbiology 12/16/17 Gram Stain - Final, Resulted 12/16/17 Sputum Culture - Preliminary, Resulted Probable Strep Pneumoniae Normal traci Assessment/Plan/Dx 1. Moisture associated skin damage, perineum. 2. Debility. 3. Urinary Incontinence. Plan: Barrier cream, frequent toileting, stand instead of scoot. UNA LI MD Dec 17, 2017 14:46
--- NOTE | 2017-12-17 15:17 | CONSULTATION REPORT ---
DATE OF SERVICE: 12/17/2017 ATTENDING PHYSICIAN: Dr. Clement. SUMMARY: An 82-year-old white man admitted to the ICU by Dr. Clement with pneumonia. The patient has been voiding on his own, but there was question about the amounts, where bladder scan was done yesterday and revealed 800 mL of urine, although the patient was not feeling uncomfortable at all. The nursing staff tried more than once to insert the catheter, was unsuccessful. On physical exam, there is a severe phimosis, was possibly the foreskin being stuck over the glans, unable to visualize the meatus, testes down the scrotum and atrophic. Rectal exam deferred. IMPRESSION: 1. Severe phimosis with retention. 2. Pneumonia. PLAN: I attempted myself to insert a Garcia catheter in the patient, even tried to spread the foreskin with hemostat, was unsuccessful to do so, again seems that the skin is stuck on the glans and the only other alternative if a catheter is needed on an urgent situation a dorsal slit, on a less urgent situation as an outpatient once he heal from that pneumonia, we can anticipate a dorsal slit possible circumcision. Job ID: [id number] DocumentID: [id number] Dictated Date: 12/17/2017 12:44:53 Tool Carrier Date: 12/17/2017 15:07:28 Dictated By: MARISSA BARCENAS MD
[2017-12-17] MEDS ORDERED: ZINC OXIDE 16% OINT (BUTT PASTE) 113 GM TUBE TOP PRN (15:45)
[2017-12-17] MEDS: glipiZIDE 5 MG (GLUCOTROL) TAB PO SCH (16:33)
[2017-12-17] MEDS: ZINC OXIDE 20% OINT 30 GM TUBE TOP SCH ×2 (16:34→20:58)
[2017-12-17] MEDS: LEVOTHYROXINE 100 MCG (LEVOTHROID) TAB PO SCH (20:27)
[2017-12-17] MEDS: ASPIRIN E.C. 81 MG (ECOTRIN) TAB PO SCH (20:27)
[2017-12-18 00:09] VITALS: BP 118/67
[2017-12-18] MEDS: RT-ALBUTEROL/IPRATROPIUM 3 ML (DUONEB) VIAL INH SCH ×2 (02:10→10:43)
[2017-12-18] MEDS: PIPERACILLIN SODIUM/TAZOBACTAM 4.5 GM in NS (IVPB) 100 ML IV SCH (03:14)
[2017-12-18 03:47] VITALS: BP 126/73
[2017-12-18 03:54] LABS: BASOPHILS % (AUTO) 0 % (0-10); EOSINOPHILS # (AUTO) 0.1 10^3/uL (0.0-0.3); EOSINOPHILS % (AUTO) 1 % (0-10); HEMATOCRIT 34 % (40-54); HEMOGLOBIN 11.2 G/DL (13.3-17.7); LYMPHOCYTES # (AUTO) 1.2 X 10^3 (1.0-4.0); LYMPHOCYTES % (AUTO) 13 % (12-44); MEAN CORPUSCULAR HEMOGLOBIN 31 PG (25-34); MEAN CORPUSCULAR HGB CONC 33 G/DL (32-36); MEAN CORPUSCULAR VOLUME 92 FL (80-99); MONOCYTES # (AUTO) 0.9 X 10^3 (0.0-1.0); MONOCYTES % (AUTO) 10 % (0-12); NEUTROPHILS # (AUTO) 6.8 X 10^3 (1.8-7.8); NEUTROPHILS % (AUTO) 75 % (42-75); PLATELET COUNT 269 10^3/uL (130-400); RED BLOOD COUNT 3.67 10^6/uL (4.35-5.85); RED CELL DISTRIBUTION WIDTH 14.3 % (10.0-14.5); WHITE BLOOD COUNT 9.1 10^3/uL (4.3-11.0)
[2017-12-18 04:16] LABS: BUN/CREATININE RATIO 18; CALCIUM 8.3 MG/DL (8.5-10.1); CARBON DIOXIDE 15 MMOL/L (21-32); CHLORIDE 114 MMOL/L (98-107); CREATININE SERUM 1.14 MG/DL (0.60-1.30); GFR ESTIMATED > 60; GLUCOSE 143 MG/DL (70-105); SODIUM 140 MMOL/L (135-145)
[2017-12-18] MEDS: inSUlin ASPART (NovoLOG) 1 UNIT/0.01 ML (CHARGE PER UNIT) SC SCH ×2 (05:25→11:32)
[2017-12-18 08:00] VITALS: BP 140/62
[2017-12-18] MEDS: APIXABAN 5 MG (ELIQUIS) TABLET PO SCH (08:07)
[2017-12-18] MEDS: PANTOPRAZOLE 40 MG/10 ML (PROTONIX) VIAL IV SCH (08:08)
[2017-12-18] MEDS: ZINC OXIDE 20% OINT 30 GM TUBE TOP SCH (08:17)
--- NOTE | 2017-12-18 08:18 | Diagnostic Imaging Report ---
INDICATION: Followup pneumonia. TIME OF EXAMINATION: 08:12 a.m. COMPARISON: Correlation is made with prior study one day earlier. FINDINGS: The heart size is stable. There is some residual infiltrate or atelectasis in the left base, partially obscuring the left hemidiaphragm. The right lung is clear. The pulmonary vascularity is normal. No effusion or pneumothorax is seen. IMPRESSION: Mild residual left basilar infiltrate/atelectasis, similar to the examination one day earlier. Dictated by: Dictated on workstation # [id number]
[2017-12-18] MEDS ORDERED: cefTRIAXone 1 GM/NS 100 ML IV SCH ×2 (09:00)
[2017-12-18] MEDS ORDERED: APIX5TAB PO (10:31)
[2017-12-18] MEDS ORDERED: CEFD300C3 PO (10:31)
--- NOTE | 2017-12-18 10:34 | Discharge Summary-Hospitalist ---
Diagnosis/Chief Complaint Date of Admission Dec 16, 2017 at 13:00 Date of Discharge Discharge Date: Dec 18, 2017 Admission Diagnosis Pneumonia Wheezing Diabetes mellitus Acute renal failure Hypertension Atrial fibrillation paroxysmal type cardiology consultation appreciated Chronic debility Plan: Reconciled all home meds IV antibiotics Nebulizer treatments Oxygen supplementation Cardiology consultation is appreciated Discharge Diagnosis Pneumonia Wheezing Severe sepsis Acute renal failure Chronic debility Urinary retention requiring Garcia catheter Plan: Physical therapy Transfer to fourth floor Garcia catheter Continue antibiotics but change to Rocephin since strep pneumo and Gram stain of sputum (1) Severe sepsis Status: Resolved (2) Pneumonia Status: Acute (3) Wheezing Status: Resolved (4) Diabetes mellitus Status: Chronic (5) Hyponatremia Status: Resolved (6) Acute renal insufficiency Status: Resolved (7) Urinary retention Status: Chronic Assessment & Plan: Urology consultation is appreciated (8) Debility, unspecified Status: Chronic (9) Episodic atrial fibrillation Status: Chronic Discharge Summary Discharge Physical Exam Allergies: Coded Allergies: No Known Drug Allergies (Unverified , 08/09/12) Vitals & I&Os Vital Signs Date Time Temp Pulse Resp B/P (MAP) Pulse Ox O2 Delivery O2 Flow Rate FiO2 12/18/17 10:43 96 Room Air 12/18/17 09:00 2.00 12/18/17 08:00 97.4 75 22 140/62 (88) General Appearance: Alert, Oriented X3, Cooperative Respiratory: Clear to Auscultation, Normal Air Movement Cardiovascular: Regular Rate, Normal S1, Normal S2 Psych/Mental Status: Mental Status NL, Mood NL Hospital Course Hospital course: Patient had an uneventful hospital course. He was assessed in the ER found to have pneumonia with hyponatremia and acute renal failure and wheezing and hypoxia. 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 Hyponatremia and acute renal failure resolved with IV fluid resuscitation and those were discontinued. Nebulizer treatments improved wheezing and that resolved. Patient tolerated antibiotics well and was able to ambulate with respiratory therapy and noted to not meet criteria for home oxygen requirement. Overall patient improved but chronic debility precludes anything more than back to baseline as he was before. Urinary retention noted but he was not in any distress so he will have follow-up with Dr. Renner for that situation as an outpatient. He will see Dr. Blaise for atrial fibrillation to establish care. He will see his primary care provider on Thursday. Labs (last 24 hrs) Laboratory Tests 12/17/17 11:26: Glucometer 156H 12/17/17 16:05: Glucometer 153H 12/17/17 20:48: Glucometer 162H 12/18/17 03:05: White Blood Count 9.1, Red Blood Count 3.67L, Hemoglobin 11.2L, Hematocrit 34L, Mean Corpuscular Volume 92, Mean Corpuscular Hemoglobin 31, Mean Corpuscular Hemoglobin Concent 33, Red Cell Distribution Width 14.3, Platelet Count 269, Mean Platelet Volume 11.0H, Neutrophils (%) (Auto) 75, Lymphocytes (%) (Auto) 13 , Monocytes (%) (Auto) 10, Eosinophils (%) (Auto) 1, Basophils (%) (Auto) 0, Neutrophils # (Auto) 6.8, Lymphocytes # (Auto) 1.2, Monocytes # (Auto) 0.9, Eosinophils # (Auto) 0.1, Basophils # (Auto) 0.0, Sodium Level 140, Potassium Level 4.0, Chloride Level 114H, Carbon Dioxide Level 15L, Anion Gap 11, Blood Urea Nitrogen 21H, Creatinine 1.14, Estimat Glomerular Filtration Rate > 60, BUN /Creatinine Ratio 18, Glucose Level 143H, Calcium Level 8.3L 12/18/17 05:04: Glucometer 198H Microbiology 12/16/17 Blood Culture - Preliminary, Resulted No growth 12/16/17 MRSA Screen - Final, Complete MRSA not isolated Patient resulted labs reviewed. Pending Labs Laboratory Tests 12/18/17 05:04: Glucometer 198 Discussion & Recommendations Discharge Planning: <30 minutes discharge planning Discharge Home Medications: Active Scripts Active Cefdinir 300 Mg Capsule 300 Mg PO BID Eliquis (Apixaban) 5 Mg Tablet 5 Mg PO BID Reported Vitamin C with Kirti Hips (Ascorbic Acid) 1,000 Mg Tablet 1,000 Mg PO HS Tussin Dm Cough Syrup (Guaifenesin/Dextromethorphan) 120 Ml Syrup 10 Ml PO Q4H PRN Robitussin Nighttime Cough Dm (Dextromethorphan Hb/Doxylamine) 237 Ml Liquid 10 Ml PO Q6H PRN Aspirin EC (Aspirin) 81 Mg Tablet.dr 81 Mg PO HS Complete Multi 50+ Tablet (Multivit-Min/FA/Lycopene/Lut) 1 Each Tablet 1 Tab PO HS Glipizide 10 Mg Tablet 10 Mg PO HS Pravastatin Sodium 20 Mg Tablet 20 Mg PO HS Losartan Potassium 50 Mg Tablet 50 Mg PO HS Metoprolol Succinate 25 Mg Tab.er.24h 25 Mg PO HS Levothyroxine Sodium 100 Mcg Tablet 100 Mcg PO HS Instructions to patient/family Please see electronic discharge instructions given to patient. Clinical Quality Measures DVT/VTE Risk/Contraindication: Risk Factor Score Per Nursin RFS Level Per Nursing on Admit: 4+=Very High Problem Qualifiers (1) Pneumonia: Pneumonia type: due to unspecified organism Laterality: bilateral Lung location: lower lobe of lung Qualified Codes: J18.1 - Lobar pneumonia, unspecified organism (2) Diabetes mellitus: Diabetes mellitus type: type 2 Diabetes mellitus casino dealer insulin use: without casino dealer use Diabetes mellitus complication status: with kidney complications Diabetes mellitus complication detail: with chronic kidney disease Chronic kidney disease stage: stage 2 (mild) Qualified Codes: E11.22 - Type 2 diabetes mellitus with diabetic chronic kidney disease; N18.2 - Chronic kidney disease, stage 2 (mild) LEXIE CHASE DO Dec 18, 2017 10:34
--- NOTE | 2017-12-18 10:43 | Physical Therapy Daily Note ---
PT Daily Note-Current Subjective Patient is currently on RA and agrees to PT. Pain Numeric Pain Scale: 0-No Pain Location: No Pain Reported Mental Status Patient Orientation: Normal For Age Transfers Functional [place] Measure 0=Not Assessed/NA 4=Minimal Assistance 1=Total Assistance 5=Supervision or Setup 2=Maximal Assistance 6=Modified [place] 3=Moderate Assistance 7=Complete IndependenceIRFPAI Quality Coding Scale 6 Independent with activity with or without an assistive device 5 Patient requires set up or clean up by helper. Patient completes activity by themselves 4 Supervision or touching assist (CGA). [place] provide cues , steadying assist 3 The helper provides less than half the effort to complete the activity 2 The helper provides more than half the effort to complete the activity 1 Dependent. The helper does all the effort to complete an activity 7 Patient refused to complete or attempt activity 9 The patient did not perform the activity before the current illness or injury 88 Not attempted due to Medical conditions or safety concerns Transfers (B, C, W/C) (FIM): 5 Scootin Sit to/from Stand: 5 Weight Bearing Right Lower Extremity: Right Full Weight Bearing Left Lower Extremity: Left Full Weight Bearing Gait Training Gait (FIM): 2 Distance (FIM): 8=663-55 ft Distance: 125' Gait Level of Assist: 5 Gait Assistive Device: FWW much improved gait sequence and balance Exercises Seated Therapy Exercises: Ankle pumps, Long arc quads, Hip flexion Seated Reps: 25 Assessment Per RN, patient will dismiss to home with family on this date. Patient is currently at [facility] per his report. PT Care Home Goals Asphalt Patcher Goals PT Care Home Goals Time Frame: Jan 01, 2018 Transfers (B,C,W/C) (FIM): 6 Gait (FIM): 5 Gait distance (FIM): 3=150 ft Distance: 200' Gait Level of Assist: 5 Gait Assistive Device: FWW PT Plan Treatment/Plan Treatment Plan: Discontinue PT Treatment Plan: Bed Mobility, Education, Functional Activity Teri, Functional Strength, Gait, Safety, Therapeutic Exercise, Transfers Treatment Duration: Jan 01, 2018 Frequency: 6 times per week Estimated Hrs Per Day: .5 hour per day Patient and/or Family Agrees t: Yes Discharge Recommendations Therapy D/C Recommendations: Home w/ Family Support Time/GCodes Time In: 1000 Time Out: 1011 Total Billed Treatment Time: 11 Total Billed Treatment 1 visit FA 11 min RANDALL GAMEZ PT Dec 18, 2017 10:43
[2017-12-18] MEDS ORDERED: PNEUMOCOCCAL VACCINE 25 MCG/0.5 ML VIAL IM ONE (11:00)
--- NOTE | 2017-12-18 11:43 | Progress Note-Cardiology ---
Cardiology SOAP Progress Note Subjective: Feels better compared to time of admission. Less short of breath. Denies cp or palp or syncope Objective: I&O/Vital Signs 12/18/17 12/18/17 12/18/17 12/18/17 00:09 01:00 02:10 03:47 Temp 97.6 97.8 Pulse 81 79 87 Resp 19 18 B/P (MAP) 118/67 (84) 126/73 (90) Pulse Ox 98 99 96 O2 Delivery Nasal Cannula Nasal Cannula Nasal Cannula O2 Flow Rate 2.00 2.00 2.00 12/18/17 12/18/17 12/18/17 12/18/17 07:00 08:00 09:00 10:43 Temp 97.4 Pulse 95 75 Resp 22 B/P (MAP) 140/62 (88) Pulse Ox 100 96 O2 Delivery Nasal Cannula Nasal Cannula Room Air O2 Flow Rate 2.00 2.00 12/18/17 00:00 Intake Total 1862 ml Output Total 425 ml Balance 1437 ml Weight (Pounds): 194 Weight (Ounces): 2.0 Weight (Calculated Kilograms): 88.320192 Constitutional: No apparent distress; well-developed, well-nourished, other ( poor memory, slow to respond) Respiratory: chest expansion is symmetric, chest is bilaterally symmetric, other (rhonchi over large airways; diminshed air entry at the basees) Cardiovascular: regular rate-rhythm, S1 and S2, systolic murmur (2/6 LILY at card base) Gastrointestional: No tender; soft; No guarding, No rebound; audible bowel sounds Extremities: No clubbing, No cyanosis, No significant edema Neurologic/Psychiatric: other (poor memory; moves all limbs equally) Skin: No rash on exposed areas, No ulcerations on exposed areas Results/Procedures: Labs Laboratory Tests 12/17/17 16:05: Glucometer 153H 12/17/17 20:48: Glucometer 162H 12/18/17 03:05: White Blood Count 9.1, Red Blood Count 3.67L, Hemoglobin 11.2L, Hematocrit 34L, Mean Corpuscular Volume 92, Mean Corpuscular Hemoglobin 31, Mean Corpuscular Hemoglobin Concent 33, Red Cell Distribution Width 14.3, Platelet Count 269, Mean Platelet Volume 11.0H, Neutrophils (%) (Auto) 75, Lymphocytes (%) (Auto) 13 , Monocytes (%) (Auto) 10, Eosinophils (%) (Auto) 1, Basophils (%) (Auto) 0, Neutrophils # (Auto) 6.8, Lymphocytes # (Auto) 1.2, Monocytes # (Auto) 0.9, Eosinophils # (Auto) 0.1, Basophils # (Auto) 0.0, Sodium Level 140, Potassium Level 4.0, Chloride Level 114H, Carbon Dioxide Level 15L, Anion Gap 11, Blood Urea Nitrogen 21H, Creatinine 1.14, Estimat Glomerular Filtration Rate > 60, BUN /Creatinine Ratio 18, Glucose Level 143H, Calcium Level 8.3L 12/18/17 05:04: Glucometer 198H 12/18/17 11:24: Glucometer 210H Microbiology 12/16/17 Blood Culture - Preliminary, Resulted No growth 12/16/17 MRSA Screen - Final, Complete MRSA not isolated Laboratory Tests 12/16/17 12:00 12/17/17 03:40 12/18/17 03:05 A/P: Assessment: Septicemia, probably due to pneumonia, managed by Dr Clement Acute renal failure at presentation, improved with hydration Sinus node dysfunction: Sinus with first deg AV block alternating with atrial fib with a controlled vent response AV benita disease, as indicated by first deg AV block during sinus and spontaneously controlled vent response during atrial fib CAD. MPI of 03-25-16 is indicative of an inferolateral myocardial infarction with minimal hesham-infarct ischemia. Inferolateral akinesis. LVEF 62%. Due to progressive dyspnea, card cath has been discussed in the past, but he has not agreed Echocardiogram of 02-28-16 shows normal global LV systolic function with an ejection fraction of approx 60%. Mild concentric LVH. Mild aortic valve slcerosis and mitral annular calcification without evidence of valvular stenosis. 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 Given AV benita disease, monitor cardiac rate and rhythm closely. If bradycardic, then d/c beta-joyce altogether * Monitor labs * Keep on tele for now SAKSHI SANTOS MD [facility] Dec 18, 2017 11:43
--- NOTE | 2017-12-18 11:58 | D/C HH Face to Face Order ---
D/C Face to Face Orders Instructions for Patient Patient Instructions/FollowUp: Dr. Welsh as scheduled Dr. Torres as scheduled Physician to follow Patient: Dr. Torres Discharge Diet for Home: ADA Diet, Cardiac Diet Patient Problems: Paroxysmal atrial fibrillation Pneumonia Hypoxia Acute renal failure Diabetes mellitus Patient Data-Allergies,Ht & Wt Patient Allergies: Coded Allergies: No Known Drug Allergies (Unverified , 08/09/12) Height (Feet): 5 Height (Inches): 7.00 Weight (Pounds): 194 Weight (Ounces): 2.0 Home Health Need/Face to Face Date of Face to Face: Dec 18, 2017 Clinical Findings: Generalized weakness and fatigue, Muscle weakness, Shortness of breath, Unsteady gait I have seen Pt mips-ri-[id number]: Yes Discharged To: Home Diagnosis/Conditions: Paroxysmal atrial fibrillation Pneumonia Hypoxia Acute renal failure Diabetes mellitus Patient is Homebound due to: Reymundo fall risk due to instabilty, Shortness of breath/distress Homebound Status Due to the above stated illness, injury or surgical procedure (medical condition or diagnosis) and associated clinical findings, the patient is homebound because of his/her inability to leave home except with aid of a supportive device and/or person AND leaving the home requires a considerable and taxing effort or is medically contraindicated. Pt req the following assistanc: [facility] Nursing Orders Home Health Services Order: Nursing Services, Blending Supervisor-Evaluate & Treat, Physical Therapy-Evaluate & Treat Home Health Infusion Therapy Line Start Date: Dec 16, 2017 Line Start Time: 1200 Line Type: Saline Lock Site Location: Wrist Certify Stmt I certify that this patient is under my care and that I, a nurse practitioner or a physician; a assistant professor of theater working with me, had a face to face encounter that - meets the physician face to face encounter requirements with this patient as dated. LEXIE CHASE DO Dec 18, 2017 11:58
== END 2017-12-18 12:45 | disposition home health service (06) | DRG 871 ==
LOC: EDUNIT# 11:33 → ER 11:35 → ICU 13:00 → 4TH 12-17 14:30
PROVIDERS: ADMIT Internal Medicine; ATTEND Internal Medicine
DX: A41.9 Sepsis, unspecified organism (principal); J18.9 Pneumonia, unspecified organism; N17.9 Acute kidney failure, unspecified; E87.1 Hypo-osmolality and hyponatremia; R65.20 Severe sepsis without septic shock; I48.0 Paroxysmal atrial fibrillation; R33.9 Retention of urine, unspecified; N47.1 Phimosis; L98.9 Disorder of the skin and subcutaneous tissue, unspecified; E11.22 Type 2 diabetes mellitus with diabetic chronic kidney disease; N18.2 Chronic kidney disease, stage 2 (mild); I10 Essential (primary) hypertension; R09.02 Hypoxemia; I49.5 Sick sinus syndrome; I44.0 Atrioventricular block, first degree; I25.10 Atherosclerotic heart disease of native coronary artery without angina pectoris; E78.5 Hyperlipidemia, unspecified; E03.9 Hypothyroidism, unspecified; I87.2 Venous insufficiency (chronic) (peripheral); R32 Unspecified urinary incontinence; M54.9 Dorsalgia, unspecified; R53.81 Other malaise; I25.2 Old myocardial infarction; Z23 Encounter for immunization; Z79.84 Long term (current) use of oral hypoglycemic drugs
CPT/HCPCS: 36415; 71045; 71046; 80048; 80053; 82962; 83605; 83735; 84100; 84443; 85007; 85025; 85027; 87040; 87070; 87077; 87081; 87186; 87205; 90471; 90732; 93005; 93306; 94640; 94760; 94761; 96374; 96375

== ENCOUNTER → 2018-01-13 | Outpatient (CLI) | payer MEDICARE ==
[~2018-01-13] MED LIST changes: +APIX5TAB PO; +ASCO10006 PO; +ASCO100099 PO; +ASPI-983 PO; +CEFD300C3 PO; +DEXT237L PO; +FA/M1TAB29 PO; +GUAI120S PO; +LEVO100T7 PO; +LOSA50TA36 PO; +METO-387 PO; +PRAV20TA3 PO
[2018-01-13 15:48] LABS: BILIRUBIN,URINE NEGATIVE (NEGATIVE); CLARITY,URINE VERY CLOUDY; COLOR,URINE YELLOW; GLUCOSE, URINE (UA) NEGATIVE (NEGATIVE); KETONES,URINE NEGATIVE (NEGATIVE); LEUKOCYTE ESTERASE ,URINE 3+ (NEGATIVE); NITRITE,URINE NEGATIVE (NEGATIVE); PH,URINE 6 (5-9); PROTEIN,URINE 3+ (NEGATIVE); UROBILINOGEN,URINE NORMAL (NORMAL)
[2018-01-13 15:56] LABS: BACTERIA,URINE FEW /HPF; RBC,URINE 25-50 /HPF; WBC,URINE TNTC /HPF
== END ==
LOC: HH 08:00
PROVIDERS: ATTEND Family Medicine
DX: R30.9 Painful micturition, unspecified (principal); R82.99 Other abnormal findings in urine
CPT/HCPCS: 81000; 87077; 87088; 87186

== ENCOUNTER → 2018-01-27 | Outpatient (CLI) | payer MEDICARE ==
[2018-01-27 15:38] LABS: BILIRUBIN,URINE NEGATIVE (NEGATIVE); CLARITY,URINE SLIGHTLY CLOUDY; COLOR,URINE YELLOW; GLUCOSE, URINE (UA) NEGATIVE (NEGATIVE); KETONES,URINE NEGATIVE (NEGATIVE); LEUKOCYTE ESTERASE ,URINE 3+ (NEGATIVE); NITRITE,URINE POSITIVE (NEGATIVE); PH,URINE 7 (5-9); PROTEIN,URINE NEGATIVE (NEGATIVE); UROBILINOGEN,URINE NORMAL (NORMAL)
[2018-01-27 15:46] LABS: BACTERIA,URINE MODERATE /HPF; RBC,URINE 0-2 /HPF; WBC,URINE >100 /HPF
== END ==
LOC: HH 08:00
PROVIDERS: ATTEND Family Medicine
DX: N39.0 Urinary tract infection, site not specified (principal)
CPT/HCPCS: 81000; 87077; 87088; 87186

== ENCOUNTER 2019-04-20 13:25 | Outpatient (CLI) | payer MEDICARE ==
[~2019-04-20] VITALS: Ht 170.2 cm; Wt 78.9 kg
[~2019-04-20 13:25] MED LIST changes: -LOSA50TA36 PO; +LOSA50TA63 PO
[2019-04-20 13:42] VITALS: BP 125/77
[2019-04-20] MEDS ORDERED: ASPI325T32 PO (13:45)
== END 2019-04-20 14:00 | disposition home or self-care (01) ==
LOC: PREOP 13:25
PROVIDERS: ATTEND Urology
DX: Z01.818 Encounter for other preprocedural examination (principal)
CPT/HCPCS: 87081

== ENCOUNTER 2019-04-26 06:17 | Day surgery (SDC) | payer MEDICARE ==
[~2019-04-26] VITALS: Ht 170.2 cm; Wt 78.9 kg
[2019-04-26] VITALS (11 sets, daily range): BP systolic 134–165; BP diastolic 82–102
[~2019-04-26 06:17] MED LIST changes: +ASPI325T32 PO
[2019-04-26] MEDS ORDERED: LACTATED RINGERS 1,000 ML IV PRN (06:25)
[2019-04-26] MEDS ORDERED: ceFAZolin INJECTION 1,000 MG in WATER (STERILE) FOR INJECTION 10 ML IV ONE (06:30)
[2019-04-26] MEDS ORDERED: NEOSPORIN + PAIN RELIEF CREAM 15 GM ONE (06:42)
[2019-04-26] MEDS ORDERED: meTOprolol 5 MG/5 ML (LOPRESSOR) VIAL ONE (06:54)
[2019-04-26] MEDS ORDERED: meTOprolol 5 MG/5 ML (LOPRESSOR) VIAL IV ONE (07:15)
--- NOTE | 2019-04-26 07:18 | Progress Note-Pre Operative ---
Pre-Operative Progress Note H&P Reviewed The H&P was reviewed, patient examined and no changes noted. Date Seen by Provider: Apr 26, 2019 Time Seen by Provider: 07:17 Date H&P Reviewed: Apr 26, 2019 Time H&P Reviewed: 07:17 Pre-Operative Diagnosis: SEVERE PHIMOSIS, BPH AND POSSIBLE STRICTURE MARISSA BARCENAS MD Apr 26, 2019 07:18
--- NOTE | 2019-04-26 07:24 | Progress Note-Post Operative ---
Post-Operative Progess Note Surgeon (s)/Bulk Clerk (s) Surgeon MARISSA BARCENAS MD Bulk Clerk: NONE Pre-Operative Diagnosis SEVERE PHIMOSIS, BPH AND POSSIBLE STRICTURE Post-Operative Diagnosis SAME Procedure & Operative Findings Date of Procedure 04/26/19 Procedure Performed/Findings DORSAL SLIT AND CYSTOSCOPY Anesthesia Type GENERAL Estimated Blood Loss Estimated blood loss (mL): NONE Specimens/Packing Specimens Removed NONE Packing: NONE MARISSA BARCENAS MD Apr 26, 2019 07:24
[2019-04-26] MEDS ORDERED: fentaNYL INJECTION 100 MCG/2 ML AMP ONE (08:28)
[2019-04-26] MEDS ORDERED: ONDANSETRON 4 MG/2 ML (SDV) Z0FRAN ONE (09:25)
[2019-04-26] MEDS ORDERED: SEVOFLURANE (ULTANE) 15 ML INHAL SOLN ONE (09:25)
[2019-04-26] MEDS ORDERED: LIDOCAINE PF 2% 5 ML (XYLOCAINE) VIAL ONE (09:25)
[2019-04-26] MEDS ORDERED: proPOfol 200 MG/20 ML (DIPRIVAN) VIAL IV ONE (09:25)
--- NOTE | 2019-04-26 09:34 | Discharge Inst-Urology ---
Discharge Inst-Urology Reconcile Patient Problems Problems Reviewed?: Yes Discharge Medications New, Converted, or Re-newed RX: RX on Chart Patient Instructions/Follow Up Plan Please make appointment to been seen in office in 2 weeks. Stay off ASA Ice to penis in RR and at home for 6 hours and then PRN Tomorrow, start showers, no bath Keep bowels soft and moving Neosporin+pain ointment to incision area and meatus BID for 7 days Increase oral fluids for 48 hours and then as needed. Diet and Activity as tolerated. If questions or concerns contact your physician Or seek help at emergency department. MARISSA BARCENAS MD Apr 26, 2019 07:25
[2019-04-26] MEDS ORDERED: ONDANSETRON 4 MG/2 ML (SDV) Z0FRAN IVP PRN (09:45)
[2019-04-26] MEDS ORDERED: fentaNYL INJECTION 100 MCG/2 ML AMP IVP ONE (09:45)
[2019-04-26] MEDS ORDERED: morphine INJ 10 MG/ML 1ML (SYR OR VIAL) IVP ONE (09:45)
--- NOTE | 2019-04-26 12:43 | OPERATIVE REPORT ---
DATE OF SERVICE: 04/26/2019 PREOPERATIVE DIAGNOSIS: Severe phimosis with possible stricture. POSTOPERATIVE DIAGNOSIS: Severe phimosis with possible stricture. OPERATION PERFORMED: Dorsal slit and cystoscopy. SURGEON: Vu Barcenas MD ANESTHESIA: General. COMPLICATIONS: None. DESCRIPTION OF PROCEDURE: Under satisfactory general anesthesia, the patient in supine position, genitalia were prepped and draped in the usual sterile fashion. There was severe phimosis, pinpoint opening into the penis which was retracted and went ahead and performed a dorsal slit. This was sutured transversely with a 3-0 chromic catgut sutures. A circumcision would not be feasible because of extensive adhesions and scar. Then, attention was directed to perform a flexible cystoscopy. The meatus was pretty small. I went ahead and dilated to accommodate easily the flexible cystoscope. Anterior urethra was normal, no stricture. The prostate was small nonobstructing. Bladder neck was open. Bladder was entered. There were mild trabeculations, no bladder tumor, cystitis or carcinoma in situ areas. Ureteric orifices were with clear effluxes. Cystoscopy was confirmed in an antegrade fashion and the cystoscope was removed. The patient tolerated the procedure and anesthesia well and was sent to recovery room in stable condition after applying Neosporin Plus Pain ointment with a light dressing. Instructions were given to the family. Job ID: [id number] DocumentID: [id number] Dictated Date: 04/26/2019 09:37:11 Shot Dropper Date: 04/26/2019 12:42:49 Dictated By: VU BARCENAS MD
--- NOTE | 2019-04-26 13:34 | Anesthesia-General Post-Op ---
General Patient Condition Mental Status/LOC: Same as Preop Cardiovascular: Satisfactory Nausea/Vomiting: Absent Respiratory: Satisfactory Pain: Controlled Complications: Absent Post Op Complications Complications None Follow Up Care/Instructions Patient Instructions None needed. Anesthesia/Patient Condition Patient Condition Patient is doing well, no complaints, stable vital signs, no apparent adverse anesthesia problems. No complications reported per nursing. D/C home per [facility] Criteria: Yes BRAXTON JOLLEY CRNA Apr 26, 2019 13:33
== END 2019-04-26 11:45 | disposition home or self-care (01) ==
LOC: SDC 06:17
PROVIDERS: ATTEND Urology
DX: N47.1 Phimosis (principal); I10 Essential (primary) hypertension; E11.9 Type 2 diabetes mellitus without complications; E78.00 Pure hypercholesterolemia, unspecified; E03.9 Hypothyroidism, unspecified; E78.5 Hyperlipidemia, unspecified; I25.2 Old myocardial infarction; Z79.82 Long term (current) use of aspirin; Z79.84 Long term (current) use of oral hypoglycemic drugs; Z79.899 Other long term (current) drug therapy
CPT/HCPCS: 82962

== ENCOUNTER → 2019-10-26 | Outpatient (CLI) | payer MEDICARE ==
[~2019-10-26] MED LIST changes: +ASPI-999 PO; +CLOP75TA69 PO; +LOSA25TA41 PO; +METO-352 PO; -METO-387 PO; +MTP25TSR PO
[2019-10-26 09:37] LABS: BASOPHILS % (AUTO) 0 % (0-10); EOSINOPHILS % (AUTO) 0 % (0-10); HEMATOCRIT 37 % (40-54); HEMOGLOBIN 12.2 G/DL (13.3-17.7); LYMPHOCYTES # (AUTO) 1.1 X 10^3 (1.0-4.0); LYMPHOCYTES % (AUTO) 19 % (12-44); MEAN CORPUSCULAR HEMOGLOBIN 30 PG (25-34); MEAN CORPUSCULAR HGB CONC 33 G/DL (32-36); MEAN CORPUSCULAR VOLUME 91 FL (80-99); MEAN PLATELET VOLUME 10.1 FL (7.4-10.4); MONOCYTES # (AUTO) 0.8 X 10^3 (0.0-1.0); MONOCYTES % (AUTO) 14 % (0-12); NEUTROPHILS # (AUTO) 3.8 X 10^3 (1.8-7.8); NEUTROPHILS % (AUTO) 66 % (42-75); PLATELET COUNT 196 10^3/uL (130-400); RED CELL DISTRIBUTION WIDTH 14.4 % (10.0-14.5); WHITE BLOOD COUNT 5.8 10^3/uL (4.3-11.0)
[2019-10-26 10:01] LABS: BILIRUBIN,TOTAL 0.4 MG/DL (0.1-1.0); CALCIUM 9.4 MG/DL (8.5-10.1); CREATININE SERUM 1.48 MG/DL (0.60-1.30); POTASSIUM 4.6 MMOL/L (3.6-5.0); TOTAL PROTEIN 7.2 GM/DL (6.4-8.2)
== END ==
LOC: LAB 09:07
PROVIDERS: ATTEND Family Medicine
DX: E78.5 Hyperlipidemia, unspecified (principal); R53.83 Other fatigue; E11.65 Type 2 diabetes mellitus with hyperglycemia
CPT/HCPCS: 36415; 80053; 80061; 83036; 84443; 85025

== ENCOUNTER 2020-02-01 08:54 | Emergency (ER) | payer MEDICARE ==
[~2020-02-01] VITALS: Ht 170.3 cm; Wt 57.2 kg
[~2020-02-01 08:54] MED LIST changes: +Bethanechol Chl PO; +CLOP75TA28 PO; +FLUC100T PO; +METO50TA7 PO; +OSEL30CA PO; +TR1C15 TOP; +ZINC28PA TOP
--- OUTSIDE RECORDS SUMMARY | 2020-02-01 09:32 | XMS REPORT | CCD ---
Author Author Edward Antunez D.O. Organization [facility] DO [facility] Address [address] [place] [address] Phone Care Team Providers Care Language Interpreter Name Role Phone PP Unavailable CCM Unavailable Summary Purpose Interface Exchange Insurance Providers Payer name Policy type / Coverage type Covered alliance party ID Effective Begin Date Effective End Date WPS MEDIC[place] B [place] Medicare Part B [id number] Unknown Unknown Family History Family History data not found Social History Social History Element Codes Description Effective Dates Marital status Unknown 10/25/[address]: 113945532 Never drinks alcohol 2019 Allergies, Adverse Reactions, Alerts Substance Reaction Codes Entered Date Inactivated Date Status * NO KNOWN FOOD ALLERGIES Unknown 10/25/2019 No Inactiv e Date Active * NO KNOWN DRUG ALLERGIES Unknown 10/25/2019 No Inactiv e Date Active * NO KNOWN ENVIRONMENTAL ALLERGIES Unknown 10/25/2019 N o Inactive Date Active Problems Condition Codes Effective Dates Condition Status Essential hypertension ICD-9: 401.9 ICD-10: I10 10/25/2019 Active Muscle weakness ICD-9: 728.87 ICD-10: M62.81 11/16/2019 Active Pressure ulcer, buttock ICD-9: 707.05 ICD-10: L89.309 10/25/2019 Active Chronic congestive heart failure ICD-9: 428.0 ICD-10: I50.9 11/16/2019 Active Diabetic neuropathy ICD-9: 250.60 ICD-10: E11.40 11/16/2019 Active Orthopnea ICD-9: 786.02 ICD-10: R06.01 11/16/2019 Active Influenza A ICD-9: 487.1 ICD-10: J10.1 11/01/2019 Active Hypertension Unknown 10/25/2019 Active Dermatitis ICD-9: 692.9 ICD-10: L30.9 10/25/2019 Active DM w/o complication type II ICD-9: 250.00 ICD-10: E11.9 10/25/2019 Active Medications Medication Codes Instructions Start Date Stop Date Status Fill Instructions bethanechol chloride 25 mg tablet RxNorm: 187126 1 Tablet(s) Or al AC & HS 11/24/2019 05/22/2020 Active fluconazole 100 mg tablet RxNorm: 673549 1 Tablet(s) Oral QD 201912/07/2019 Inactive fluconazole 100 mg tablet RxNorm: 362035 1 Tablet(s) Oral QD 201911/23/2019 Inactive Tylenol Arthritis Pain 650 mg tablet,extended release RxNorm : 2100761 Tablet(s) Oral as needed 10/25/2019 No Stop Date Active aspirin 325 mg tablet RxNorm: 712365 1 Tablet(s) Oral QD 10/25/2019 No Stop Date Active pravastatin 20 mg tablet RxNorm: 067407 1 Tablet(s) Oral QD 020 10/25/2019 Inactive metoprolol succinate ER 25 mg tablet,extended release 24 hr RxNorm: 180417 1 Tablet(s) Oral QD 10/25/2019 No Stop Date Active glipizide 10 mg tablet RxNorm: 995525 1 Tablet(s) Oral QD 0 No Stop Date Active multivitamin tablet RxNorm: 1 Tablet(s) Oral QD 10/25/2019 No Stop D ate Active losartan 50 mg tablet RxNorm: 681031 1 Tablet(s) Oral QD 10/25/2019 No Stop Date Active levothyroxine 100 mcg tablet RxNorm: 618023 1 Tablet(s) Oral QD No Stop Date Active Bactrim DS 800 mg-160 mg tablet RxNorm: 746320 1 Tablet(s) Oral two times a day 10/25/2019 10/25/2019 Inactive prednisone 20 mg tablet RxNorm: 805674 1 Tablet(s) Oral two erica es a day 10/25/2019 11/01/2019 Inactive pravastatin 20 mg tablet RxNorm: 599575 1 Tablet(s) Oral QD 020 10/24/2019 Inactive Pepto-Bismol oral RxNorm: 46704 oral No Start Date Acti ve Medication Administered No Medication Administered data Immunizations No Immunization data Results No Results data Procedures Procedure Codes Date INFLUENZA ASSAY W/OPTIC CPT-4: 81319 11/01/2019 Vital Signs Date Vital 12/20/2019 Blood Pressure 1: 136/82 Code: 8480-6 Heart Rate 1: 72 bpm Respiratory Rate: 20 bpm SpO2: 97% Temperature: 36.6 (C) / 97.8 (F) 11/16/2019 Blood Pressure 1: 148/72 Code: 8480-6 Heart Rate 1: 71 bpm Respiratory Rate: 20 bpm SpO2: 99% Temperature: 36.8 (C) / 98.3 (F) 11/01/2019 Blood Pressure 1: 126/74 Code: 8480-6 Heart Rate 1: 76 bpm Height: Respiratory Rate: 28 bpm SpO2: 95% Temperature: 38.6 (C) / 101.4 (F) W eight: 10/25/2019 Blood Pressure 1: 154/92 Code: 8480-6 Heart Rate 1: 92 bpm Respiratory Rate: 20 bpm SpO2: 97% Temperature: 37.1 (C) / 98.8 (F) We ight: 176 lbs Functional Status No Functional Status data Reason For Visit Reason For Visit Effective Dates Notes follow up 12/20/2019 muscle weakness 11/16/2019 follow up 11/01/2019 Hospital fwup ~generic 10/25/2019 New Patient---establ ishing visit Encounters Encounter Performer Location Codes Date (29480) OFFICE/OUTPATIENT VISIT EST Diagnosis: Essential hypertension[ICD10: I10] Diagnosis: Muscle weakness[ICD10: M62.81] Diagnosis: Pressure ulcer, buttock[ICD10: L89.309] Gene ANTUNEZ [employer] CPT-4: 54659 12/20/2019 ([id number]) OFFICE/OUTPATIENT VISIT EST Diagnosis: Diabetic neuropathy[ICD10: E11.40] Diagnosis: Pressure ulcer, buttock[ICD10: L89.309] Diagnosis: Muscle weakness[ICD10: M62.81] Diagnosis: Orthopnea[ICD10: R06.01] Diagnosis: Chronic congestive heart failure[ICD10: I50.9] Gene ANTUNEZ DO [employer] CPT-4: 03459 11/16/2019 ([id number]) NO CHARGE Diagnosis: Influenza A[ICD10: J10.1] Gene GRIMES DO [employer] CPT-4: 32249 11/01/2019 OFFICE/OUTPATIENT VISIT NEW Diagnosis: Essential hypertension[ICD10: I10] 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] Diagnosis: Dermatitis[ICD10: L30.9] Diagnosis: Pressure ulcer, buttock[ICD10: L89.309] Gene ANTUNEZ DO [employer] CPT-4: 13836 10/25/2019 Plan of Care Planned Activity Notes Codes Status Date Visit Diagnosis Plan: Muscle weakness Discussion: Charlene mejia last PT session today ICD-9 : 728.87 ICD-10 : M62.81 12/20/2019 Visit Diagnosis Plan: Pressure ulcer, buttock Discussi on: Home Health nursing coming out routinely and has changed butt paste Follow Up: As needed ICD-9 : 707.05 ICD-10 : L89.309 12/20/2019 Visit Diagnosis Plan: Essential hypertension Discussio n: Stable Check lab and fwup in 2mos Follow Up: 2 months ICD-9 : 401.9 ICD-10 : I10 12/20/2019 Visit Diagnosis Plan: Pressure ulcer, buttock Discussi on: Add diflucan Need to offload buttocks so need to sleep in bed so will proceed with hospital bed Doing [employer] Butt Paste with ABDs ICD-9 : 707.05 ICD-10 : L89.309 11/16/2019 Visit Diagnosis Plan: Muscle weakness Discussion: In S [facility] doing PT/OT and will go home next week Follow Up: 1 months ICD-9 : 728.87 ICD-10 : M62.81 11/16/2019 Visit Diagnosis Plan: Diabetic neuropathy Discussion: Referral to podiatry for diabetic foot care and shoes ICD-9 : 250.60 ICD-10 : E11.40 11/16/2019 Visit Diagnosis Plan: Orthopnea Discussion: Hospital b ed with elevation of head to 30 degrees ICD-9 : 786.02 ICD-10 : R06.01 11/16/2019 Appointment: [facility] [address] [facility] [facility] Follow Up 11/16/2019 Care Plan: Referral Order SNOMED-CT : 30 6650008 Pending 11/16/2019 Visit Diagnosis Plan: Influenza A Discussion: Direct a dmit to hospital ICD-9 : 487.1 ICD-10 : J10.1 11/01/2019 Appointment: Gene Antunez WPtel: [address] [place] [address] [place] FOLLOW UP 11/01/2019 Visit Diagnosis Plan: DM w/o complication type II Disc ussion: Update fasting labs in morning--CMP, HbA1C Accuchecks daily States that has not had lab for quite some time ICD-9 : 250.00 ICD-10 : E11.9 10/25/2019 Visit Diagnosis Plan: Essential hypertension Discussio n: Sees cardiology tomorrow ICD-9 : 401.9 ICD-10 : I10 10/25/2019 Visit Diagnosis Plan: Dermatitis Discussion: Prednison e and recheck 1 week Warned of prednisone possibly elevating BS ICD-9 : 692.9 ICD-10 : L30.9 10/25/2019 Visit Diagnosis Plan: Pressure ulcer, buttock Discussi on: Bactrim and offload buttock--sleep in bed Recheck 1 week May need homehealth or wound care ICD-9 : 707.05 ICD-10 : L89.309 10/25/2019 Appointment: Gene Antunez WPtel: [address] [place] [address] [place] NEW PATIENT 10/25/2019 Patient Education: prednisone- [employer] Coupon [id number] [email or web address]/samplemd/resources/getResource/61/[email or web address] Completed 10/25/2019 Referral: Etelvina Marquez WPtel: [address] [place] [address] [place] Referral Appointment Requested Instructions No Instructions Medical Equipment No Medical Equipment data Health Concerns Section Health Concerns data not found Goals Section Goals data not found Interventions Section Interventions data not found Health Status Evaluations/Outcomes Section Health Status Evaluations/Outcomes data not found Advance Directives No Advance Directive data
--- OUTSIDE RECORDS SUMMARY | 2020-02-01 09:32 | XMS REPORT | CCD ---
Author Author Edward Antunez D.O. Organization [facility]ENE ANT[facility] DO [facility] Address [address] [place] [address] Phone Care Team Providers Care Audience Development Manager Name Role Phone PP Unavailable CCM Unavailable Summary Purpose Interface Exchange Insurance Providers Payer name Policy type / Coverage type Covered constitution party ID Effective Begin Date Effective End Date WPS MEDIC[place] B [place] Medicare Part B [id number] Unknown Unknown Family History Family History data not found Social History Social History Element Codes Description Effective Dates Marital status Unknown 10/25/[address]: 308908671 Never drinks alcohol 2019 Allergies, Adverse Reactions, Alerts Substance Reaction Codes Entered Date Inactivated Date Status * NO KNOWN FOOD ALLERGIES Unknown 10/25/2019 No Inactiv e Date Active * NO KNOWN DRUG ALLERGIES Unknown 10/25/2019 No Inactiv e Date Active * NO KNOWN ENVIRONMENTAL ALLERGIES Unknown 10/25/2019 N o Inactive Date Active Problems Condition Codes Effective Dates Condition Status Chronic congestive heart failure ICD-9: 428.0 ICD-10: I50.9 11/16/2019 Active Diabetic neuropathy ICD-9: 250.60 ICD-10: E11.40 11/16/2019 Active Muscle weakness ICD-9: 728.87 ICD-10: M62.81 11/16/2019 Active Orthopnea ICD-9: 786.02 ICD-10: R06.01 11/16/2019 Active Pressure ulcer, buttock ICD-9: 707.05 ICD-10: L89.309 10/25/2019 Active Influenza A ICD-9: 487.1 ICD-10: J10.1 11/01/2019 Active Hypertension Unknown 10/25/2019 Active Dermatitis ICD-9: 692.9 ICD-10: L30.9 10/25/2019 Active DM w/o complication type II ICD-9: 250.00 ICD-10: E11.9 10/25/2019 Active Essential hypertension ICD-9: 401.9 ICD-10: I10 10/25/2019 Active Medications Medication Codes Instructions Start Date Stop Date Status Fill Instructions Tylenol Arthritis Pain 650 mg tablet,extended release RxNorm : 5349281 Tablet(s) Oral as needed 10/25/2019 No Stop Date Active aspirin 325 mg tablet RxNorm: 977514 1 Tablet(s) Oral QD 10/25/2019 No Stop Date Active pravastatin 20 mg tablet RxNorm: 815973 1 Tablet(s) Oral QD 020 10/25/2019 Inactive metoprolol succinate ER 25 mg tablet,extended release 24 hr RxNorm: 620447 1 Tablet(s) Oral QD 10/25/2019 No Stop Date Active glipizide 10 mg tablet RxNorm: 257470 1 Tablet(s) Oral QD 0 No Stop Date Active multivitamin tablet RxNorm: 1 Tablet(s) Oral QD 10/25/2019 No Stop D ate Active losartan 50 mg tablet RxNorm: 125304 1 Tablet(s) Oral QD 10/25/2019 No Stop Date Active levothyroxine 100 mcg tablet RxNorm: 174504 1 Tablet(s) Oral QD No Stop Date Active Bactrim DS 800 mg-160 mg tablet RxNorm: 518055 1 Tablet(s) Oral two times a day 10/25/2019 10/25/2019 Inactive prednisone 20 mg tablet RxNorm: 625959 1 Tablet(s) Oral two erica es a day 10/25/2019 11/01/2019 Inactive pravastatin 20 mg tablet RxNorm: 797732 1 Tablet(s) Oral QD 020 10/24/2019 Inactive Pepto-Bismol oral RxNorm: 76708 oral No Start Date Acti ve Medication Administered No Medication Administered data Immunizations No Immunization data Results No Results data Procedures Procedure Codes Date INFLUENZA ASSAY W/OPTIC CPT-4: 29719 11/01/2019 Vital Signs Date Vital 11/16/2019 Blood Pressure 1: 148/72 Code: 8480-6 [...] Visit Reason For Visit Effective Dates Notes muscle weakness 11/16/2019 follow up 11/01/2019 Hospital fwup ~generic 10/25/2019 New Patient---establ ishing visit Encounters Encounter Performer Location Codes Date () OFFICE/OUTPATIENT VISIT EST Diagnosis: Diabetic neuropathy[ICD10: E11.40] Diagnosis: Pressure ulcer, buttock[ICD10: L89.309] Diagnosis: Muscle weakness[ICD10: M62.81] Diagnosis: Orthopnea[ICD10: R06.01] Diagnosis: Chronic congestive heart failure[ICD10: I50.9] Gene ANTUNEZ [employer] CPT-4: 09819 11/16/2019 ([id number]) NO CHARGE Diagnosis: Influenza A[ICD10: J10.1] Gene GRIMES [employer] CPT-4: 71482 11/01/2019 OFFICE/OUTPATIENT VISIT NEW Diagnosis: Essential hypertension[ICD10: I10] 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] Diagnosis: Dermatitis[ICD10: L30.9] Diagnosis: Pressure ulcer, buttock[ICD10: L89.309] Gene ANTUNEZ [employer] CPT-4: 88552 10/25/2019 Plan of Care Planned Activity Notes Codes Status Date Visit Diagnosis Plan: Pressure ulcer, buttock Discussi [...] : R06.01 11/16/2019 Appointment: Gene Antunez WPtel: [address] [place], [place] [id number] Hospital Follow Up 11/16/2019 Care Plan: Referral Order SNOMED-CT : 30 6303119 Pending 11/16/2019 Visit Diagnosis Plan: Influenza A Discussion: Direct a dmit to hospital ICD-9 : 487.1 ICD-10 : J10.1 11/01/2019 Appointment: Gene Antunez WPtel: [address] [place], [place] [phone] FOLLOW UP 11/01/2019 Visit Diagnosis Plan: DM w/o complication type II Disc ussion: Update fasting labs in morning--CMP, HbA1C Accuchecks daily States that has not had lab for quite some time ICD-9 : 250.00 ICD-10 : E11.9 10/25/2019 Visit Diagnosis Plan: Dermatitis Discussion: Prednison e and recheck 1 week Warned of prednisone possibly elevating BS ICD-9 : 692.9 ICD-10 : L30.9 10/25/2019 Visit Diagnosis Plan: Pressure ulcer, buttock Discussi on: Bactrim and offload buttock--sleep in bed Recheck 1 week May need homehealth or wound care ICD-9 : 707.05 ICD-10 : L89.309 10/25/2019 Visit Diagnosis Plan: Essential hypertension Discussio n: Sees cardiology tomorrow ICD-9 : 401.9 ICD-10 : I10 10/25/2019 Appointment: Gene Antunez WPtel: [address] [place], [place] [id number] NEW PATIENT 10/25/2019 Patient Education: prednisone- Opt[employer]RX Coupon [phone] https://[email or web address]/samplemd/resources/getResource/61/[email or web address] Completed 10/25/2019 Referral: Etelvina Marquez WPtel: [address] [place], [place] [id number] Referral Appointment Requested Instructions No Instructions Medical Equipment No Medical Equipment data Health Concerns Section Health Concerns data not found Goals Section Goals data not found Interventions Section Interventions data not found Health Status Evaluations/Outcomes Section Health Status Evaluations/Outcomes data not found Advance Directives No Advance Directive data
--- OUTSIDE RECORDS SUMMARY | 2020-02-01 09:32 | XMS REPORT | CCD ---
Author Author Edward Antunez D.O. Organization [facility] DO [facility] Address [address] [place] [address] Phone Care Team Providers Care Handle And Vent Machine Operator Name Role Phone PP Unavailable CCM Unavailable Summary Purpose Interface Exchange Insurance Providers Payer name Policy type / Coverage type Covered libertarian ID Effective Begin Date Effective End Date WPS MEDICARE [place] B [place] Medicare Part B [id number] Unknown Unknown Family History Family History data not found Social History Social History Element Codes Description Effective Dates Marital status Unknown 10/25/[address]: 488714352 Never drinks alcohol 2019 Allergies, Adverse Reactions, [...] Instructions bethanechol chloride 25 mg tablet RxNorm: 409509 1 Tablet(s) Or al AC & HS 11/24/2019 05/22/2020 Active fluconazole 100 mg tablet RxNorm: 494308 1 Tablet(s) Oral QD 201912/07/2019 Inactive fluconazole 100 mg tablet RxNorm: 874430 1 Tablet(s) Oral QD 201911/23/2019 Inactive Tylenol Arthritis Pain 650 mg tablet,extended release RxNorm : 2937249 Tablet(s) Oral as needed 10/25/2019 No Stop Date Active aspirin 325 mg tablet RxNorm: 757264 1 Tablet(s) Oral QD 10/25/2019 No Stop Date Active pravastatin 20 mg tablet RxNorm: 817498 1 Tablet(s) Oral QD 020 10/25/2019 Inactive metoprolol succinate ER 25 mg tablet,extended release 24 hr RxNorm: 921080 1 Tablet(s) Oral QD 10/25/2019 No Stop Date Active glipizide 10 mg tablet RxNorm: 066427 1 Tablet(s) Oral QD 0 No Stop Date Active multivitamin tablet RxNorm: 1 Tablet(s) Oral QD 10/25/2019 No Stop D ate Active losartan 50 mg tablet RxNorm: 882676 1 Tablet(s) Oral QD 10/25/2019 No Stop Date Active levothyroxine 100 mcg tablet RxNorm: 414457 1 Tablet(s) Oral QD No Stop Date Active Bactrim DS 800 mg-160 mg tablet RxNorm: 754325 1 Tablet(s) Oral two times a day 10/25/2019 10/25/2019 Inactive prednisone 20 mg tablet RxNorm: 533607 1 Tablet(s) Oral two erica es a day 10/25/2019 11/01/2019 Inactive pravastatin 20 mg tablet RxNorm: 041196 1 Tablet(s) Oral QD 020 10/24/2019 Inactive Pepto-Bismol oral RxNorm: 45316 oral No Start Date Acti ve Medication Administered No Medication Administered data Immunizations No Immunization data Results No Results data Procedures Procedure Codes Date INFLUENZA ASSAY W/OPTIC CPT-4: 19930 11/01/2019 Vital Signs Date Vital 12/20/2019 Blood [...] visit Encounters Encounter Performer Location Codes Date (55046) OFFICE/OUTPATIENT VISIT EST Diagnosis: Essential hypertension[ICD10: I10] Diagnosis: Muscle weakness[ICD10: M62.81] Diagnosis: Pressure ulcer, buttock[ICD10: L89.309] Gene ANTUNEZ [employer] CPT-4: 28862 12/20/2019 (37843) OFFICE/OUTPATIENT VISIT EST Diagnosis: Diabetic neuropathy[ICD10: E11.40] Diagnosis: Pressure ulcer, buttock[ICD10: L89.309] Diagnosis: Muscle weakness[ICD10: M62.81] Diagnosis: Orthopnea[ICD10: R06.01] Diagnosis: Chronic congestive heart failure[ICD10: I50.9] Gene ANTUNEZ DO [employer] CPT-4: 47028 11/16/2019 (10448) NO CHARGE Diagnosis: Influenza A[ICD10: J10.1] Gene GRIMES DO [employer] CPT-4: 63019 11/01/2019 OFFICE/OUTPATIENT VISIT NEW Diagnosis: Essential hypertension[ICD10: I10] 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] Diagnosis: Dermatitis[ICD10: L30.9] Diagnosis: Pressure ulcer, buttock[ICD10: L89.309] Gene ANTUNEZ DO [employer] CPT-4: 10979 10/25/2019 Plan of Care Planned Activity Notes [...] R06.01 11/16/2019 Appointment: [facility] [address] [facility] [facility] Follow Up 11/16/2019 Care Plan: Referral Order SNOMED-CT : 30 [id number] Pending 11/16/2019 Visit Diagnosis Plan: Influenza A Discussion: Direct a dmit to hospital ICD-9 : 487.1 ICD-10 : J10.1 11/01/2019 Appointment: Gene Antunez WPtel: [address] [place] [address] [place] FOLLOW UP 11/01/2019 Visit Diagnosis Plan: [...] : L89.309 10/25/2019 Appointment: Gene Antunez WPtel: [address] [place] [address] [place] NEW PATIENT 10/25/2019 Patient Education: prednisone- [employer] Coupon [phone] https://[email or web address]/samplemd/resources/getResource/61/[email or web address] Completed 10/25/2019 Referral: Etelvina Marquez WPtel: [address] [place] [address] [place] Referral Appointment Requested Instructions No Instructions Medical Equipment No Medical Equipment data Health Concerns Section Health Concerns data not found Goals Section Goals data not found Interventions Section Interventions data not found Health Status Evaluations/Outcomes Section Health Status Evaluations/Outcomes data not found Advance Directives No Advance Directive data
--- OUTSIDE RECORDS SUMMARY | 2020-02-01 09:32 | XMS REPORT | CCD ---
Author Author Edward Antunez D.O. Organization [facility]ENE ANTUNEZ DO [facility] Address [address] [place] [address] Phone Care Team Providers Care Director Oracle Database Name Role Phone PP Unavailable CCM Unavailable Summary Purpose Interface Exchange Insurance Providers Payer name Policy type / Coverage type Covered democrat ID Effective Begin Date Effective End Date WPS MEDIC[place] B [place] Medicare Part B [id number] Unknown Unknown Family History Family History data not found Social History Social History Element Codes Description Effective Dates Marital status Unknown 10/25/[address]: 691138771 Never drinks alcohol 2019 Allergies, Adverse Reactions, [...] Instructions bethanechol chloride 25 mg tablet RxNorm: 175944 1 Tablet(s) Or al AC & HS 11/24/2019 05/22/2020 Active fluconazole 100 mg tablet RxNorm: 701822 1 Tablet(s) Oral QD 201912/07/2019 Inactive fluconazole 100 mg tablet RxNorm: 363939 1 Tablet(s) Oral QD 201911/23/2019 Inactive Tylenol Arthritis Pain 650 mg tablet,extended release RxNorm : 0782639 Tablet(s) Oral as needed 10/25/2019 No Stop Date Active aspirin 325 mg tablet RxNorm: 644665 1 Tablet(s) Oral QD 10/25/2019 No Stop Date Active pravastatin 20 mg tablet RxNorm: 943511 1 Tablet(s) Oral QD 020 10/25/2019 Inactive metoprolol succinate ER 25 mg tablet,extended release 24 hr RxNorm: 921522 1 Tablet(s) Oral QD 10/25/2019 No Stop Date Active glipizide 10 mg tablet RxNorm: 703166 1 Tablet(s) Oral QD 0 No Stop Date Active multivitamin tablet RxNorm: 1 Tablet(s) Oral QD 10/25/2019 No Stop D ate Active losartan 50 mg tablet RxNorm: 626037 1 Tablet(s) Oral QD 10/25/2019 No Stop Date Active levothyroxine 100 mcg tablet RxNorm: 884518 1 Tablet(s) Oral QD No Stop Date Active Bactrim DS 800 mg-160 mg tablet RxNorm: 591755 1 Tablet(s) Oral two times a day 10/25/2019 10/25/2019 Inactive prednisone 20 mg tablet RxNorm: 582650 1 Tablet(s) Oral two erica es a day 10/25/2019 11/01/2019 Inactive pravastatin 20 mg tablet RxNorm: 670962 1 Tablet(s) Oral QD 020 10/24/2019 Inactive Pepto-Bismol oral RxNorm: 68759 oral No Start Date Acti ve Medication Administered No Medication Administered data Immunizations No Immunization data Results No Results data Procedures Procedure Codes Date INFLUENZA ASSAY W/OPTIC CPT-4: 19453 11/01/2019 Vital Signs Date Vital 12/20/2019 Blood [...] visit Encounters Encounter Performer Location Codes Date (87950) OFFICE/OUTPATIENT VISIT EST Diagnosis: Essential hypertension[ICD10: I10] Diagnosis: Muscle weakness[ICD10: M62.81] Diagnosis: Pressure ulcer, buttock[ICD10: L89.309] Gene ANTUNEZ 5 CUPS and some sugar CPT-4: 69029 12/20/2019 ([id number]) OFFICE/OUTPATIENT VISIT EST Diagnosis: Diabetic neuropathy[ICD10: E11.40] Diagnosis: Pressure ulcer, buttock[ICD10: L89.309] Diagnosis: Muscle weakness[ICD10: M62.81] Diagnosis: Orthopnea[ICD10: R06.01] Diagnosis: Chronic congestive heart failure[ICD10: I50.9] Gene ANTUNEZ DO [employer] CPT-4: 42456 11/16/2019 ([id number]) NO CHARGE Diagnosis: Influenza A[ICD10: J10.1] Gene GRIMES DO [employer] CPT-4: 96286 11/01/2019 OFFICE/OUTPATIENT VISIT NEW Diagnosis: Essential hypertension[ICD10: I10] 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] Diagnosis: Dermatitis[ICD10: L30.9] Diagnosis: Pressure ulcer, buttock[ICD10: L89.309] Gene ANTUNEZ DO [employer] CPT-4: 45188 10/25/2019 Plan of Care Planned Activity Notes [...] R06.01 11/16/2019 Appointment: [facility] Ant[facility]el[facility] [address] [facility] [facility] Follow Up 11/16/2019 Care Plan: Referral Order SNOMED-CT : 30 1619366 Pending 11/16/2019 Visit Diagnosis Plan: Influenza A Discussion: Direct a dmit to hospital ICD-9 : 487.1 ICD-10 : J10.1 11/01/2019 Appointment: Gene Antunez WPtel: [address] [place] [address] [place] FOLLOW UP 11/01/2019 Visit Diagnosis Plan: [...] : L89.309 10/25/2019 Appointment: Gene Antunez WPtel: [address] [place] [address] [place] NEW PATIENT 10/25/2019 Patient Education: prednisone- [employer]RX Coupon [phone] https://[email or web address]/samplemd/resources/getResource/61/[email or web address] Completed 10/25/2019 Referral: Etelvina Marquez WPtel: [address] [place] [address] [place] Referral Appointment Requested Instructions No Instructions Medical Equipment No Medical Equipment data Health Concerns Section Health Concerns data not found Goals Section Goals data not found Interventions Section Interventions data not found Health Status Evaluations/Outcomes Section Health Status Evaluations/Outcomes data not found Advance Directives No Advance Directive data
--- OUTSIDE RECORDS SUMMARY | 2020-02-01 09:32 | XMS REPORT | CCD ---
Author Author Edward Antunez D.O. Organization GENE ANTUNEZ DO [facility] Address [address] [place] [address] Phone Care Team Providers Care Patient Registrar Name Role Phone PP Unavailable CCM Unavailable Summary Purpose Interface Exchange Insurance Providers Payer name Policy type / Coverage type Covered republican ID Effective Begin Date Effective End Date WPS MEDIC[place] Medicare Part B [id number] Unknown Unknown Family History Family History data not found Social History Social History Element Codes Description Effective Dates Marital status Unknown 10/25/[address]: 920466245 Never drinks alcohol 2019 Allergies, Adverse Reactions, [...] Pain 650 mg tablet,extended release RxNorm : 6972048 Tablet(s) Oral as needed 10/25/2019 No Stop Date Active aspirin 325 mg tablet RxNorm: 120083 1 Tablet(s) Oral QD 10/25/2019 No Stop Date Active pravastatin 20 mg tablet RxNorm: 745454 1 Tablet(s) Oral QD 020 10/25/2019 Inactive metoprolol succinate ER 25 mg tablet,extended release 24 hr RxNorm: 416991 1 Tablet(s) Oral QD 10/25/2019 No Stop Date Active glipizide 10 mg tablet RxNorm: 236651 1 Tablet(s) Oral QD 0 No Stop Date Active multivitamin tablet RxNorm: 1 Tablet(s) Oral QD 10/25/2019 No Stop D ate Active losartan 50 mg tablet RxNorm: 945417 1 Tablet(s) Oral QD 10/25/2019 No Stop Date Active levothyroxine 100 mcg tablet RxNorm: 456827 1 Tablet(s) Oral QD No Stop Date Active Bactrim DS 800 mg-160 mg tablet RxNorm: 504241 1 Tablet(s) Oral two times a day 10/25/2019 10/25/2019 Inactive prednisone 20 mg tablet RxNorm: 938432 1 Tablet(s) Oral two erica es a day 10/25/2019 11/01/2019 Inactive pravastatin 20 mg tablet RxNorm: 456129 1 Tablet(s) Oral QD 020 10/24/2019 Inactive Pepto-Bismol oral RxNorm: 21409 oral No Start Date Acti ve Medication Administered No Medication Administered data Immunizations No Immunization data Results No Results data Procedures Procedure Codes Date INFLUENZA ASSAY W/OPTIC CPT-4: 45199 11/01/2019 Vital Signs Date Vital 11/16/2019 Blood [...] Chronic congestive heart failure[ICD10: I50.9] Gene ANTUNEZ [employer] CPT-4: 12619 11/16/2019 (99258) NO CHARGE Diagnosis: Influenza A[ICD10: J10.1] Gene GRIMES [employer] CPT-4: 23504 11/01/2019 OFFICE/OUTPATIENT VISIT NEW Diagnosis: Essential hypertension[ICD10: I10] 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] Diagnosis: Dermatitis[ICD10: L30.9] Diagnosis: Pressure ulcer, buttock[ICD10: L89.309] Gene ANTUNEZ [employer] CPT-4: 52998 10/25/2019 Plan of Care Planned Activity Notes [...] : R06.01 11/16/2019 Appointment: Gene Antunez WPtel: [address] [place], [place] [phone] Hospital Follow Up 11/16/2019 Care Plan: Referral Order SNOMED-CT : 30 [id number] Pending 11/16/2019 Visit Diagnosis Plan: Influenza A Discussion: Direct a dmit to hospital ICD-9 : 487.1 ICD-10 : J10.1 11/01/2019 Appointment: Gene Antunez WPtel: [address] [place], [place] [phone] FOLLOW UP 11/01/2019 Visit Diagnosis Plan: DM [...] : I10 10/25/2019 Appointment: Gene Antunez WPtel: [address] [place], [place] [id number] NEW PATIENT 10/25/2019 Patient Education: prednisone- OptimizeRX Coupon [phone] https://www.[employer]/samplemd/resources/getResource/61/[email or web address] Completed 10/25/2019 Referral: Etelvina Marquez WPtel: [address] [place], [place] [phone] Referral Appointment Requested Instructions No Instructions Medical Equipment No Medical Equipment data Health Concerns Section Health Concerns data not found Goals Section Goals data not found Interventions Section Interventions data not found Health Status Evaluations/Outcomes Section Health Status Evaluations/Outcomes data not found Advance Directives No Advance Directive data
--- OUTSIDE RECORDS SUMMARY | 2020-02-01 09:32 | XMS REPORT | CCD ---
Author Author Edward Antunez D.O. Organization GENE ANTUNE[facility] DO [facility] Address [address] [place] [address] Phone Care Team Providers Care Race Board Attendant Name Role Phone PP Unavailable CCM Unavailable Summary Purpose Interface Exchange Insurance Providers Payer name Policy type / Coverage type Covered libertarian ID Effective Begin Date Effective End Date WPS MEDIC[place] Medicare Part B [id number] Unknown Unknown Family History Family History data not found Social History Social History Element Codes Description Effective Dates Marital status Unknown 10/25/[address]: 366367661 Never drinks alcohol 2019 Allergies, Adverse Reactions, [...] Instructions bethanechol chloride 25 mg tablet RxNorm: 898646 1 Tablet(s) Or al AC & HS 11/24/2019 05/22/2020 Active fluconazole 100 mg tablet RxNorm: 269305 1 Tablet(s) Oral QD 201912/07/2019 Active fluconazole 100 mg tablet RxNorm: 387297 1 Tablet(s) Oral QD 201911/23/2019 Inactive Tylenol Arthritis Pain 650 mg tablet,extended release RxNorm : 2504654 Tablet(s) Oral as needed 10/25/2019 No Stop Date Active aspirin 325 mg tablet RxNorm: 223764 1 Tablet(s) Oral QD 10/25/2019 No Stop Date Active pravastatin 20 mg tablet RxNorm: 847732 1 Tablet(s) Oral QD 020 10/25/2019 Inactive metoprolol succinate ER 25 mg tablet,extended release 24 hr RxNorm: 297725 1 Tablet(s) Oral QD 10/25/2019 No Stop Date Active glipizide 10 mg tablet RxNorm: 680784 1 Tablet(s) Oral QD 0 No Stop Date Active multivitamin tablet RxNorm: 1 Tablet(s) Oral QD 10/25/2019 No Stop D ate Active losartan 50 mg tablet RxNorm: 935409 1 Tablet(s) Oral QD 10/25/2019 No Stop Date Active levothyroxine 100 mcg tablet RxNorm: 264249 1 Tablet(s) Oral QD No Stop Date Active Bactrim DS 800 mg-160 mg tablet RxNorm: 704591 1 Tablet(s) Oral two times a day 10/25/2019 10/25/2019 Inactive prednisone 20 mg tablet RxNorm: 250919 1 Tablet(s) Oral two erica es a day 10/25/2019 11/01/2019 Inactive pravastatin 20 mg tablet RxNorm: 464086 1 Tablet(s) Oral QD 020 10/24/2019 Inactive Pepto-Bismol oral RxNorm: 19841 oral No Start Date Acti ve Medication Administered No Medication Administered data Immunizations No Immunization data Results No Results data Procedures Procedure Codes Date INFLUENZA ASSAY W/OPTIC CPT-4: 00492 11/01/2019 Vital Signs Date Vital 11/16/2019 Blood [...] Chronic congestive heart failure[ICD10: I50.9] Gene ANTUNEZ [employer] CPT-4: 72945 11/16/2019 (31708) NO CHARGE Diagnosis: Influenza A[ICD10: J10.1] Gene GRIMES [employer] CPT-4: 26615 11/01/2019 OFFICE/OUTPATIENT VISIT NEW Diagnosis: Essential hypertension[ICD10: I10] 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] Diagnosis: Dermatitis[ICD10: L30.9] Diagnosis: Pressure ulcer, buttock[ICD10: L89.309] Gene ANTUNEZ [facility] CPT-4: 14093 10/25/2019 Plan of Care Planned Activity Notes [...] : R06.01 11/16/2019 Appointment: Gene Antunez WPtel: [address] [place], [place] [phone] Hospital Follow Up 11/16/2019 Care Plan: Referral Order SNOMED-CT : 30 1647314 Pending 11/16/2019 Visit Diagnosis Plan: Influenza A Discussion: Direct a dmit to hospital ICD-9 : 487.1 ICD-10 : J10.1 11/01/2019 Appointment: Gene Antunez WPtel: [address] [place], [place] [phone] FOLLOW UP 11/01/2019 Visit Diagnosis Plan: DM [...] I10 10/25/2019 Appointment: Gene Antunez WPtel: [address] [place], [place] [phone] NEW PATIENT 10/25/2019 Patient Education: prednisone- OptimizeRX Coupon [phone] https://www.[employer]/samplemd/resources/getResource/61/[email or web address] Completed 10/25/2019 Referral: Etelvina Marquez WPtel: [address] [place], [place] [phone] Referral Appointment Requested Instructions No Instructions Medical Equipment No Medical Equipment data Health Concerns Section Health Concerns data not found Goals Section Goals data not found Interventions Section Interventions data not found Health Status Evaluations/Outcomes Section Health Status Evaluations/Outcomes data not found Advance Directives No Advance Directive data
--- OUTSIDE RECORDS SUMMARY | 2020-02-01 09:32 | XMS REPORT | CCD ---
Author Author Edward Antunez D.O. Organization [facility]ENE AN[facility] DO [facility] Address [address] [place] [address] Phone Care Team Providers Care Bull Fiddle Player Name Role Phone PP Unavailable CCM Unavailable Summary Purpose Interface Exchange Insurance Providers Payer name Policy type / Coverage type Covered republican ID Effective Begin Date Effective End Date WPS MEDICARE [place] B [place] Medicare Part B [id number] Unknown Unknown Family History Family History data not found Social History Social History Element Codes Description Effective Dates Marital status Unknown 10/25/[address]: 652679947 Never drinks alcohol 2019 Allergies, Adverse Reactions, [...] Instructions bethanechol chloride 25 mg tablet RxNorm: 463987 1 Tablet(s) Or al AC & HS 11/24/2019 05/22/2020 Active fluconazole 100 mg tablet RxNorm: 615262 1 Tablet(s) Oral QD 201912/07/2019 Inactive fluconazole 100 mg tablet RxNorm: 765496 1 Tablet(s) Oral QD 201911/23/2019 Inactive Tylenol Arthritis Pain 650 mg tablet,extended release RxNorm : 0663863 Tablet(s) Oral as needed 10/25/2019 No Stop Date Active aspirin 325 mg tablet RxNorm: 127134 1 Tablet(s) Oral QD 10/25/2019 No Stop Date Active pravastatin 20 mg tablet RxNorm: 808464 1 Tablet(s) Oral QD 020 10/25/2019 Inactive metoprolol succinate ER 25 mg tablet,extended release 24 hr RxNorm: 140679 1 Tablet(s) Oral QD 10/25/2019 No Stop Date Active glipizide 10 mg tablet RxNorm: 795275 1 Tablet(s) Oral QD 0 No Stop Date Active multivitamin tablet RxNorm: 1 Tablet(s) Oral QD 10/25/2019 No Stop D ate Active losartan 50 mg tablet RxNorm: 106812 1 Tablet(s) Oral QD 10/25/2019 No Stop Date Active levothyroxine 100 mcg tablet RxNorm: 032704 1 Tablet(s) Oral QD No Stop Date Active Bactrim DS 800 mg-160 mg tablet RxNorm: 262564 1 Tablet(s) Oral two times a day 10/25/2019 10/25/2019 Inactive prednisone 20 mg tablet RxNorm: 881199 1 Tablet(s) Oral two erica es a day 10/25/2019 11/01/2019 Inactive pravastatin 20 mg tablet RxNorm: 087490 1 Tablet(s) Oral QD 020 10/24/2019 Inactive Pepto-Bismol oral RxNorm: 56771 oral No Start Date Acti ve Medication Administered No Medication Administered data Immunizations No Immunization data Results No Results data Procedures Procedure Codes Date INFLUENZA ASSAY W/OPTIC CPT-4: 30639 11/01/2019 Vital Signs Date Vital 12/20/2019 Blood [...] visit Encounters Encounter Performer Location Codes Date (85227) OFFICE/OUTPATIENT VISIT EST Diagnosis: Essential hypertension[ICD10: I10] Diagnosis: Muscle weakness[ICD10: M62.81] Diagnosis: Pressure ulcer, buttock[ICD10: L89.309] Gene ANTUNEZ [employer] CPT-4: 56098 12/20/2019 (25015) OFFICE/OUTPATIENT VISIT EST Diagnosis: Diabetic neuropathy[ICD10: E11.40] Diagnosis: Pressure ulcer, buttock[ICD10: L89.309] Diagnosis: Muscle weakness[ICD10: M62.81] Diagnosis: Orthopnea[ICD10: R06.01] Diagnosis: Chronic congestive heart failure[ICD10: I50.9] Gene ANTUNEZ DO [employer] CPT-4: 47763 11/16/2019 (37324) NO CHARGE Diagnosis: Influenza A[ICD10: J10.1] Gene GRIMES DO [employer] CPT-4: 60159 11/01/2019 OFFICE/OUTPATIENT VISIT NEW Diagnosis: Essential hypertension[ICD10: I10] 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] Diagnosis: Dermatitis[ICD10: L30.9] Diagnosis: Pressure ulcer, buttock[ICD10: L89.309] Gene ANTUNEZ DO [employer] CPT-4: 65058 10/25/2019 Plan of Care Planned Activity Notes Codes Status Date Visit Diagnosis Plan: Muscle weakness Discussion: Charlene mejia last PT session today ICD-9 : 728.87 ICD-10 : M62.81 12/20/2019 Visit Diagnosis Plan: Essential hypertension Discussio n: Stable Check lab and fwup in 2mos Follow Up: 2 months ICD-9 : 401.9 ICD-10 : I10 12/20/2019 Visit Diagnosis Plan: Pressure ulcer, buttock Discussi on: Home Health nursing coming out routinely and has changed butt paste Follow Up: As needed ICD-9 : 707.05 ICD-10 : L89.309 12/20/2019 Visit Diagnosis Plan: Pressure ulcer, buttock Discussi on: Add diflucan Need to offload buttocks so need to sleep in bed so will proceed with hospital bed Doing Bourmaria eugeniaaux' Butt Paste with ABDs ICD-9 : 707.05 ICD-10 : L89.309 11/16/2019 Visit Diagnosis Plan: Orthopnea Discussion: Hospital b ed with elevation of head to 30 degrees ICD-9 : 786.02 ICD-10 : R06.01 11/16/2019 Visit Diagnosis Plan: Muscle weakness Discussion: In S NF doing PT/OT and will go home next week Follow Up: 1 months ICD-9 : 728.87 ICD-10 : M62.81 11/16/2019 Visit Diagnosis Plan: Diabetic neuropathy Discussion: Referral to podiatry for diabetic foot care and shoes ICD-9 : 250.60 ICD-10 : E11.40 11/16/2019 Appointment: [facility] [address] [facility] [facility] Follow Up 11/16/2019 Care Plan: Referral Order SNOMED-CT : 30 [id number] Pending 11/16/2019 Visit Diagnosis Plan: Influenza A Discussion: Direct a dmit to hospital ICD-9 : 487.1 ICD-10 : J10.1 11/01/2019 Appointment: Gene Antunez WPtel: [address] [place] [address] [place] FOLLOW UP 11/01/2019 Visit Diagnosis Plan: [...] : L89.309 10/25/2019 Appointment: Gene Antunez WPtel: [address] [place] [address] [place] NEW PATIENT 10/25/2019 Patient Education: prednisone- Opt[employer]RX Coupon [phone] https://www.[employer]ia.com/samplemd/resources/getResource/61/[email or web address] Completed 10/25/2019 Referral: Etelvina Marquez WPtel: [address] [place] [address] [place] Referral Appointment Requested Instructions No Instructions Medical Equipment No Medical Equipment data Health Concerns Section Health Concerns data not found Goals Section Goals data not found Interventions Section Interventions data not found Health Status Evaluations/Outcomes Section Health Status Evaluations/Outcomes data not found Advance Directives No Advance Directive data
--- OUTSIDE RECORDS SUMMARY | 2020-02-01 09:33 | XMS REPORT | CCD ---
Author Author Edward Antunez D.O. Organization [facility]ENE ANTUNEZ DO [facility] Address [address] [place] [address] Phone Care Team Providers Care Steam Presser Name Role Phone PP Unavailable CCM Unavailable Summary Purpose Interface Exchange Insurance Providers Payer name Policy type / Coverage type Covered republican ID Effective Begin Date Effective End Date WPS MEDICARE [place] B [place] Medicare Part B [id number] Unknown Unknown Family History Family History data not found Social History Social History Element Codes Description Effective Dates Marital status Unknown 10/25/[address]: 194983776 Never drinks alcohol 2019 Allergies, Adverse Reactions, [...] Pain 650 mg tablet,extended release RxNorm : 9434172 Tablet(s) Oral as needed 10/25/2019 No Stop Date Active aspirin 325 mg tablet RxNorm: 974457 1 Tablet(s) Oral QD 10/25/2019 No Stop Date Active pravastatin 20 mg tablet RxNorm: 517562 1 Tablet(s) Oral QD 020 10/25/2019 Inactive metoprolol succinate ER 25 mg tablet,extended release 24 hr RxNorm: 551542 1 Tablet(s) Oral QD 10/25/2019 No Stop Date Active glipizide 10 mg tablet RxNorm: 766222 1 Tablet(s) Oral QD 0 No Stop Date Active multivitamin tablet RxNorm: 1 Tablet(s) Oral QD 10/25/2019 No Stop D ate Active losartan 50 mg tablet RxNorm: 613648 1 Tablet(s) Oral QD 10/25/2019 No Stop Date Active levothyroxine 100 mcg tablet RxNorm: 019389 1 Tablet(s) Oral QD No Stop Date Active Bactrim DS 800 mg-160 mg tablet RxNorm: 306915 1 Tablet(s) Oral two times a day 10/25/2019 10/25/2019 Inactive prednisone 20 mg tablet RxNorm: 582486 1 Tablet(s) Oral two erica es a day 10/25/2019 11/01/2019 Inactive pravastatin 20 mg tablet RxNorm: 115607 1 Tablet(s) Oral QD 020 10/24/2019 Inactive Pepto-Bismol oral RxNorm: 40802 oral No Start Date Acti ve Medication Administered No Medication Administered data Immunizations No Immunization data Results No Results data Procedures Procedure Codes Date INFLUENZA ASSAY W/OPTIC CPT-4: 14622 11/01/2019 Vital Signs Date Vital 11/16/2019 Blood [...] Chronic congestive heart failure[ICD10: I50.9] Gene ANTUNEZ [employer] CPT-4: 20857 11/16/2019 (28566) NO CHARGE Diagnosis: Influenza A[ICD10: J10.1] Gene GRIMES [employer] CPT-4: 22133 11/01/2019 OFFICE/OUTPATIENT VISIT NEW Diagnosis: Essential hypertension[ICD10: I10] 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..] : L89.309 10/25/2019 Appointment: Gene Antunez WPtel: [facility] NEW PATIENT 10/25/2019 Patient Education: prednisone- OptimizeRX Coupon [phone] https://www.[employer]/samplemd/resources/getResource/61/[email or web address] Completed 10/25/2019 Referral: Etelvina Marquez WPtel: [address] [place], [place] [phone] Referral Appointment Requested Instructions No Instructions Medical Equipment No Medical Equipment data Health Concerns Section Health Concerns data not found Goals Section Goals data not found Interventions Section Interventions data not found Health Status Evaluations/Outcomes Section Health Status Evaluations/Outcomes data not found Advance Directives No Advance Directive data
--- OUTSIDE RECORDS SUMMARY | 2020-02-01 09:33 | XMS REPORT | CCD ---
Author Author Edward Antunez D.O. Organization [facility]ENE AN[facility]UN[facility]Z DO [facility] Address [address] [place] [address] Phone Care Team Providers Care Regulatory Process Manager Name Role Phone PP Unavailable CCM Unavailable Summary Purpose Interface Exchange Insurance Providers Payer name Policy type / Coverage type Covered constitution party ID Effective Begin Date Effective End Date WPS MEDIC[place] B [place] Medicare Part B [id number] Unknown Unknown Family History Family History data not found Social History Social History Element Codes Description Effective Dates Marital status Unknown 10/25/[address]: 402428848 Never drinks alcohol 2019 Allergies, Adverse Reactions, [...] Pain 650 mg tablet,extended release RxNorm : 5910188 Tablet(s) Oral as needed 10/25/2019 No Stop Date Active aspirin 325 mg tablet RxNorm: 944582 1 Tablet(s) Oral QD 10/25/2019 No Stop Date Active pravastatin 20 mg tablet RxNorm: 789576 1 Tablet(s) Oral QD 020 10/25/2019 Inactive metoprolol succinate ER 25 mg tablet,extended release 24 hr RxNorm: 785402 1 Tablet(s) Oral QD 10/25/2019 No Stop Date Active glipizide 10 mg tablet RxNorm: 710556 1 Tablet(s) Oral QD 0 No Stop Date Active multivitamin tablet RxNorm: 1 Tablet(s) Oral QD 10/25/2019 No Stop D ate Active losartan 50 mg tablet RxNorm: 757817 1 Tablet(s) Oral QD 10/25/2019 No Stop Date Active levothyroxine 100 mcg tablet RxNorm: 534921 1 Tablet(s) Oral QD No Stop Date Active Bactrim DS 800 mg-160 mg tablet RxNorm: 479703 1 Tablet(s) Oral two times a day 10/25/2019 10/25/2019 Inactive prednisone 20 mg tablet RxNorm: 976109 1 Tablet(s) Oral two erica es a day 10/25/2019 11/01/2019 Inactive pravastatin 20 mg tablet RxNorm: 248402 1 Tablet(s) Oral QD 020 10/24/2019 Inactive Pepto-Bismol oral RxNorm: 66273 oral No Start Date Acti ve Medication Administered No Medication Administered data Immunizations No Immunization data Results No Results data Procedures Procedure Codes Date INFLUENZA ASSAY W/OPTIC CPT-4: 43514 11/01/2019 Vital Signs Date Vital 11/16/2019 Blood [...] Chronic congestive heart failure[ICD10: I50.9] Gene ANTUNEZ [employer] CPT-4: 25367 11/16/2019 (12288) NO CHARGE Diagnosis: Influenza A[ICD10: J10.1] Gene GRIMES [employer] CPT-4: 81364 11/01/2019 OFFICE/OUTPATIENT VISIT NEW Diagnosis: Essential hypertension[ICD10: I10] 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] Diagnosis: Dermatitis[ICD10: L30.9] Diagnosis: Pressure ulcer, buttock[ICD10: L89.309] Gene ANTUNEZ [employer] CPT-4: 03078 10/25/2019 Plan of Care Planned Activity Notes Codes Status Date Visit Diagnosis Plan: Muscle weakness Discussion: In S NF doing PT/OT and will go home next week Follow Up: 1 months ICD-9 : 728.87 ICD-10 : M62.81 11/16/2019 Visit Diagnosis Plan: Diabetic neuropathy Discussion: Referral to podiatry for diabetic foot care and shoes ICD-9 : 250.60 ICD-10 : E11.40 11/16/2019 Visit Diagnosis Plan: Pressure ulcer, buttock Discussi on: Add diflucan Need to offload buttocks so need to sleep in bed so will proceed with hospital bed Doing [employer] Butt Paste with ABDs ICD-9 : 707.05 ICD-10 : L89.309 11/16/2019 Visit Diagnosis Plan: Orthopnea Discussion: Hospital b ed with elevation of head to 30 degrees ICD-9 : 786.02 ICD-10 : R06.01 11/16/2019 Care Plan: Referral Order SNOMED-CT : 30 2212706 Pending 11/16/2019 Visit Diagnosis Plan: Influenza A Discussion: Direct a dmit to hospital ICD-9 : 487.1 ICD-10 : J10.1 11/01/2019 Appointment: Gene Antunez WPtel: [address] [facility] [place] FOLLOW UP 11/01/2019 Visit Diagnosis Plan: [...] : I10 10/25/2019 Appointment: [facility] [address] [facility] [place] NEW PATIENT 10/25/2019 Patient Education: prednisone- Opt[employer] Coupon [phone] https://www.[employer]/samplemd/resources/getResource/61/[email or web address] Completed 10/25/2019 Referral: Etelvina Marquez WPtel: [address] [place], [place] [address] Referral Appointment Requested Instructions No Instructions Medical Equipment No Medical Equipment data Health Concerns Section Health Concerns data not found Goals Section Goals data not found Interventions Section Interventions data not found Health Status Evaluations/Outcomes Section Health Status Evaluations/Outcomes data not found Advance Directives No Advance Directive data
--- OUTSIDE RECORDS SUMMARY | 2020-02-01 09:33 | XMS REPORT | CCD ---
Author Author Edward Antunez D.O. 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 Name Role Phone PP Unavailable CCM Unavailable Summary Purpose Interface Exchange Insurance Providers Payer name Policy type / Coverage type Covered constitution party ID Effective Begin Date Effective End Date [place] MEDIC[place] B [place] Medicare Part B [id number] Unknown Unknown Family History Family History data not found Social History Social History Element Codes Description Effective Dates Marital status Unknown 10/25/[address]: 057632886 Never drinks alcohol 2019 Allergies, Adverse Reactions, [...] Pain 650 mg tablet,extended release RxNorm : 3848943 Tablet(s) Oral as needed 10/25/2019 No Stop Date Active aspirin 325 mg tablet RxNorm: 087616 1 Tablet(s) Oral QD 10/25/2019 No Stop Date Active pravastatin 20 mg tablet RxNorm: 423356 1 Tablet(s) Oral QD 020 10/25/2019 Inactive metoprolol succinate ER 25 mg tablet,extended release 24 hr RxNorm: 622118 1 Tablet(s) Oral QD 10/25/2019 No Stop Date Active glipizide 10 mg tablet RxNorm: 783508 1 Tablet(s) Oral QD 0 No Stop Date Active multivitamin tablet RxNorm: 1 Tablet(s) Oral QD 10/25/2019 No Stop D ate Active losartan 50 mg tablet RxNorm: 359901 1 Tablet(s) Oral QD 10/25/2019 No Stop Date Active levothyroxine 100 mcg tablet RxNorm: 815789 1 Tablet(s) Oral QD No Stop Date Active Bactrim DS 800 mg-160 mg tablet RxNorm: 824984 1 Tablet(s) Oral two times a day 10/25/2019 10/25/2019 Inactive prednisone 20 mg tablet RxNorm: 854953 1 Tablet(s) Oral two erica es a day 10/25/2019 11/01/2019 Inactive pravastatin 20 mg tablet RxNorm: 338359 1 Tablet(s) Oral QD 020 10/24/2019 Inactive Pepto-Bismol oral RxNorm: 11416 oral No Start Date Acti ve Medication Administered No Medication Administered data Immunizations No Immunization data Results No Results data Procedures Procedure Codes Date INFLUENZA ASSAY W/OPTIC CPT-4: 42202 11/01/2019 Vital Signs Date Vital 11/16/2019 Blood [...] Chronic congestive heart failure[ICD10: I50.9] [facility] CPT-4: 73002 11/16/2019 ([id number]) NO CHARGE Diagnosis: Influenza A[ICD10: J10.1] [facility] CPT-4: 02250 11/01/2019 OFFICE/OUTPATIENT VISIT NEW Diagnosis: Essential hypertension[ICD10: I10] 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] Diagnosis: Dermatitis[ICD10: L30.9] Diagnosis: Pressure ulcer, buttock[ICD10: L89.309] [facility] [employer] [facility] [facility] CPT-4: 26953 10/25/2019 Plan of Care Planned Activity Notes [...] Care Plan: Referral Order SNOMED-CT : 30 7005009 Pending 11/16/2019 Visit Diagnosis Plan: Influenza A Discussion: Direct a dmit to hospital ICD-9 : 487.1 ICD-10 : J10.1 11/01/2019 Appointment: Gene Antunez WPtel: [id number] [id number] US FOLLOW UP 11/01/2019 Visit Diagnosis [...] PATIENT 10/25/2019 Patient Education: prednisone- [employer] Coupon [id number] [email or web address] Completed 10/25/2019 Referral: Eetlvina Marquez WPtel: [address] [place], [place] [id number] Referral Appointment Requested Instructions No Instructions Medical Equipment No Medical Equipment data Health Concerns Section Health Concerns data not found Goals Section Goals data not found Interventions Section Interventions data not found Health Status Evaluations/Outcomes Section Health Status Evaluations/Outcomes data not found Advance Directives No Advance Directive data
--- NOTE | 2020-02-01 09:34 | NUR ---
DR SANG FRAUSTO
--- OUTSIDE RECORDS SUMMARY | 2020-02-01 09:34 | XMS REPORT | Continuity of Care Document ---
Author Organization Unknown Address Unknown Phone Unavailable Allergies Active Description Code Type Severity Reaction Onset Reported/Identified Relationship to Patient Clinical Status Yes No Known Drug Allergies [id number] Drug Allergy Unknown N/A 08/09/2012 Medications There is no data. 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 02/26/2016 TOM WALSH FACC, ALI FACP CCDS Ot I10 ESSENTIAL (PRIMARY) HYPERTENSION 02/26/2016 TOM WALSH FACC, ALI FACP CCDS Ot R06.02 SHORTNESS OF BREATH 02/26/2016 TOM WALSH FACC, ALI FACP CCDS Ot R07.89 OTHER CHEST PAIN 02/26/2016 TOM WALSH FACC, SAKSHI FACP CCDS Ot R94.31 ABNORMAL ELECTROCARDIOGRAM [ECG] [EKG] 02/29/2016 TOM WALSH FACC, ALI FACP CCDS Ot R07.89 OTHER CHEST PAIN 02/29/2016 TOM WALSH FACC, ALI FACP CCDS Ot E11.9 TYPE 2 DIABETES MELLITUS 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 02/29/2016 TOM WALSH FACC, ALI FACP CCDS Ot I10 ESSENTIAL (PRIMARY) HYPERTENSION 02/29/2016 TOM WALSH FACC, ALI FACP CCDS Ot R06.02 SHORTNESS OF BREATH 02/29/2016 TOM WALSH FACC, ALI FACP CCDS Ot R07.89 OTHER CHEST PAIN 02/29/2016 TOM WALSH FACC, ALI FACP CCDS Ot R94.31 ABNORMAL ELECTROCARDIOGRAM [ECG] [EKG] 03/25/2016 TOM WALSH FACC, ALI FACP CCDS Ot E11.9 TYPE 2 DIABETES MELLITUS 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 03/25/2016 TOM WALSH FACC, ALI FACP CCDS Ot I10 ESSENTIAL (PRIMARY) HYPERTENSION 03/25/2016 TOM PALM, ALI FACP CCDS Ot R06.02 SHORTNESS OF BREATH 03/25/2016 TOM WALSH [facility], ALI FACP CCDS Ot R07.89 OTHER CHEST PAIN 03/25/2016 TOM WALSH FACC, ALI FACP CCDS Ot R94.31 ABNORMAL ELECTROCARDIOGRAM [ECG] [EKG] 03/26/2016 TOM WALSH FAC, ALI FACP CCDS Ot E11.9 TYPE 2 DIABETES MELLITUS 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 03/26/2016 TOM WALSH [facility], ALI FACP CCDS Ot I10 ESSENTIAL (PRIMARY) HYPERTENSION 03/26/2016 TOM WALSH [facility], ALI FACP CCDS Ot R06.02 SHORTNESS OF BREATH 03/26/2016 TOM WALSH [facility], ALI FACP CCDS Ot R07.89 OTHER CHEST PAIN 03/26/2016 TOM WALSH [facility], ALI FACP CCDS Ot R94.31 ABNORMAL ELECTROCARDIOGRAM [ECG] [EKG] 03/27/2016 [facility] CCDS Ot E11.9 TYPE 2 DIABETES MELLITUS 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 03/27/2016 TOM WALSH [facility], ALI FACP CCDS Ot I10 ESSENTIAL (PRIMARY) HYPERTENSION 03/27/2016 TOM WALSH [facility], ALI FACP CCDS Ot R06.02 SHORTNESS OF BREATH 03/27/2016 TOM WALSH [facility], ALI FACP CCDS Ot R07.89 OTHER CHEST PAIN 03/27/2016 TOM WALSH [facility], ALI FACP CCDS Ot R94.31 ABNORMAL ELECTROCARDIOGRAM [ECG] [EKG] 04/14/2016 VICMA TRACEY L MEDICAL IMAGING TECHNOLOGIST Ot I 10 ESSENTIAL (PRIMARY) HYPERTENSION 04/15/2016 VICMA TRACEY L MEDICAL IMAGING TECHNOLOGIST Ot I 10 ESSENTIAL (PRIMARY) HYPERTENSION 04/15/2016 BAIMA TRACEY L MEDICAL IMAGING TECHNOLOGIST Ot I25.10 ATHSCL HEART DISEASE OF [place] CORONARY 04/15/2016 VICMA TRACEY L MEDICAL IMAGING TECHNOLOGIST Ot R06.02 SHORTNESS OF BREATH 04/15/2016 VICMA TRACEY L MEDICAL IMAGING TECHNOLOGIST Ot R94.31 ABNORMAL ELECTROCARDIOGRAM [ECG] [EKG] 04/18/2016 VICMA TRACEY L MEDICAL IMAGING TECHNOLOGIST Ot I 10 ESSENTIAL (PRIMARY) HYPERTENSION 04/18/2016 VICMA TRACEY L MEDICAL IMAGING TECHNOLOGIST Ot I25.10 ATHSCL HEART DISEASE OF [place] CORONARY 04/18/2016 TRACEY BOWEN L MEDICAL IMAGING TECHNOLOGIST Ot R06.02 SHORTNESS OF BREATH 04/18/2016 ALVARADO BOWENHER L MEDICAL IMAGING TECHNOLOGIST Ot R94.31 ABNORMAL ELECTROCARDIOGRAM [ECG] [EKG] 04/18/2016 [...] Ot R94.31 ABNORMAL ELECTROCARDIOGRAM [ECG] [EKG] 05/06/2016 VICTRACEY BUSTAMANTE L MEDICAL IMAGING TECHNOLOGIST Ot I 10 ESSENTIAL (PRIMARY) HYPERTENSION 05/06/2016 VICTRACEY BUSTAMANTE L MEDICAL IMAGING TECHNOLOGIST Ot I25.10 ATHSCL HEART DISEASE OF [place] CORONARY 05/06/2016 TRACEY BOWEN L MEDICAL IMAGING TECHNOLOGIST Ot R06.02 SHORTNESS OF BREATH 05/06/2016 VICALVARADO BUSTAMANTEHER L MEDICAL IMAGING TECHNOLOGIST Ot R94.31 ABNORMAL ELECTROCARDIOGRAM [ECG] [EKG] 08/11/2017 TOM WALSH FACC, SAKSHI FACP CCDS Ot E11.9 TYPE 2 DIABETES MELLITUS 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 08/11/2017 TOM WALSH FACC, ALI FACP CCDS Ot I10 ESSENTIAL (PRIMARY) HYPERTENSION 08/11/2017 TOM WALSH FACC, SAKSHI FACP CCDS Ot R06.02 SHORTNESS OF BREATH 08/11/2017 TOM WALSH FACC, SAKSHI FACP CCDS Ot R94.31 ABNORMAL ELECTROCARDIOGRAM [ECG] [EKG] 12/16/2017 TOM WALSH FACC, ALI FACP CCDS Ot E11.9 TYPE 2 DIABETES MELLITUS 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 12/16/2017 TOM WALSH FACC, ALI FACP CCDS Ot I10 ESSENTIAL (PRIMARY) HYPERTENSION 12/16/2017 TOM WALSH FACC, ALI FACP CCDS Ot R06.02 SHORTNESS OF BREATH 12/16/2017 TOM WALSH FACC, ALI FACP CCDS Ot R07.89 OTHER CHEST PAIN 12/16/2017 TOM WALSH FACC, SAKSHI FACP CCDS Ot R94.31 ABNORMAL ELECTROCARDIOGRAM [ECG] [...] ABNORMAL ELECTROCARDIOGRAM [ECG] [EKG] 12/16/2017 [facility], ALI FACP CCDS Ot E11.9 TYPE 2 DIABETES MELLITUS 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 12/16/2017 [facility], ALI FACP CCDS Ot I10 ESSENTIAL (PRIMARY) HYPERTENSION 12/16/2017 TOM [facility], ALI FACP CCDS Ot R06.02 SHORTNESS OF BREATH 12/16/2017 [facility], ALI FACP CCDS Ot R07.89 OTHER CHEST PAIN 12/16/2017 [facility], ALI FACP CCDS Ot R94.31 ABNORMAL ELECTROCARDIOGRAM [ECG] [EKG] 12/16/2017 TRACEY BOWEN L MEDICAL IMAGING TECHNOLOGIST Ot I 10 ESSENTIAL (PRIMARY) HYPERTENSION 12/16/2017 TRACEY BOWEN L MEDICAL IMAGING TECHNOLOGIST Ot I25.10 ATHSCL HEART DISEASE OF [place] CORONARY 12/16/2017 TRACEY BOWEN L MEDICAL IMAGING TECHNOLOGIST Ot R06.02 SHORTNESS OF BREATH 12/16/2017 TRACEY BOWEN MEDICAL IMAGING TECHNOLOGIST Ot R94.31 ABNORMAL ELECTROCARDIOGRAM [ECG] [EKG] 12/16/2017 [...] ELECTROCARDIOGRAM [ECG] [EKG] 12/16/2017 TRACEY BOWEN L MEDICAL IMAGING TECHNOLOGIST Ot I 10 ESSENTIAL (PRIMARY) HYPERTENSION 12/16/2017 ALVARADO BOWENHER L MEDICAL IMAGING TECHNOLOGIST Ot I25.10 ATHSCL HEART DISEASE OF [place] CORONARY 12/16/2017 TRACEY BOWEN L MEDICAL IMAGING TECHNOLOGIST Ot R06.02 SHORTNESS OF BREATH 12/16/2017 TRACEY BOWEN L MEDICAL IMAGING TECHNOLOGIST Ot R94.31 ABNORMAL ELECTROCARDIOGRAM [ECG] [EKG] 12/16/2017 TOM WALSH FACC, ALI FACP CCDS Ot E11.9 TYPE 2 DIABETES MELLITUS 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 12/16/2017 TOM MD FACC, ALI FACP CCDS [...] I10 ESSENTIAL (PRIMARY) HYPERTENSION 12/16/2017 [facility], ALI FACP CCDS Ot R06.02 SHORTNESS OF BREATH 12/16/2017 TOM WALSH FACC, ALI FACP CCDS Ot R07.89 OTHER CHEST PAIN 12/16/2017 [facility], ALI FACP CCDS Ot R94.31 ABNORMAL ELECTROCARDIOGRAM [ECG] [EKG] 12/16/2017 [facility], ALI FACP CCDS Ot E11.9 TYPE 2 DIABETES MELLITUS 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 12/16/2017 [facility], ALI FACP CCDS Ot I10 ESSENTIAL (PRIMARY) HYPERTENSION 12/16/2017 [facility], ALI FACP CCDS Ot R06.02 SHORTNESS OF BREATH 12/16/2017 [facility], ALI FACP CCDS Ot R07.89 OTHER CHEST PAIN 12/16/2017 [facility], ALI FACP CCDS Ot R94.31 ABNORMAL ELECTROCARDIOGRAM [ECG] [EKG] 12/16/2017 TOM WALSH [facility], ALI FACP CCDS Ot E11.9 TYPE 2 DIABETES MELLITUS 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 12/16/2017 TOM WALSH [facility], ALI FACP CCDS Ot I10 ESSENTIAL (PRIMARY) HYPERTENSION 12/16/2017 TOM PALM, ALI FACP CCDS Ot R06.02 SHORTNESS OF BREATH 12/16/2017 [facility]ALSH [facility], ALI FACP CCDS Ot R07.89 OTHER CHEST PAIN 12/16/2017 [facility], ALI FACP CCDS Ot R94.31 ABNORMAL ELECTROCARDIOGRAM [ECG] [EKG] 12/16/2017 TRACEY BOWEN MEDICAL IMAGING TECHNOLOGIST Ot I 10 ESSENTIAL (PRIMARY) HYPERTENSION 12/16/2017 TRACEY BOWEN MEDICAL IMAGING TECHNOLOGIST Ot I25.10 ATHSCL HEART DISEASE OF [place] CORONARY 12/16/2017 TRACEY BOWEN MEDICAL IMAGING TECHNOLOGIST Ot R06.02 SHORTNESS OF BREATH 12/16/2017 TRACEY BOWEN MEDICAL IMAGING TECHNOLOGIST Ot R94.31 ABNORMAL ELECTROCARDIOGRAM [ECG] [EKG] 12/16/2017 [...] ABNORMAL ELECTROCARDIOGRAM [ECG] [EKG] 12/16/2017 VICTRACEY BUSTAMANTE MEDICAL IMAGING TECHNOLOGIST Ot I 10 ESSENTIAL (PRIMARY) HYPERTENSION 12/16/2017 TRACEY BOWEN L MEDICAL IMAGING TECHNOLOGIST Ot I25.10 ATHSCL HEART DISEASE OF [place] CORONARY 12/16/2017 TRACEY BOWEN L MEDICAL IMAGING TECHNOLOGIST Ot R06.02 SHORTNESS OF BREATH 12/16/2017 TRACEY BOWEN MEDICAL IMAGING TECHNOLOGIST Ot R94.31 ABNORMAL ELECTROCARDIOGRAM [ECG] [EKG] 12/16/2017 TOM WALSH FACC, ALI FACP CCDS Ot E11.9 TYPE 2 DIABETES MELLITUS 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 12/16/2017 TOM WALSH FACC, ALI FACP CCDS Ot I10 ESSENTIAL (PRIMARY) HYPERTENSION 12/16/2017 TOM WALSH FACC, ALI FACP CCDS Ot R06.02 SHORTNESS OF BREATH 12/16/2017 TOM WALSH FACC, ALI FACP CCDS Ot R94.31 ABNORMAL ELECTROCARDIOGRAM [ECG] [EKG] 12/17/2017 TOM WALSH FACC, ALI FACP CCDS Ot E11.9 TYPE 2 DIABETES MELLITUS 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 12/17/2017 TOM WALSH FACC, ALI FACP CCDS Ot I10 ESSENTIAL (PRIMARY) HYPERTENSION 12/17/2017 TOM WALSH FACC, ALI FACP CCDS Ot R06.02 SHORTNESS OF BREATH 12/17/2017 TOM WALSH FACC, ALI FACP CCDS Ot R07.89 OTHER CHEST PAIN 12/17/2017 TOM WALSH FACC, ALI FACP CCDS Ot R94.31 ABNORMAL ELECTROCARDIOGRAM [ECG] [EKG] 12/17/2017 TOM WALSH FACC, ALI FACP CCDS Ot E11.9 TYPE 2 DIABETES MELLITUS 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 12/17/2017 TOM WALSH FACC, ALI FACP CCDS Ot I10 ESSENTIAL (PRIMARY) HYPERTENSION 12/17/2017 TOM WALSH FACC, ALI FACP CCDS Ot R06.02 SHORTNESS OF BREATH 12/17/2017 TOM WALSH FACC, ALI FACP CCDS Ot R07.89 OTHER CHEST PAIN 12/17/2017 TOM WALSH FACC, ALI FACP CCDS Ot R94.31 ABNORMAL ELECTROCARDIOGRAM [ECG] [EKG] 12/17/2017 TOM WALSH FACC, ALI FACP CCDS Ot E11.9 TYPE 2 DIABETES MELLITUS 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 12/17/2017 TOM WALSH FACC, ALI FACP CCDS Ot I10 ESSENTIAL (PRIMARY) HYPERTENSION 12/17/2017 TOM WALSH FACC, ALI FACP CCDS Ot R06.02 SHORTNESS OF BREATH 12/17/2017 TOM WALSH FACC, ALI FACP CCDS Ot R07.89 OTHER CHEST PAIN 12/17/2017 [facility]I FACP CCDS Ot R94.31 ABNORMAL ELECTROCARDIOGRAM [ECG] [EKG] 12/17/2017 JESSI TRACEY L MEDICAL IMAGING TECHNOLOGIST Ot I 10 ESSENTIAL (PRIMARY) HYPERTENSION 12/17/2017 BAIROBBY TRACEY L MEDICAL IMAGING TECHNOLOGIST Ot I25.10 ATHSCL HEART DISEASE OF [place] CORONARY 12/17/2017 ALVARADO BOWENHER L MEDICAL IMAGING TECHNOLOGIST Ot R06.02 SHORTNESS OF BREATH 12/17/2017 ALVARADO BOWENHER L MEDICAL IMAGING TECHNOLOGIST Ot R94.31 ABNORMAL ELECTROCARDIOGRAM [ECG] [EKG] 12/17/2017 TOM WALSH [facility], ALI FACP CCDS Ot E11.9 TYPE 2 DIABETES MELLITUS 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 12/17/2017 TOM WALSH FACC, ALI FACP CCDS Ot I10 ESSENTIAL (PRIMARY) HYPERTENSION 12/17/2017 TOM WALSH FACC, SAKSHI FACP CCDS Ot R06.02 SHORTNESS OF BREATH 12/17/2017 TOM WALSH FACC, ALI FACP CCDS Ot R94.31 ABNORMAL ELECTROCARDIOGRAM [ECG] [EKG] 12/18/2017 HIRAL CHASE DOI Ot A41.9 SEPSIS, UNSPECIFIED ORGANISM 12/18/2017 SALVATORE COOL LEXIE Ot E03.9 HYPOTHYROIDISM, UNSPECIFIED 12/18/2017 SALVATORE COOL LEXIE Ot 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 12/18/2017 SALVATORE COOL LEXIE Ot E78.5 HYPERLIPIDEMIA, UNSPECIFIED 12/18/2017 SALVATORE COOL LEXIE Ot E87.1 HYPO-OSMOLALITY AND HYPONATREMIA 12/18/2017 SALVATORE COOL LEXIE Ot I10 ESSENTIAL (PRIMARY) HYPERTENSION 12/18/2017 HIRAL CHASE DOI Ot I25.10 ATHSCL HEART DISEASE OF [place] CORONARY 12/18/2017 SALVATORE COOL LEXIE Ot I25.2 OLD MYOCARDIAL INFARCTION 12/18/2017 SALVATORE COOL LEXIE Ot I44.0 ATRIOVENTRICULAR BLOCK, FIRST DEGREE 12/18/2017 SALVATORE COOL LEXIE Ot I48.0 PAROXYSMAL ATRIAL FIBRILLATION 12/18/2017 SALVATORE COOL LEXIE Ot I49.5 SICK SINUS SYNDROME 12/18/2017 SALVATORE COOL LEXIE Ot I87.2 VENOUS INSUFFICIENCY (CHRONIC) (PERIPHER 12/18/2017 SALVATORE COOL LEXIE Ot J18.9 PNEUMONIA, UNSPECIFIED ORGANISM 12/18/2017 SALVATORE COOL LEXIE Ot L98.9 DISORDER OF THE SKIN AND SUBCUTANEOUS TI 12/18/2017 SALVATORE COOL LEXIE Ot M25.50 PAIN IN UNSPECIFIED JOINT 12/18/2017 SALVATORE COOL LEXIE Ot M54.9 DORSALGIA, UNSPECIFIED 12/18/2017 SALVATORE COOL LEXIE Ot N17.9 ACUTE KIDNEY FAILURE, UNSPECIFIED 12/18/2017 SALVATORE COOL LEXIE Ot N18.2 CHRONIC KIDNEY DISEASE, STAGE 2 (MILD) 12/18/2017 SALVATORE COOL LEXIE Ot N47.1 PHIMOSIS 12/18/2017 SALVATORE COOL LEXIE Ot R09.02 HYPOXEMIA 12/18/2017 SALVATORE COOL LEXIE Ot R32 UNSPECIFIED URINARY INCONTINENCE 12/18/2017 SALVATORE COOL LEXIE Ot R33.9 RETENTION OF URINE, UNSPECIFIED 12/18/2017 SALVATORE COOL LEXIE Ot R53.81 OTHER MALAISE 12/18/2017 SALVATORE COOL LEXIE Ot R65.20 SEVERE SEPSIS WITHOUT SEPTIC SHOCK 12/18/2017 SALVATORE COOL LEXIE Ot Z23 ENCOUNTER FOR IMMUNIZATION 12/18/2017 HIRAL CHASE DOI Ot Z79.84 SNF (CURRENT) USE OF ORAL HYPOGLYC 01/14/2018 MICHELLE FLYNN MD R Ot R30. 9 PAINFUL MICTURITION, UNSPECIFIED 01/14/2018 MICHELLE FLYNN MD R Ot R82. 99 OTHER ABNORMAL FINDINGS IN URINE 01/28/2018 MICHELLE FLYNN MD R Ot N39. 0 URINARY TRACT INFECTION, SITE NOT SPECIF 02/03/2018 MICHELLE FLYNN MD R Ot R30. 9 PAINFUL MICTURITION, UNSPECIFIED 02/03/2018 MICHELLE FLYNN MD R Ot R82. 99 OTHER ABNORMAL FINDINGS IN URINE 02/17/2018 RINA WALSH, MICHELLE R Ot N39. 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) USE OF ASPIRIN 04/26/2019 MARISSA BARCENAS MD Ot Z79.8 4 SNF (CURRENT) USE OF ORAL HYPOGLYC 04/26/2019 MARISSA BARCENAS MD Ot Z79.8 99 OTHER SNF (CURRENT) DRUG THERAPY 04/29/2019 MARISSA BARCENAS MD Ot E03.9 HYPOTHYROIDISM, UNSPECIFIED 04/29/2019 MARISSA BARCENAS MD Ot E11.9 TYPE 2 DIABETES MELLITUS 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 04/29/2019 MARISSA BARCENAS MD Ot E78.0 0 PURE HYPERCHOLESTEROLEMIA, UNSPECIFIED 04/29/2019 MARISSA BARCENAS MD Ot E78.5 HYPERLIPIDEMIA, UNSPECIFIED 04/29/2019 MARISSA BARCENAS MD Ot I10 ESSENTIAL (PRIMARY) HYPERTENSION 04/29/2019 MARISSA BARCENAS MD Ot I25.2 OLD MYOCARDIAL INFARCTION 04/29/2019 MARISSA BARCENAS MD Ot N47.1 PHIMOSIS 04/29/2019 MARISSA BARCENAS MD Ot Z79.8 2 SNF (CURRENT) USE OF ASPIRIN 04/29/2019 MARISSA BARCENAS MD Ot Z79.8 4 BAGGAGE AGENT SUPERVISOR (CURRENT) USE OF ORAL HYPOGLYC 04/29/2019 MARISSA BARCENAS MD Ot Z79.8 99 OTHER BAGGAGE AGENT SUPERVISOR (CURRENT) DRUG THERAPY 10/28/2019 [facility], SHERRIE S Ot E03.9 HYPOTHYROIDISM, UNSPECIFIED 10/28/2019 [facility], SHERRIE S Ot E11.65 TYPE 2 DIABETES MELLITUS WITH HYPERGLYCE 10/28/2019 [facility], SHERRIE S Ot E78.00 PURE HYPERCHOLESTEROLEMIA, UNSPECIFIED 10/28/2019 [facility], SHERRIE S Ot E86.0 DEHYDRATION 10/28/2019 [facility], SHERRIE S Ot E87.1 HYPO-OSMOLALITY AND HYPONATREMIA 10/28/2019 [facility], SHERRIE S Ot E87.5 HYPERKALEMIA 10/28/2019 [facility], SHERRIE S Ot F03.90 UNSPECIFIED DEMENTIA WITHOUT BEHAVIORAL 10/28/2019 [facility], SHERRIE S Ot I13.0 HYP HRT CHR KDNY DIS W HRT FAIL AND ST 10/28/2019 [facility], SHERRIE S Ot I21.A1 MYOCARDIAL INFARCTION TYPE 2 10/28/2019 [facility], SHERRIE S Ot I25.10 ATHSCL HEART DISEASE OF [place] CORONARY 10/28/2019 [facility], SHERRIE S Ot I25.2 OLD MYOCARDIAL INFARCTION 10/28/2019 [facility], SHERRIE S Ot I44.0 ATRIOVENTRICULAR BLOCK, FIRST DEGREE 10/28/2019 [facility], SHERRIE S Ot I45.10 UNSPECIFIED RIGHT BUNDLE-BRANCH BLOCK 10/28/2019 [facility], SHERRIE S Ot I48.91 UNSPECIFIED ATRIAL FIBRILLATION 10/28/2019 [facility], SHERRIE S Ot I50.33 ACUTE ON CHRONIC DIASTOLIC (CONGESTIVE) 10/28/2019 [facility], SHERRIE S Ot I87.2 VENOUS INSUFFICIENCY (CHRONIC) (PERIPHER 10/28/2019 [facility], SHERRIE S Ot L30.9 DERMATITIS, UNSPECIFIED 10/28/2019 [facility], SHERRIE S Ot L89.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, STAGE 1 10/28/2019 [facility], SHERRIE S Ot L89.312 PRESSURE ULCER OF RIGHT BUTTOCK, STAGE 2 10/28/2019 [facility], SHERRIE S Ot L89.321 PRESSURE ULCER OF LEFT BUTTOCK, STAGE 1 10/28/2019 ORENDER DO, SHERRIE S Ot L89.322 PRESSURE ULCER OF LEFT BUTTOCK, STAGE 2 10/28/2019 ORENDER DO, SHERRIE S Ot L89.892 PRESSURE ULCER OF OTHER SITE, STAGE 2 10/28/2019 ORENDER DO, SHERRIE S Ot M19.91 PRIMARY OSTEOARTHRITIS, UNSPECIFIED SITE 10/28/2019 ORENDER DO, SHERRIE S Ot M40.209 UNSPECIFIED KYPHOSIS, SITE UNSPECIFIED 10/28/2019 ORENDER DO, SHERRIE S Ot M54.9 DORSALGIA, UNSPECIFIED 10/28/2019 ORENDER DO, SHERRIE S Ot N17.9 ACUTE KIDNEY FAILURE, UNSPECIFIED 10/28/2019 ORENDER DO, SHERRIE S Ot N18.2 CHRONIC KIDNEY DISEASE, STAGE 2 (MILD) 10/28/2019 ORENDER DO, SHERRIE S Ot R01.1 CARDIAC MURMUR, UNSPECIFIED 10/28/2019 ORENDER DO, SHERRIE S Ot 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 10/28/2019 [facility], SHERRIE S Ot Z87.891 PERSONAL HISTORY OF NICOTINE DEPENDENCE 10/28/2019 Ot E11.65 TYP E 2 DIABETES MELLITUS WITH HYPERGLYCE 10/28/2019 Ot E78.5 HYPE RLIPIDEMIA, UNSPECIFIED 10/28/2019 Ot R53.83 OTH ER FATIGUE 10/29/2019 BUCKNDER DO, SHERRIE S Ot E03.9 HYPOTHYROIDISM, UNSPECIFIED 10/29/2019 [facility] EVER[facility] DO, SHERRIE S Ot E11.65 TYPE 2 DIABETES MELLITUS WITH HYPERGLYCE 10/29/2019 [facility] EVER[facility] DO, SHERRIE S Ot E78.00 PURE HYPERCHOLESTEROLEMIA, UNSPECIFIED 10/29/2019 ORENDER DO, SHERRIE S Ot E86.0 DEHYDRATION 10/29/2019 ORENDER DO, SHERRIE S Ot E87.1 HYPO-OSMOLALITY AND HYPONATREMIA 10/29/2019 ORENDER DO, SHERRIE S Ot E87.5 HYPERKALEMIA 10/29/2019 ORENDER DO, SHERRIE S Ot F03.90 UNSPECIFIED DEMENTIA WITHOUT BEHAVIORAL 10/29/2019 ORENDER DO, SHERRIE S Ot I13.0 HYP HRT CHR KDNY DIS W HRT FAIL AND ST 10/29/2019 ORENDER DO, SHERRIE S Ot I21.A1 MYOCARDIAL INFARCTION TYPE 2 10/29/2019 ORENDER DO, SHERRIE S Ot I25.10 ATHSCL HEART DISEASE OF [place] CORONARY 10/29/2019 ORENDER DO, SHERRIE S Ot I25.2 OLD MYOCARDIAL INFARCTION 10/29/2019 ORENDER DO, SHERRIE S Ot I44.0 ATRIOVENTRICULAR BLOCK, FIRST DEGREE 10/29/2019 ORENDER DO, SHERRIE S Ot I45.10 UNSPECIFIED RIGHT BUNDLE-BRANCH BLOCK 10/29/2019 ORENDER DO, SHERRIE S Ot I48.91 UNSPECIFIED ATRIAL FIBRILLATION 10/29/2019 ORENDER DO, SHERRIE S Ot I50.33 ACUTE ON CHRONIC DIASTOLIC (CONGESTIVE) 10/29/2019 ORENDER DO, SHERRIE S Ot I87.2 VENOUS INSUFFICIENCY (CHRONIC) (PERIPHER 10/29/2019 ORENDER DO, SHERRIE S Ot L30.9 DERMATITIS, UNSPECIFIED 10/29/2019 ORENDER DO, SHERRIE S Ot L89.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, STAGE 1 10/29/2019 ORENDER DO, SHERRIE S Ot L89.312 PRESSURE ULCER OF RIGHT BUTTOCK, STAGE 2 10/29/2019 ORENDER DO, SHERRIE S Ot L89.321 PRESSURE ULCER OF LEFT BUTTOCK, STAGE 1 10/29/2019 ORENDER DO, SHERRIE S Ot L89.322 PRESSURE ULCER OF LEFT BUTTOCK, STAGE 2 10/29/2019 ORENDER DO, SHERRIE S Ot L89.892 PRESSURE ULCER OF OTHER SITE, STAGE 2 10/29/2019 ORENDER DO, SHERRIE S Ot M19.91 PRIMARY OSTEOARTHRITIS, UNSPECIFIED SITE 10/29/2019 ORENDER DO, SHERRIE S Ot M40.209 UNSPECIFIED KYPHOSIS, SITE UNSPECIFIED 10/29/2019 ORENDER DO, SHERRIE S Ot M54.9 DORSALGIA, UNSPECIFIED 10/29/2019 ORENDER DO, SHERRIE S Ot N17.9 ACUTE KIDNEY FAILURE, UNSPECIFIED 10/29/2019 ORENDER DO, SHERRIE S Ot N18.2 CHRONIC KIDNEY DISEASE, STAGE 2 (MILD) 10/29/2019 [facility], SHERRIE Huang Ot R01.1 CARDIAC MURMUR, UNSPECIFIED 10/29/2019 [facility], SHERRIE Huang Ot 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 10/29/2019 [facility], SHERRIE Huang Ot Z87.891 PERSONAL HISTORY OF NICOTINE DEPENDENCE 10/29/2019 [facility], SHERRIE Huang Ot E03.9 HYPOTHYROIDISM, UNSPECIFIED 10/29/2019 [facility], SHERRIE S Ot E11.65 TYPE 2 DIABETES MELLITUS WITH HYPERGLYCE 10/29/2019 [facility], SHERRIE S Ot E78.00 PURE HYPERCHOLESTEROLEMIA, UNSPECIFIED 10/29/2019 [facility], SHERRIE S Ot E86.0 DEHYDRATION 10/29/2019 [facility], SHERRIE S Ot E87.1 HYPO-OSMOLALITY AND HYPONATREMIA 10/29/2019 [facility], SHERRIE S Ot E87.2 ACIDOSIS 10/29/2019 [facility], SHERRIE S Ot E87.5 HYPERKALEMIA 10/29/2019 [facility], SHERRIE S Ot F03.90 UNSPECIFIED DEMENTIA WITHOUT BEHAVIORAL 10/29/2019 [facility], SHERRIE S Ot I13.0 HYP HRT CHR KDNY DIS W HRT FAIL AND ST 10/29/2019 [facility], SHERRIE Huang Ot I21.A1 MYOCARDIAL INFARCTION TYPE 2 10/29/2019 [facility], SHERRIE Huang Ot I25.10 ATHSCL HEART DISEASE OF [place] CORONARY 10/29/2019 [facility], SHERRIE S Ot I25.2 OLD MYOCARDIAL INFARCTION 10/29/2019 [facility], SHERRIE Huang Ot I34.0 NONRHEUMATIC MITRAL (VALVE) INSUFFICIENC 10/29/2019 [facility], SHERRIE S Ot I44.0 ATRIOVENTRICULAR BLOCK, FIRST DEGREE 10/29/2019 [facility], SHERRIE S Ot I44.4 LEFT ANTERIOR FASCICULAR BLOCK 10/29/2019 [facility], SHERRIE S Ot I45.10 UNSPECIFIED RIGHT BUNDLE-BRANCH BLOCK 10/29/2019 [facility], SHERRIE S Ot I48.91 UNSPECIFIED ATRIAL FIBRILLATION 10/29/2019 ORENDER DO, SHERRIE S Ot I49.5 SICK SINUS SYNDROME 10/29/2019 ORENDER DO, SHERRIE S Ot I50.33 ACUTE ON CHRONIC DIASTOLIC (CONGESTIVE) 10/29/2019 ORENDER DO, SHERRIE S Ot I87.2 VENOUS INSUFFICIENCY (CHRONIC) (PERIPHER 10/29/2019 ORENDER DO, SHERRIE S Ot L30.9 DERMATITIS, UNSPECIFIED 10/29/2019 ORENDER DO, SHERRIE S Ot L89.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, STAGE 1 10/29/2019 ORENDER DO, SHERRIE S Ot L89.312 PRESSURE ULCER OF RIGHT BUTTOCK, STAGE 2 10/29/2019 ORENDER DO, SHERRIE S Ot L89.321 PRESSURE ULCER OF LEFT BUTTOCK, STAGE 1 10/29/2019 ORENDER DO, SHERRIE S Ot L89.322 PRESSURE ULCER OF LEFT BUTTOCK, STAGE 2 10/29/2019 ORENDER DO, SHERRIE S Ot L89.892 PRESSURE ULCER OF OTHER SITE, STAGE 2 10/29/2019 ORENDER DO, SHERRIE S Ot M19.91 PRIMARY OSTEOARTHRITIS, UNSPECIFIED SITE 10/29/2019 ORENDER DO, SHERRIE S Ot M40.209 UNSPECIFIED KYPHOSIS, SITE UNSPECIFIED 10/29/2019 ORENDER DO, SHERRIE S Ot M54.9 DORSALGIA, UNSPECIFIED 10/29/2019 ORENDER DO, SHERRIE S Ot N17.9 ACUTE KIDNEY FAILURE, UNSPECIFIED 10/29/2019 ORENDER DO, SHERRIE S Ot N18.2 CHRONIC KIDNEY DISEASE, STAGE 2 (MILD) 10/29/2019 ORENDER DO, SHERRIE S Ot N18.3 CHRONIC KIDNEY DISEASE, STAGE 3 (MODERAT 10/29/2019 ORENDER DO, SHERRIE S Ot R01.1 CARDIAC MURMUR, UNSPECIFIED 10/29/2019 ORENDER DO, SHERRIE S Ot R32 UNSPECIFIED URINARY INCONTINENCE 10/29/2019 ORENDER DO, SHERRIE S Ot 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 10/29/2019 ORENDER DO, SHERRIE S Ot Z87.891 PERSONAL HISTORY OF NICOTINE DEPENDENCE 11/03/2019 ORENDER DO, SHERRIE S Ot E03.9 HYPOTHYROIDISM, UNSPECIFIED 11/03/2019 [facility], SHERRIE S Ot E11.9 TYPE 2 DIABETES MELLITUS 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 11/03/2019 [facility], SHERRIE S Ot E78.00 PURE HYPERCHOLESTEROLEMIA, UNSPECIFIED 11/03/2019 [facility] [facility] SHERRIE S Ot I11.0 HYPERTENSIVE HEART DISEASE WITH HEART FA 11/03/2019 [facility], SHERRIE S Ot I21.4 NON-ST ELEVATION (NSTEMI) MYOCARDIAL INF 11/03/2019 [facility], SHERRIE S Ot I25.10 ATHSCL HEART DISEASE OF [place] CORONARY 11/03/2019 [facility], SHERRIE S Ot I48.91 UNSPECIFIED ATRIAL FIBRILLATION 11/03/2019 [facility], SHERRIE S Ot I50.33 ACUTE ON CHRONIC DIASTOLIC (CONGESTIVE) 11/03/2019 [facility], SHERRIE S Ot J10.1 FLU DUE TO OT IDENT INFLUENZA VIRUS W O 11/03/2019 [facility], SHER[place]E S Ot M19.91 PRIMARY OSTEOARTHRITIS, UNSPECIFIED SITE 11/03/2019 [facility], [place]E S Ot M54.9 DORSALGIA, UNSPECIFIED 11/03/2019 [facility], SHER[place]E S Ot R06.02 SHORTNESS OF BREATH 11/03/2019 [facility], [place] S Ot R53.81 OTHER MALAISE 11/03/2019 [facility], SHERRIE S Ot Z66 DO NOT RESUSCITATE 11/03/2019 [facility], [place] S Ot 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 11/04/2019 [facility], SHERRIE S Ot E03.9 HYPOTHYROIDISM, UNSPECIFIED 11/04/2019 [facility] SHERRIE S Ot E11.9 TYPE 2 DIABETES MELLITUS 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 11/04/2019 [facility] [place]E S Ot E78.00 PURE HYPERCHOLESTEROLEMIA, UNSPECIFIED 11/04/2019 [facility], SHERRIE S Ot I11.0 HYPERTENSIVE HEART DISEASE WITH HEART FA 11/04/2019 [facility] [place]E S Ot I21.4 NON-ST ELEVATION (NSTEMI) MYOCARDIAL INF 11/04/2019 [facility], SHERRIE S Ot I25.10 ATHSCL HEART DISEASE OF [place] CORONARY 11/04/2019 [facility], SHERRIE S Ot I48.91 UNSPECIFIED ATRIAL FIBRILLATION 11/04/2019 [facility], SHERRIE S Ot I50.33 ACUTE ON CHRONIC DIASTOLIC (CONGESTIVE) 11/04/2019 [facility], SHERRIE S Ot J10.1 FLU DUE TO OTH IDENT INFLUENZA VIRUS W O 11/04/2019 [facility], SHERRIE S Ot M19.91 PRIMARY OSTEOARTHRITIS, UNSPECIFIED SITE 11/04/2019 [facility], SHERRIE S Ot M54.9 DORSALGIA, UNSPECIFIED 11/04/2019 [facility], SHERRIE S Ot R06.02 SHORTNESS OF BREATH 11/04/2019 [facility], SHERRIE S Ot R53.81 OTHER MALAISE 11/04/2019 [facility], SHERRIE S Ot Z66 DO NOT RESUSCITATE 11/04/2019 [facility], SHERRIE S Ot Z79.84 SNF (CURRENT) USE OF ORAL HYPOGLYC 11/04/2019 W J10.1 Infl uenza A Orender, Sherrie S. 11/04/2019 W E11.9 DM w /o complication type II Orender, Sherrie S. 11/04/2019 W I10 Essent ial hypertension Orender, Sherrie S. 11/04/2019 W L30.9 Derm atitis Orender, Sherrie S. 11/04/2019 W L89.309 Pr essure ulcer, buttock Orender, Sherrie S. 11/04/2019 [facility], SHERRIE S Ot E03.9 HYPOTHYROIDISM, UNSPECIFIED 11/04/2019 [facility], SHERRIE S Ot E11.9 TYPE 2 DIABETES MELLITUS 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 11/04/2019 [facility], SHERRIE S Ot E78.00 PURE HYPERCHOLESTEROLEMIA, UNSPECIFIED 11/04/2019 [facility], SHERRIE S Ot F03.90 UNSPECIFIED DEMENTIA WITHOUT BEHAVIORAL 11/04/2019 [facility], SHERRIE S Ot I13.0 HYP HRT CHR KDNY DIS W HRT FAIL AND ST 11/04/2019 [facility], SHERRIE S Ot I21.4 NON-ST ELEVATION (NSTEMI) MYOCARDIAL INF [facility] S Ot I25.10 ATHSCL HEART DISEASE OF [place] CORONARY 11/04/2019 [facility], SHERRIE S Ot I48.91 UNSPECIFIED ATRIAL FIBRILLATION 11/04/2019 [facility] [place] S Ot I50.33 ACUTE ON CHRONIC DIASTOLIC (CONGESTIVE) 11/04/2019 [facility], [place] S Ot J10.1 FLU DUE TO [facility] IDENT INFLUENZA VIRUS W O 11/04/2019 [facility], SHERRIE S Ot L89.159 PRESSURE ULCER OF SACRAL REGION, UNSPECI 11/04/2019 [facility], SH[place] S Ot M19.91 PRIMARY OSTEOARTHRITIS, UNSPECIFIED SITE 11/04/2019 [facility], [place] S Ot M54.9 DORSALGIA, UNSPECIFIED 11/04/2019 [facility], [place] S Ot N18.9 CHRONIC KIDNEY DISEASE, UNSPECIFIED 11/04/2019 [facility], SHER[place]E S Ot Z66 DO NOT RESUSCITATE 11/04/2019 [facility], [place] S Ot Z79.84 SNF (CURRENT) USE OF ORAL HYPOGLYC 11/16/2019 Ot E11.65 TYP E 2 DIABETES MELLITUS WITH HYPERGLYCE 11/16/2019 Ot E78.5 HYPE RLIPIDEMIA, UNSPECIFIED 11/16/2019 Ot R53.83 OTH ER FATIGUE 11/16/2019 W 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 11/16/2019 W L89.309 Pr essure ulcer, buttock Orender, Sherrie S. 11/16/2019 W M62.81 Mus emilia weakness Bucknder, Sherrie S. 11/16/2019 W R06.01 Ort hopnea Franciaer, Sherrie S. 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 11/17/2019 W L89.309 Pr essure ulcer, buttock Orender, Sherrie S. 11/17/2019 W M62.81 Mus emilia weakness Orender, Sherrie S. 11/17/2019 W R06.01 Ort hopnea Orender, Sherrie S. 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 11/23/2019 W L89.309 Pr essure ulcer, buttock Orender, Sherrie S. 11/23/2019 W M62.81 Mus emilia weakness Orender, Sherrie S. 11/23/2019 W R06.01 Ort hopnea Orender, Sherrie S. 12/20/2019 W I10 Essent ial hypertension Orender, Sherrie S. 12/20/2019 W L89.309 Pr essure ulcer, buttock Orender, Sherrie S. 12/20/2019 W M62.81 Mus emilia weakness Orender, Sherrie S. 12/20/2019 W I10 Essent ial hypertension Orender, Sherrie S. 12/20/2019 W L89.309 Pr essure ulcer, buttock Orender, Sherrie S. 12/20/2019 W M62.81 Mus emilia weakness Orender, Sherrie S. Procedures Code Description Performed By Miguel Angel monte On [id number] [facility] ASURE OF CARDIAC SAMPL PRESSURE, L H 10/28/2019 [id number] FL UOROSCOPY OF MULT COR ART USING L OSM 10/28/2019 [id number] FL UOROSCOPY OF LEFT HEART USING LOW OSMO 10/28/2019 Results Test Result Range Comprehensive metabolic panel - 07/21/17 15:55 Serum or plasma sodium measurement (moles/volume) 140 mmol/L 135-145 Serum or plasma potassium measurement (moles/volume) 4.6 mmol/L 3.6-5.0 Serum or plasma chloride measurement (moles/volume) 109 mmol/L 98-107 Carbon dioxide 22 mmol/L 21-32 Serum or plasma anion gap determination (moles/volume) 9 mmol/L 5-14 Serum or plasma urea nitrogen measurement (mass/volume ) 29 mg/dL 7-18 Serum or plasma creatinine measurement (mass/volume) 1.28 mg/dL 0.60-1.30 Serum or plasma urea nitrogen/creatinine mass ratio 23 NRG Serum or plasma creatinine measurement w ith calculation of estimated glomerular filtration rate 54 NRG Serum or plasma glucose measurement (mass/volume) 140 mg/dL 70-105 Serum or plasma calcium measurement (mass/volume) 9.1 mg/dL 8.5-10.1 Serum or plasma total bilirubin measurement (mass/volu me) 0.8 mg/dL 0.1-1.0 Serum or plasma alkaline phosphatase evan surement (enzymatic activity/volume) 64 U/L 40-136 Serum or plasma aspartate aminotransfera se measurement (enzymatic activity/volume) 29 U/L 5-34 Serum or plasma alanine aminotransferase measurement (enzymatic activity/volume) 27 U/L 0-55 Serum or plasma protein measurement (mass/volume) 7.4 g/dL 6.4-8.2 Serum or plasma albumin measurement (mass/volume) 4.1 g/dL 3.2-4.5 Lipid 1996 panel - 07/21/17 15:55 Serum or plasma triglyceride measurement (mass/volume) 139 mg/dL <150 Serum or plasma cholesterol measurement (mass/volume) 139 mg/dL < 200 Serum or plasma cholesterol in HDL measurement (mass/v olume) 46 mg/dL 40-60 Cholesterol in LDL [mass/volume] in serum or plasma by direct assay 74 mg/dL 1-129 Serum or plasma cholesterol in VLDL measurement (mass/ volume) 28 mg/dL 5-40 THYROID STIMULATING HORMONE - 07/21/17 1 5:55 THYROID STIMULATING HORMONE 30.61 u[iU]/mL 0.35-4.94 Complete blood count (CBC) with automate d white blood cell (WBC) differential - 12/16/17 12:00 Blood leukocytes automated count (number/volume) 12.1 10*3/uL 4.3-11.0 Blood erythrocytes automated count (number/volume) 4.19 10*6/uL 4.35-5.85 Venous blood hemoglobin measurement (mass/volume) 13.1 g/dL 13.3-17.7 Blood hematocrit (volume fraction) 38 % 40-54 Automated erythrocyte mean corpuscular volume 90 [ foz_us] 80-99 Automated erythrocyte mean corpuscular h emoglobin (mass per erythrocyte) 31 pg 25-34 Automated erythrocyte mean corpuscular h emoglobin concentration measurement (mass/volume) 35 g/dL 32-36 Automated erythrocyte distribution width ratio 13. 6 % 10.0- 14.5 Automated blood platelet count (count/volume) 254 10*3/uL [...] 10*3 1.0-4.0 Blood monocytes automated count (number/volume) 1. 4 10*3 0.0-1.0 Automated eosinophil count 0.0 10*3/uL 0 .0-0.3 Automated blood basophil count (count/volume) 0.0 10*3/uL 0.0-0.1 Comprehensive metabolic panel - 12/16/17 12:00 Serum or plasma sodium measurement (moles/volume) 134 mmol/L 135-145 Serum or plasma potassium measurement (moles/volume) 4.5 mmol/L 3.6-5.0 Serum or plasma chloride measurement (moles/volume) 102 mmol/L 98-107 Carbon dioxide 17 mmol/L 21-32 Serum or plasma anion gap determination (moles/volume) 15 mmol/L 5-14 Serum or plasma urea nitrogen measurement (mass/volume ) 40 mg/dL 7-18 Serum or plasma creatinine measurement (mass/volume) 1.64 mg/dL 0.60-1.30 Serum or plasma urea nitrogen/creatinine mass ratio 24 NRG Serum or plasma creatinine measurement w ith calculation of estimated glomerular filtration rate 40 NRG Serum or plasma glucose measurement (mass/volume) 328 mg/dL 70-105 Serum or plasma calcium measurement (mass/volume) 9.5 mg/dL 8.5-10.1 Serum or plasma total bilirubin measurement (mass/volu me) 0.6 mg/dL 0.1-1.0 Serum or plasma alkaline phosphatase evan surement (enzymatic activity/volume) 84 U/L 40-136 Serum or plasma aspartate aminotransfera se measurement (enzymatic activity/volume) 31 U/L 5-34 Serum or plasma alanine aminotransferase measurement (enzymatic activity/volume) 40 U/L 0-55 Serum or plasma protein measurement (mass/volume) 8.0 g/dL 6.4-8.2 Serum or plasma albumin measurement (mass/volume) 3.7 g/dL 3.2-4.5 Blood lactic acid measurement (moles/vol ume) - 12/16/17 12:00 Blood lactic acid measurement (moles/volume) 2.75 mmol/L 0.50-2.00 Blood manual differential performed dete ction - 12/16/17 12:00 Blood monocytes/100 leukocytes 11 % NRG Manual blood segmented neutrophils/100 leukocytes 68 % NRG Blood band neutrophils/100 leukocytes 6 % NRG Manual blood lymphocytes/100 leukocytes 12 % NRG Manual eosinophils/100 leukocytes in nose 2 % NRG Manual blood basophils/100 leukocytes 0 % NRG Blood erythrocyte morphology finding identification NORMAL NRG Manual blood myelocytes/100 leukocytes 1 % NRG Bacterial blood culture - 12/16/17 12:00 Bacterial blood culture NG NRG Bacterial blood culture - 12/16/17 12:10 Bacterial blood culture NG NRG Sputum Gram stain - 12/16/17 13:19 GRAM STAIN SPUTUM AND MIXED BACTERIAL CARRI NRG Bacterial sputum culture - 12/16/17 13:1 9 FREE TEXT EXTERNAL SENT TO [facility] FOR SENSITIVITY 4-1 3-18 NRG QUANTITY OF GROWTH Abundant Growth NRG Bacterial sputum culture [id number] NRG Serum or plasma lactate measurement (mol es/volume) - 12/16/17 14:35 Serum or plasma lactate measurement (moles/volume) 2.31 mmol/L 0.50-2.00 Methicillin resistant Staphylococcus aur eus (MRSA) screening culture - 12/16/17 15:30 Methicillin resistant Staphylococcus aureus (MRSA) scr eening culture NEG NRG Capillary blood glucose measurement by g lucometer (mass/volume) - 12/16/17 15:53 Capillary blood glucose measurement by glucometer (mas s/volume) 269 mg/dL 70-110 Capillary blood glucose measurement by g lucometer (mass/volume) - 12/16/17 20:54 Capillary blood glucose measurement by glucometer (mas s/volume) 147 mg/dL 70-110 Complete blood count (CBC) with automate d white blood cell (WBC) differential - 12/17/17 03:40 Blood leukocytes automated count (number/volume) 7.9 10*3/uL 4.3-11.0 Blood erythrocytes automated count (number/volume) 3.44 10*6/uL 4.35-5.85 Venous blood hemoglobin measurement (mass/volume) 10.7 g/dL 13.3-17.7 Blood hematocrit (volume fraction) 31 % 40-54 Automated erythrocyte mean corpuscular volume 91 [ foz_us] 80-99 Automated erythrocyte mean corpuscular h emoglobin (mass per erythrocyte) 31 pg 25-34 Automated erythrocyte mean corpuscular h emoglobin concentration measurement (mass/volume) 34 g/dL 32-36 Automated erythrocyte distribution width ratio 13. 7 % 10.0- 14.5 Automated blood platelet count (count/volume) 240 10*3/uL [...] 10*3 1.0-4.0 Blood monocytes automated count (number/volume) 1. 0 10*3 0.0-1.0 Automated eosinophil count 0.1 10*3/uL 0 .0-0.3 Automated blood basophil count (count/volume) 0.0 10*3/uL 0.0-0.1 Comprehensive metabolic panel - 12/17/17 03:40 Serum or plasma sodium measurement (moles/volume) 139 mmol/L 135-145 Serum or plasma potassium measurement (moles/volume) 3.6 mmol/L 3.6-5.0 Serum or plasma chloride measurement (moles/volume) 112 mmol/L 98-107 Carbon dioxide 18 mmol/L 21-32 Serum or plasma anion gap determination (moles/volume) 9 mmol/L 5-14 Serum or plasma urea nitrogen measurement (mass/volume ) 31 mg/dL 7-18 Serum or plasma creatinine measurement (mass/volume) 1.21 mg/dL 0.60-1.30 Serum or plasma urea nitrogen/creatinine mass ratio 26 NRG Serum or plasma creatinine measurement w ith calculation of estimated glomerular filtration rate 57 NRG Serum or plasma glucose measurement (mass/volume) 103 mg/dL 70-105 Serum or plasma calcium measurement (mass/volume) 8.2 mg/dL 8.5-10.1 Serum or plasma total bilirubin measurement (mass/volu me) 0.5 mg/dL 0.1-1.0 Serum or plasma alkaline phosphatase evan surement (enzymatic activity/volume) 61 U/L 40-136 Serum or plasma aspartate aminotransfera se measurement (enzymatic activity/volume) 28 U/L 5-34 Serum or plasma alanine aminotransferase measurement (enzymatic activity/volume) 32 U/L 0-55 Serum or plasma protein measurement (mass/volume) 6.3 g/dL 6.4-8.2 Serum or plasma albumin measurement (mass/volume) 3.0 g/dL 3.2-4.5 Serum or plasma phosphate measurement (m ass/volume) - 12/17/17 03:40 Serum or plasma phosphate measurement (mass/volume) 3.0 mg/dL 2.3-4.7 Magnesium - 12/17/17 03:40 Magnesium 1.9 mg/dL 1.8-2.4 THYROID STIMULATING HORMONE - 12/17/17 0 3:40 THYROID STIMULATING HORMONE 1.30 u[iU]/mL 0.35-4.94 Capillary blood glucose measurement by g lucometer (mass/volume) - 12/17/17 11:26 Capillary blood glucose measurement by glucometer (mas s/volume) 156 mg/dL 70-110 Capillary blood glucose measurement by g lucometer (mass/volume) - 12/17/17 16:05 Capillary blood glucose measurement by glucometer (mas s/volume) 153 mg/dL 70-110 Capillary blood glucose measurement by g lucometer (mass/volume) - 12/17/17 20:48 Capillary blood glucose measurement by glucometer (mas s/volume) 162 mg/dL 70-110 Complete blood count (CBC) with automate d white blood cell (WBC) differential - 12/18/17 03:05 Blood leukocytes automated count (number/volume) 9.1 10*3/uL 4.3-11.0 Blood erythrocytes automated count (number/volume) 3.67 10*6/uL 4.35-5.85 Venous blood hemoglobin measurement (mass/volume) 11.2 g/dL 13.3-17.7 Blood hematocrit (volume fraction) 34 % 40-54 Automated erythrocyte mean corpuscular volume 92 [ foz_us] 80-99 Automated erythrocyte mean corpuscular h emoglobin (mass per erythrocyte) 31 pg 25-34 Automated erythrocyte mean corpuscular h emoglobin concentration measurement (mass/volume) 33 g/dL 32-36 Automated erythrocyte distribution width ratio 14. 3 % 10.0- 14.5 Automated blood platelet count (count/volume) 269 10*3/uL 130-400 Automated blood platelet mean volume measurement 11.0 [foz_us] 7.4-10.4 Automated blood neutrophils/100 leukocytes 75 % 42-75 Automated blood lymphocytes/100 leukocytes 13 % 12-44 Blood monocytes/100 leukocytes 10 % 0-12 Automated blood eosinophils/100 leukocytes 1 % 0-10 Automated blood basophils/100 leukocytes 0 % 0-10 Blood neutrophils automated count (number/volume) 6.8 10*3 1.8-7.8 Blood lymphocytes automated count (number/volume) 1.2 10*3 1.0-4.0 Blood monocytes automated count (number/volume) 0. 9 10*3 0.0-1.0 Automated eosinophil count 0.1 10*3/uL 0 .0-0.3 Automated blood basophil count (count/volume) 0.0 10*3/uL 0.0-0.1 Whole blood basic metabolic panel - 12/06 11/22 03:05 Serum or plasma sodium measurement (moles/volume) 140 mmol/L 135-145 Serum or plasma potassium measurement (moles/volume) 4.0 mmol/L 3.6-5.0 Serum or plasma chloride measurement (moles/volume) 114 mmol/L 98-107 Carbon dioxide 15 mmol/L 21-32 Serum or plasma anion gap determination (moles/volume) 11 mmol/L 5-14 Serum or plasma urea nitrogen measurement (mass/volume ) 21 mg/dL 7-18 Serum or plasma creatinine measurement (mass/volume) 1.14 mg/dL 0.60-1.30 Serum or plasma urea nitrogen/creatinine mass ratio 18 NRG Serum or plasma creatinine measurement w ith calculation of estimated glomerular filtration rate > NRG Serum or plasma glucose measurement (mass/volume) 143 mg/dL 70-105 Serum or plasma calcium measurement (mass/volume) 8.3 mg/dL 8.5-10.1 Capillary blood glucose measurement by g lucometer (mass/volume) - 12/18/17 05:04 Capillary blood glucose measurement by glucometer (mas s/volume) 198 mg/dL 70-110 Capillary blood glucose measurement by g lucometer (mass/volume) - 12/18/17 11:24 Capillary blood glucose measurement by glucometer (mas s/volume) 210 mg/dL 70-110 Complete urinalysis with reflex to cultu re - 01/13/18 15:00 Urine color determination YELLOW NRG Urine clarity determination VERY CLOUDY NRG Urine pH measurement by test strip 6 5-9 Specific gravity of urine by test strip 1.010 1.016-1.022 Urine protein assay by test strip, semi-quantitative 3+ NEGATIVE Urine glucose detection by automated test strip NE GATIVE NEGATIVE Erythrocytes detection in urine sediment by light micr oscopy 4+ NEGATIVE Urine ketones detection by automated test strip NE GATIVE NEGATIVE Urine nitrite detection by test strip NEGATIVE NEGATIVE Urine total bilirubin detection by test strip NEGA TIVE NEGATIVE Urine urobilinogen measurement by automated test strip (mass/volume) NORMAL NORMAL Urine leukocyte esterase detection by dipstick 3+ NEGATIVE Automated urine sediment erythrocyte cou nt by microscopy (number/high power field) [HPF] NRG Automated urine sediment leukocyte count by microscopy (number/high power field) TNTC NRG Bacteria detection in urine sediment by light microsco py FEW NRG Crystals detection in urine sediment by light microsco py NONE NRG Casts detection in urine sediment by light microscopy NONE NRG Mucus detection in urine sediment by light microscopy NEGATIVE NRG Complete urinalysis with reflex to culture YES NRG Bacterial urine culture - 01/13/18 15:00 Bacterial urine culture [id number] NRG COLONY COUNT 10,000/ML - 100,000/ML NRG FTX;REPORTABLE PARTIAL SENS REPORTED 01/15/18 16:30 NRG FREE TEXT ENTRY 2 MRSA REPORTED TO HOME HEALTH AND TO NRG FREE TEXT ENTRY 3 JERRY TERRAZAS 01/15/18 15:35 NRG Bacterial susceptibility panel - 8 15:00 Oxacillin susceptibility test by minimum inhibitory co ncentration >= NRG Gentamicin susceptibility test by minimum inhibitory c oncentration <= NRG Trimethoprim/sulfamethoxazole susceptibi lity test by minimum inhibitoryconcentration S NRG Vancomycin susceptibility test by minimum inhibitory c oncentration 1 NRG Levofloxacin susceptibility test by minimum inhibitory concentration <= NRG Rifampin susceptibility test by minimum inhibitory con centration <= NRG Tetracycline susceptibility test by minimum inhibitory concentration <= NRG Bacterial susceptibility panel - 8 15:00 Oxacillin susceptibility test by minimum inhibitory co ncentration >= NRG Gentamicin susceptibility test by minimum inhibitory c oncentration <= NRG Trimethoprim/sulfamethoxazole susceptibi lity test by minimum inhibitoryconcentration S NRG Vancomycin susceptibility test by minimum inhibitory c oncentration <= NRG Levofloxacin susceptibility test by minimum inhibitory concentration >= NRG Rifampin susceptibility test by minimum inhibitory con centration <= NRG Tetracycline susceptibility test by minimum inhibitory concentration <= NRG Ciprofloxacin susceptibility test by minimum inhibitor y concentration R NRG Complete urinalysis with reflex to cultu re - 01/27/18 12:45 Urine color determination YELLOW NRG Urine clarity determination SLIGHTLY CLOUDY NRG Urine pH measurement by test strip 7 5-9 Specific gravity of urine by test strip 1.005 1.016-1.022 Urine protein assay by test strip, semi-quantitative NEGATIVE NEGATIVE Urine glucose detection by automated test strip NE GATIVE NEGATIVE Erythrocytes detection in urine sediment by light micr oscopy 1+ NEGATIVE Urine ketones detection by automated test strip NE GATIVE NEGATIVE Urine nitrite detection by test strip POSITIVE NEGATIVE Urine total bilirubin detection by test strip NEGA TIVE NEGATIVE Urine urobilinogen measurement by automated test strip (mass/volume) NORMAL NORMAL Urine leukocyte esterase detection by dipstick 3+ NEGATIVE Automated urine sediment erythrocyte cou nt by microscopy (number/high power field) [HPF] NRG Automated urine sediment leukocyte count by microscopy (number/high power field) > [HPF] NRG Bacteria detection in urine sediment by light microsco py MODERATE NRG Squamous epithelial cells detection in u rine sediment by light microscopy 2-5 NRG Crystals detection in urine sediment by light microsco py NONE NRG Casts detection in urine sediment by light microscopy NONE NRG Mucus detection in urine sediment by light microscopy NEGATIVE NRG Complete urinalysis with reflex to culture YES NRG Bacterial urine culture - 01/27/18 12:45 Bacterial urine culture [id number] NRG COLONY COUNT >100,000/ML NRG MRSA AGAR MRSA isolated (Screening test for MRSA is positive) NRG FTX;REPORTABLE SUSCEPTIBILITY REPORTED BY [facility] AT 0 905 NRG FREE TEXT ENTRY 2 01-29-18 NRG CALL POSITIVES (F1 HELP) CALLED TO [place]/HH A T 0949, FAX FOLLOWED/KD NRG RM Sensitivity Panel - 01/27/18 12:45 Oxacillin susceptibility test by minimum inhibitory co ncentration R NRG Trimethoprim/sulfamethoxazole susceptibi lity test by minimum inhibitoryconcentration S NRG Vancomycin susceptibility test by minimum inhibitory c oncentration 1 NRG Levofloxacin susceptibility test by minimum inhibitory concentration > NRG Rifampin susceptibility test by minimum inhibitory con centration <= NRG Cefazolin susceptibility test by minimum inhibitory co ncentration > NRG Nitrofurantoin susceptibility test by mi nimum inhibitory concentration <= NRG Penicillin G susceptibility test by minimum inhibitory concentration > NRG Methicillin resistant Staphylococcus aur eus (MRSA) screening culture - 04/20/19 13:53 Methicillin resistant Staphylococcus aureus (MRSA) scr eening culture NEG NRG Capillary blood glucose measurement by g lucometer (mass/volume) - 04/26/19 06:36 Capillary blood glucose measurement by glucometer (mas s/volume) 186 mg/dL 70-110 Complete blood count (CBC) with automate d white blood cell (WBC) differential - 10/26/19 09:33 Blood leukocytes automated count (number/volume) 5.8 10*3/uL 4.3-11.0 Blood erythrocytes automated count (number/volume) 4.03 10*6/uL 4.35-5.85 Venous blood hemoglobin measurement (mass/volume) 12.2 g/dL 13.3-17.7 Blood hematocrit (volume fraction) 37 % 40-54 Automated erythrocyte mean corpuscular volume 91 [ foz_us] 80-99 Automated erythrocyte mean corpuscular h emoglobin (mass per erythrocyte) 30 pg 25-34 Automated erythrocyte mean corpuscular h emoglobin concentration measurement (mass/volume) 33 g/dL 32-36 Automated erythrocyte distribution width ratio 14. 4 % 10.0- 14.5 Automated blood platelet count (count/volume) 196 10*3/uL 130-400 Automated blood platelet mean volume measurement 10.1 [foz_us] 7.4-10.4 Automated blood neutrophils/100 leukocytes 66 % 42-75 Automated blood lymphocytes/100 leukocytes 19 % 12-44 Blood monocytes/100 leukocytes 14 % 0-12 Automated blood eosinophils/100 leukocytes 0 % 0-10 Automated blood basophils/100 leukocytes 0 % 0-10 Blood neutrophils automated count (number/volume) 3.8 10*3 1.8-7.8 Blood lymphocytes automated count (number/volume) 1.1 10*3 1.0-4.0 Blood monocytes automated count (number/volume) 0. 8 10*3 0.0-1.0 Automated eosinophil count 0.0 10*3/uL 0 .0-0.3 Automated blood basophil count (count/volume) 0.0 10*3/uL 0.0-0.1 Comprehensive metabolic panel - 10/26/19 09:33 Serum or plasma sodium measurement (moles/volume) 139 mmol/L 135-145 Serum or plasma potassium measurement (moles/volume) 4.6 mmol/L 3.6-5.0 Serum or plasma chloride measurement (moles/volume) 109 mmol/L 98-107 Carbon dioxide 18 mmol/L 21-32 Serum or plasma anion gap determination (moles/volume) 12 mmol/L 5-14 Serum or plasma urea nitrogen measurement (mass/volume ) 29 mg/dL 7-18 Serum or plasma creatinine measurement (mass/volume) 1.48 mg/dL 0.60-1.30 Serum or plasma urea nitrogen/creatinine mass ratio 20 NRG Serum or plasma creatinine measurement w ith calculation of estimated glomerular filtration rate 45 NRG Serum or plasma glucose measurement (mass/volume) 163 mg/dL 70-105 Serum or plasma calcium measurement (mass/volume) 9.4 mg/dL 8.5-10.1 Serum or plasma total bilirubin measurement (mass/volu me) 0.4 mg/dL 0.1-1.0 Serum or plasma alkaline phosphatase evan surement (enzymatic activity/volume) 69 U/L 40-136 Serum or plasma aspartate aminotransfera se measurement (enzymatic activity/volume) 23 U/L 5-34 Serum or plasma alanine aminotransferase measurement (enzymatic activity/volume) 29 U/L 0-55 Serum or plasma protein measurement (mass/volume) 7.2 g/dL 6.4-8.2 Serum or plasma albumin measurement (mass/volume) 4.0 g/dL 3.2-4.5 CALCIUM CORRECTED 9.4 mg/dL 8.5-10.1 Lipid 1996 panel - 10/26/19 09:33 Serum or plasma triglyceride measurement (mass/volume) 103 mg/dL <150 Serum or plasma cholesterol measurement (mass/volume) 141 mg/dL < 200 Serum or plasma cholesterol in HDL measurement (mass/v olume) 44 mg/dL 40-60 Cholesterol in LDL [mass/volume] in serum or plasma by direct assay 84 mg/dL 1-129 Serum or plasma cholesterol in VLDL measurement (mass/ volume) 21 mg/dL 5-40 THYROID STIMULATING HORMONE - 10/26/19 0 9:33 THYROID STIMULATING HORMONE 0.76 u[iU]/mL 0.35-4.94 Hemoglobin A1c measurement - 10/26/19 09 :33 Blood hemoglobin A1C measurement (mass/volume) 7.3 % 4.0-5.6 MEAN BLOOD GLUCOSE 163 % <=126 Complete blood count (CBC) with automate d white blood cell (WBC) differential - 10/26/19 20:25 Blood leukocytes automated count (number/volume) 6.5 10*3/uL 4.3-11.0 Blood erythrocytes automated count (number/volume) 4.21 10*6/uL 4.35-5.85 Venous blood hemoglobin measurement (mass/volume) 12.7 g/dL 13.3-17.7 Blood hematocrit (volume fraction) 38 % 40-54 Automated erythrocyte mean corpuscular volume 91 [ foz_us] 80-99 Automated erythrocyte mean corpuscular h emoglobin (mass per erythrocyte) 30 pg 25-34 Automated erythrocyte mean corpuscular h emoglobin concentration measurement (mass/volume) 33 g/dL 32-36 Automated erythrocyte distribution width ratio 14. 7 % 10.0- 14.5 Automated blood platelet count (count/volume) 211 10*3/uL 130-400 Automated blood platelet mean volume measurement 10.6 [foz_us] 7.4-10.4 Automated blood neutrophils/100 leukocytes 85 % 42-75 Automated blood lymphocytes/100 leukocytes 11 % 12-44 Blood monocytes/100 leukocytes 4 % 0-12 Automated blood eosinophils/100 leukocytes 0 % 0-10 Automated blood basophils/100 leukocytes 0 % 0-10 Blood neutrophils automated count (number/volume) 5.5 10*3 1.8-7.8 Blood lymphocytes automated count (number/volume) 0.7 10*3 1.0-4.0 Blood monocytes automated count (number/volume) 0. 3 10*3 0.0-1.0 Automated eosinophil count 0.0 10*3/uL 0 .0-0.3 Automated blood basophil count (count/volume) 0.0 10*3/uL 0.0-0.1 PT panel in platelet poor plasma by coag ulation assay - 10/26/19 20:25 Prothrombin time (PT) in platelet poor plasma by coagu lation assay 14.0 s 12.2-14.7 INR in platelet poor plasma or blood by coagulation as say 1.0 0.8-1.4 Activated partial thromboplastin time (a PTT) in platelet poor plasma bycoagulation assay - 10/26/19 20:25 Activated partial thromboplastin time (a PTT) in platelet poor plasma bycoagulation assay 26 s 24-35 Comprehensive metabolic panel - 10/26/19 20:25 Serum or plasma sodium measurement (moles/volume) 133 mmol/L 135-145 Serum or plasma potassium measurement (moles/volume) 6.0 mmol/L 3.6-5.0 Serum or plasma chloride measurement (moles/volume) 106 mmol/L 98-107 Carbon dioxide 11 mmol/L 21-32 Serum or plasma anion gap determination (moles/volume) 16 mmol/L 5-14 Serum or plasma urea nitrogen measurement (mass/volume ) 38 mg/dL 7-18 Serum or plasma creatinine measurement (mass/volume) 1.96 mg/dL 0.60-1.30 Serum or plasma urea nitrogen/creatinine mass ratio 19 NRG Serum or plasma creatinine measurement w ith calculation of estimated glomerular filtration rate 33 NRG Serum or plasma glucose measurement (mass/volume) 470 mg/dL 70-105 Serum or plasma calcium measurement (mass/volume) 9.0 mg/dL 8.5-10.1 Serum or plasma total bilirubin measurement (mass/volu me) 0.3 mg/dL 0.1-1.0 Serum or plasma alkaline phosphatase evan surement (enzymatic activity/volume) 92 U/L 40-136 Serum or plasma aspartate aminotransfera se measurement (enzymatic activity/volume) 35 U/L 5-34 Serum or plasma alanine aminotransferase measurement (enzymatic activity/volume) 30 U/L 0-55 Serum or plasma protein measurement (mass/volume) 7.7 g/dL 6.4-8.2 Serum or plasma albumin measurement (mass/volume) 4.1 g/dL 3.2-4.5 CALCIUM CORRECTED 8.9 mg/dL 8.5-10.1 Magnesium - 10/26/19 20:25 Magnesium 1.9 mg/dL 1.6-2.4 Serum or plasma creatine kinase measurem ent (enzymatic activity/volume) - 10/26/19 20:25 Serum or plasma creatine kinase measurem ent (enzymatic activity/volume) 446 U/L 30-200 Serum or plasma creatine kinase MB measu rement (enzymatic activity/volume) - 10/26/19 20:25 Serum or plasma creatine kinase MB measu rement (enzymatic activity/volume) 10.3 ng/mL <6.6 Myoglobin, serum - 10/26/19 20:25 Myoglobin, serum 862.8 ng/mL 10.0-92.0 Serum or plasma amylase measurement (enz ymatic activity/volume) - 10/26/19 20:25 Serum or plasma amylase measurement (enzymatic activit y/volume) 42 U/L 25-125 Serum or plasma troponin i.cardiac measu rement (mass/volume) - 10/26/19 20:25 Serum or plasma troponin i.cardiac measurement (mass/v olume) 0.040 ng/mL <0.028 Serum or plasma lithium measurement (mol es/volume) - 10/26/19 20:25 BNP PT 1228.8 pg/mL <100.0 Lipase - 10/26/19 20:25 Lipase 10 U/L 8-78 Capillary blood glucose measurement by g lucometer (mass/volume) - 10/26/19 20:35 Capillary blood glucose measurement by glucometer (mas s/volume) 448 mg/dL 70-110 Influenza virus A and B antigen detectio n - 10/26/19 20:35 FLU RESULT NEGATIVE FOR INFLUENZA A AND B ANTIGENS BY IA NRG Arterial blood gas measurement - 0 21:55 Blood pCO2 29 mm[Hg] 35-45 Blood pO2 92 mm[Hg] 79-93 Arterial blood bicarbonate measurement (moles/volume) 16 mmol/L 23-27 Arterial blood base excess by calculation -8.5 mmo l/L -2.5-2.5 Arterial blood oxygen saturation measurement 98 % 94-100 * Inhaled oxygen flow rate 2L NRG Arterial blood pH measurement with patient temperature correction 7.36 7.37-7.43 Arterial blood carbon dioxide, total measurement (mole s/volume) 16.9 mmol/L 21.0-31.0 Body site R RAD NRG Assessment of wrist artery patency prior to arterial p uncture YES-POS NRG Setting of ventilation mode NO NR G Measurement of body temperature 36.9 NRG Complete urinalysis with reflex to cultu re - 10/26/19 22:40 Urine color determination YELLOW NRG Urine clarity determination CLEAR NR G Urine pH measurement by test strip 5.5 5-9 Specific gravity of urine by test strip 1.020 1.016-1.022 Urine protein assay by test strip, semi-quantitative NEGATIVE NEGATIVE Urine glucose detection by automated test strip 1+ NEGATIVE Erythrocytes detection in urine sediment by light micr oscopy NEGATIVE NEGATIVE Urine ketones detection by automated test strip NE GATIVE NEGATIVE Urine nitrite detection by test strip NEGATIVE NEGATIVE Urine total bilirubin detection by test strip NEGA TIVE NEGATIVE Urine urobilinogen measurement by automated test strip (mass/volume) 0.2 mg/dL < = 1.0 Urine leukocyte esterase detection by dipstick NEG ATIVE NEGATIVE Automated urine sediment erythrocyte cou nt by microscopy (number/high power field) [HPF] NRG Automated urine sediment leukocyte count by microscopy (number/high power field) [HPF] NRG Bacteria detection in urine sediment by light microsco py TRACE NRG Crystals detection in urine sediment by light microsco py PRESENT NRG Casts detection in urine sediment by light microscopy PRESENT NRG Mucus detection in urine sediment by light microscopy NEGATIVE NRG Complete urinalysis with reflex to culture NO NRG Amorphous sediment detection in urine sediment by ligh t microscopy FEW RICHI URATES NRG Hyaline casts detection in urine sediment by light cassi roscopy 5-10 NRG Capillary blood glucose measurement by g lucometer (mass/volume) - 10/26/19 22:54 Capillary blood glucose measurement by glucometer (mas s/volume) 265 mg/dL 70-110 Methicillin resistant Staphylococcus aur eus (MRSA) screening culture - 10/26/19 23:54 Methicillin resistant Staphylococcus aureus (MRSA) scr eening culture NEG NRG Capillary blood glucose measurement by g lucometer (mass/volume) - 10/27/19 00:05 Capillary blood glucose measurement by glucometer (mas s/volume) 208 mg/dL 70-110 Whole blood basic metabolic panel - 10/09 00:25 Serum or plasma sodium measurement (moles/volume) 138 mmol/L 135-145 Serum or plasma potassium measurement (moles/volume) 4.7 mmol/L 3.6-5.0 Serum or plasma chloride measurement (moles/volume) 107 mmol/L 98-107 Carbon dioxide 17 mmol/L 21-32 Serum or plasma anion gap determination (moles/volume) 14 mmol/L 5-14 Serum or plasma urea nitrogen measurement (mass/volume ) 37 mg/dL 7-18 Serum or plasma creatinine measurement (mass/volume) 1.70 mg/dL 0.60-1.30 Serum or plasma urea nitrogen/creatinine mass ratio 22 NRG Serum or plasma creatinine measurement w ith calculation of estimated glomerular filtration rate 38 NRG Serum or plasma glucose measurement (mass/volume) 223 mg/dL 70-105 Serum or plasma calcium measurement (mass/volume) 9.3 mg/dL 8.5-10.1 Hemoglobin A1c measurement - 10/27/19 00 :25 Blood hemoglobin A1C measurement (mass/volume) 7.3 % 4.0-5.6 MEAN BLOOD GLUCOSE 163 % <=126 Capillary blood glucose measurement by g lucometer (mass/volume) - 10/27/19 01:33 Capillary blood glucose measurement by glucometer (mas s/volume) 189 mg/dL 70-110 Capillary blood glucose measurement by g lucometer (mass/volume) - 10/27/19 02:29 Capillary blood glucose measurement by glucometer (mas s/volume) 119 mg/dL 70-110 Complete blood count (CBC) with automate d white blood cell (WBC) differential - 10/27/19 03:28 Blood leukocytes automated count (number/volume) 8.4 10*3/uL 4.3-11.0 Blood erythrocytes automated count (number/volume) 3.85 10*6/uL 4.35-5.85 Venous blood hemoglobin measurement (mass/volume) 11.6 g/dL 13.3-17.7 Blood hematocrit (volume fraction) 35 % 40-54 Automated erythrocyte mean corpuscular volume 91 [ foz_us] 80-99 Automated erythrocyte mean corpuscular h emoglobin (mass per erythrocyte) 30 pg 25-34 Automated erythrocyte mean corpuscular h emoglobin concentration measurement (mass/volume) 33 g/dL 32-36 Automated erythrocyte distribution width ratio 14. 6 % 10.0- 14.5 Automated blood platelet count (count/volume) 219 10*3/uL 130-400 Automated blood platelet mean volume measurement 10.7 [foz_us] 7.4-10.4 Automated blood neutrophils/100 leukocytes 69 % 42-75 Automated blood lymphocytes/100 leukocytes 15 % 12-44 Blood monocytes/100 leukocytes 16 % 0-12 Automated blood eosinophils/100 leukocytes 0 % 0-10 Automated blood basophils/100 leukocytes 0 % 0-10 Blood neutrophils automated count (number/volume) 5.8 10*3 1.8-7.8 Blood lymphocytes automated count (number/volume) 1.3 10*3 1.0-4.0 Blood monocytes automated count (number/volume) 1. 4 10*3 0.0-1.0 Automated eosinophil count 0.0 10*3/uL 0 .0-0.3 Automated blood basophil count (count/volume) 0.0 10*3/uL 0.0-0.1 Comprehensive metabolic panel - 10/27/19 03:28 Serum or plasma sodium measurement (moles/volume) 141 mmol/L 135-145 Serum or plasma potassium measurement (moles/volume) 4.3 mmol/L 3.6-5.0 Serum or plasma chloride measurement (moles/volume) 108 mmol/L 98-107 Carbon dioxide 20 mmol/L 21-32 Serum or plasma anion gap determination (moles/volume) 13 mmol/L 5-14 Serum or plasma urea nitrogen measurement (mass/volume ) 36 mg/dL 7-18 Serum or plasma creatinine measurement (mass/volume) 1.70 mg/dL 0.60-1.30 Serum or plasma urea nitrogen/creatinine mass ratio 21 NRG Serum or plasma creatinine measurement w ith calculation of estimated glomerular filtration rate 38 NRG Serum or plasma glucose measurement (mass/volume) 108 mg/dL 70-105 Serum or plasma calcium measurement (mass/volume) 9.4 mg/dL 8.5-10.1 Serum or plasma total bilirubin measurement (mass/volu me) 0.3 mg/dL 0.1-1.0 Serum or plasma alkaline phosphatase evan surement (enzymatic activity/volume) 70 U/L 40-136 Serum or plasma aspartate aminotransfera se measurement (enzymatic activity/volume) 72 U/L 5-34 Serum or plasma alanine aminotransferase measurement (enzymatic activity/volume) 32 U/L 0-55 Serum or plasma protein measurement (mass/volume) 7.2 g/dL 6.4-8.2 Serum or plasma albumin measurement (mass/volume) 4.0 g/dL 3.2-4.5 CALCIUM CORRECTED 9.4 mg/dL 8.5-10.1 Beta-hydroxybutyric acid measurement - 0 10/27/19 03:28 Beta-hydroxybutyric acid measurement 0.13 mmol/L 0.00-0.27 Magnesium - 10/27/19 03:28 Magnesium 1.9 mg/dL 1.6-2.4 Capillary blood glucose measurement by g lucometer (mass/volume) - 10/27/19 03:30 Capillary blood glucose measurement by glucometer (mas s/volume) 120 mg/dL 70-110 Capillary blood glucose measurement by g lucometer (mass/volume) - 10/27/19 04:30 Capillary blood glucose measurement by glucometer (mas s/volume) 86 mg/dL 70-110 Capillary blood glucose measurement by g lucometer (mass/volume) - 10/27/19 05:32 Capillary blood glucose measurement by glucometer (mas s/volume) 95 mg/dL 70-110 Capillary blood glucose measurement by g lucometer (mass/volume) - 10/27/19 06:29 Capillary blood glucose measurement by glucometer (mas s/volume) 82 mg/dL 70-110 Whole blood basic metabolic panel - 10/09 08:22 Serum or plasma sodium measurement (moles/volume) 139 mmol/L 135-145 Serum or plasma potassium measurement (moles/volume) 4.5 mmol/L 3.6-5.0 Serum or plasma chloride measurement (moles/volume) 109 mmol/L 98-107 Carbon dioxide 19 mmol/L 21-32 Serum or plasma anion gap determination (moles/volume) 11 mmol/L 5-14 Serum or plasma urea nitrogen measurement (mass/volume ) 34 mg/dL 7-18 Serum or plasma creatinine measurement (mass/volume) 1.61 mg/dL 0.60-1.30 Serum or plasma urea nitrogen/creatinine mass ratio 21 NRG Serum or plasma creatinine measurement w ith calculation of estimated glomerular filtration rate 41 NRG Serum or plasma glucose measurement (mass/volume) 71 mg/dL 70-105 Serum or plasma calcium measurement (mass/volume) 9.0 mg/dL 8.5-10.1 Capillary blood glucose measurement by g lucometer (mass/volume) - 10/27/19 08:37 Capillary blood glucose measurement by glucometer (mas s/volume) 77 mg/dL 70-110 Blood lactic acid measurement (moles/vol ume) - 10/27/19 09:24 Blood lactic acid measurement (moles/volume) 1.52 mmol/L 0.50-2.00 Capillary blood glucose measurement by g lucometer (mass/volume) - 10/27/19 11:49 Capillary blood glucose measurement by glucometer (mas s/volume) 138 mg/dL 70-110 Capillary blood glucose measurement by g lucometer (mass/volume) - 10/27/19 15:53 Capillary blood glucose measurement by glucometer (mas s/volume) 142 mg/dL 70-110 Comprehensive metabolic panel - 10/27/19 16:45 Serum or plasma sodium measurement (moles/volume) 138 mmol/L 135-145 Serum or plasma potassium measurement (moles/volume) 4.4 mmol/L 3.6-5.0 Serum or plasma chloride measurement (moles/volume) 108 mmol/L 98-107 Carbon dioxide 21 mmol/L 21-32 Serum or plasma anion gap determination (moles/volume) 9 mmol/L 5-14 Serum or plasma urea nitrogen measurement (mass/volume ) 33 mg/dL 7-18 Serum or plasma creatinine measurement (mass/volume) 1.77 mg/dL 0.60-1.30 Serum or plasma urea nitrogen/creatinine mass ratio 19 NRG Serum or plasma creatinine measurement w ith calculation of estimated glomerular filtration rate 37 NRG Serum or plasma glucose measurement (mass/volume) 127 mg/dL 70-105 Serum or plasma calcium measurement (mass/volume) 8.4 mg/dL 8.5-10.1 Serum or plasma total bilirubin measurement (mass/volu me) 0.2 mg/dL 0.1-1.0 Serum or plasma alkaline phosphatase evan surement (enzymatic activity/volume) 65 U/L 40-136 Serum or plasma aspartate aminotransfera se measurement (enzymatic activity/volume) 63 U/L 5-34 Serum or plasma alanine aminotransferase measurement (enzymatic activity/volume) 30 U/L 0-55 Serum or plasma protein measurement (mass/volume) 6.1 g/dL 6.4-8.2 Serum or plasma albumin measurement (mass/volume) 3.4 g/dL 3.2-4.5 CALCIUM CORRECTED 8.9 mg/dL 8.5-10.1 Serum or plasma phosphate measurement (m ass/volume) - 10/27/19 16:45 Serum or plasma phosphate measurement (mass/volume) 3.5 mg/dL 2.3-4.7 Capillary blood glucose measurement by g lucometer (mass/volume) - 10/27/19 21:10 Capillary blood glucose measurement by glucometer (mas s/volume) 165 mg/dL 70-110 Complete blood count (CBC) with automate d white blood cell (WBC) differential - 10/28/19 02:55 Blood leukocytes automated count (number/volume) 5.6 10*3/uL 4.3-11.0 Blood erythrocytes automated count (number/volume) 3.63 10*6/uL 4.35-5.85 Venous blood hemoglobin measurement (mass/volume) 11.0 g/dL 13.3-17.7 Blood hematocrit (volume fraction) 33 % 40-54 Automated erythrocyte mean corpuscular volume 92 [ foz_us] 80-99 Automated erythrocyte mean corpuscular h emoglobin (mass per erythrocyte) 30 pg 25-34 Automated erythrocyte mean corpuscular h emoglobin concentration measurement (mass/volume) 33 g/dL 32-36 Automated erythrocyte distribution width ratio 14. 6 % 10.0- 14.5 Automated blood platelet count (count/volume) 163 10*3/uL 130-400 Automated blood platelet mean volume measurement 10.4 [foz_us] 7.4-10.4 Automated blood neutrophils/100 leukocytes 53 % 42-75 Automated blood lymphocytes/100 leukocytes 30 % 12-44 Blood monocytes/100 leukocytes 16 % 0-12 Automated blood eosinophils/100 leukocytes 2 % 0-10 Automated blood basophils/100 leukocytes 1 % 0-10 Blood neutrophils automated count (number/volume) 2.9 10*3 1.8-7.8 Blood lymphocytes automated count (number/volume) 1.7 10*3 1.0-4.0 Blood monocytes automated count (number/volume) 0. 9 10*3 0.0-1.0 Automated eosinophil count 0.1 10*3/uL 0 .0-0.3 Automated blood basophil count (count/volume) 0.0 10*3/uL 0.0-0.1 Whole blood basic metabolic panel - 10/09 09/26 02:55 Serum or plasma sodium measurement (moles/volume) 137 mmol/L 135-145 Serum or plasma potassium measurement (moles/volume) 4.9 mmol/L 3.6-5.0 Serum or plasma chloride measurement (moles/volume) 108 mmol/L 98-107 Carbon dioxide 19 mmol/L 21-32 Serum or plasma anion gap determination (moles/volume) 10 mmol/L 5-14 Serum or plasma urea nitrogen measurement (mass/volume ) 33 mg/dL 7-18 Serum or plasma creatinine measurement (mass/volume) 1.49 mg/dL 0.60-1.30 Serum or plasma urea nitrogen/creatinine mass ratio 22 NRG Serum or plasma creatinine measurement w ith calculation of estimated glomerular filtration rate 45 NRG Serum or plasma glucose measurement (mass/volume) 136 mg/dL 70-105 Serum or plasma calcium measurement (mass/volume) 8.5 mg/dL 8.5-10.1 Magnesium - 10/28/19 02:55 Magnesium 1.8 mg/dL 1.6-2.4 Beta-hydroxybutyric acid measurement - 0 10/28/19 02:55 Beta-hydroxybutyric acid measurement 0.09 mmol/L 0.00-0.27 Serum or plasma phosphate measurement (m ass/volume) - 10/28/19 02:55 Serum or plasma phosphate measurement (mass/volume) 3.3 mg/dL 2.3-4.7 Capillary blood glucose measurement by g lucometer (mass/volume) - 10/28/19 15:46 Capillary blood glucose measurement by glucometer (mas s/volume) 95 mg/dL 70-110 Capillary blood glucose measurement by g lucometer (mass/volume) - 10/28/19 20:24 Capillary blood glucose measurement by glucometer (mas s/volume) 153 mg/dL 70-110 Complete blood count (CBC) with automate d white blood cell (WBC) differential - 10/29/19 03:15 Blood leukocytes automated count (number/volume) 5.3 10*3/uL 4.3-11.0 Blood erythrocytes automated count (number/volume) 3.67 10*6/uL 4.35-5.85 Venous blood hemoglobin measurement (mass/volume) 10.9 g/dL 13.3-17.7 Blood hematocrit (volume fraction) 34 % 40-54 Automated erythrocyte mean corpuscular volume 92 [ foz_us] 80-99 Automated erythrocyte mean corpuscular h emoglobin (mass per erythrocyte) 30 pg 25-34 Automated erythrocyte mean corpuscular h emoglobin concentration measurement (mass/volume) 32 g/dL 32-36 Automated erythrocyte distribution width ratio 14. 7 % 10.0- 14.5 Automated blood platelet count (count/volume) 189 10*3/uL 130-400 Automated blood platelet mean volume measurement 10.2 [foz_us] 7.4-10.4 Automated blood neutrophils/100 leukocytes 50 % 42-75 Automated blood lymphocytes/100 leukocytes 30 % 12-44 Blood monocytes/100 leukocytes 16 % 0-12 Automated blood eosinophils/100 leukocytes 3 % 0-10 Automated blood basophils/100 leukocytes 1 % 0-10 Blood neutrophils automated count (number/volume) 2.6 10*3 1.8-7.8 Blood lymphocytes automated count (number/volume) 1.6 10*3 1.0-4.0 Blood monocytes automated count (number/volume) 0. 9 10*3 0.0-1.0 Automated eosinophil count 0.2 10*3/uL 0 .0-0.3 Automated blood basophil count (count/volume) 0.0 10*3/uL 0.0-0.1 Whole blood basic metabolic panel - 10/09 10/27 03:15 Serum or plasma sodium measurement (moles/volume) 137 mmol/L 135-145 Serum or plasma potassium measurement (moles/volume) 4.6 mmol/L 3.6-5.0 Serum or plasma chloride measurement (moles/volume) 107 mmol/L 98-107 Carbon dioxide 19 mmol/L 21-32 Serum or plasma anion gap determination (moles/volume) 11 mmol/L 5-14 Serum or plasma urea nitrogen measurement (mass/volume ) 24 mg/dL 7-18 Serum or plasma creatinine measurement (mass/volume) 1.27 mg/dL 0.60-1.30 Serum or plasma urea nitrogen/creatinine mass ratio 19 NRG Serum or plasma creatinine measurement w ith calculation of estimated glomerular filtration rate 54 NRG Serum or plasma glucose measurement (mass/volume) 135 mg/dL 70-105 Serum or plasma calcium measurement (mass/volume) 8.5 mg/dL 8.5-10.1 Serum or plasma phosphate measurement (m ass/volume) - 10/29/19 03:15 Serum or plasma phosphate measurement (mass/volume) 3.4 mg/dL 2.3-4.7 Magnesium - 10/29/19 03:15 Magnesium 1.7 mg/dL 1.6-2.4 Beta-hydroxybutyric acid measurement - 0 10/29/19 03:15 Beta-hydroxybutyric acid measurement 0.10 mmol/L 0.00-0.27 Capillary blood glucose measurement by g lucometer (mass/volume) - 10/29/19 11:42 Capillary blood glucose measurement by glucometer (mas s/volume) 112 mg/dL 70-110 Complete blood count (CBC) with automate d white blood cell (WBC) differential - 11/01/19 12:20 Blood leukocytes automated count (number/volume) 5.2 10*3/uL 4.3-11.0 Blood erythrocytes automated count (number/volume) 3.96 10*6/uL 4.35-5.85 Venous blood hemoglobin measurement (mass/volume) 11.8 g/dL 13.3-17.7 Blood hematocrit (volume fraction) 36 % 40-54 Automated erythrocyte mean corpuscular volume 91 [ foz_us] 80-99 Automated erythrocyte mean corpuscular h emoglobin (mass per erythrocyte) 30 pg 25-34 Automated erythrocyte mean corpuscular h emoglobin concentration measurement (mass/volume) 33 g/dL 32-36 Automated erythrocyte distribution width ratio 14. 4 % 10.0- 14.5 Automated blood platelet count (count/volume) 198 10*3/uL 130-400 Automated blood platelet mean volume measurement 10.4 [foz_us] 7.4-10.4 Automated blood neutrophils/100 leukocytes 60 % 42-75 Automated blood lymphocytes/100 leukocytes 23 % 12-44 Blood monocytes/100 leukocytes 16 % 0-12 Automated blood eosinophils/100 leukocytes 1 % 0-10 Automated blood basophils/100 leukocytes 0 % 0-10 Blood neutrophils automated count (number/volume) 3.1 10*3 1.8-7.8 Blood lymphocytes automated count (number/volume) 1.2 10*3 1.0-4.0 Blood monocytes automated count (number/volume) 0. 8 10*3 0.0-1.0 Automated eosinophil count 0.0 10*3/uL 0 .0-0.3 Automated blood basophil count (count/volume) 0.0 10*3/uL 0.0-0.1 Comprehensive metabolic panel - 11/01/19 12:20 Serum or plasma sodium measurement (moles/volume) 135 mmol/L 135-145 Serum or plasma potassium measurement (moles/volume) 4.1 mmol/L 3.6-5.0 Serum or plasma chloride measurement (moles/volume) 104 mmol/L 98-107 Carbon dioxide 22 mmol/L 21-32 Serum or plasma anion gap determination (moles/volume) 9 mmol/L 5-14 Serum or plasma urea nitrogen measurement (mass/volume ) 23 mg/dL 7-18 Serum or plasma creatinine measurement (mass/volume) 1.43 mg/dL 0.60-1.30 Serum or plasma urea nitrogen/creatinine mass ratio 16 NRG Serum or plasma creatinine measurement w ith calculation of estimated glomerular filtration rate 47 NRG Serum or plasma glucose measurement (mass/volume) 121 mg/dL 70-105 Serum or plasma calcium measurement (mass/volume) 8.6 mg/dL 8.5-10.1 Serum or plasma total bilirubin measurement (mass/volu me) 0.5 mg/dL 0.1-1.0 Serum or plasma alkaline phosphatase evan surement (enzymatic activity/volume) 72 U/L 40-136 Serum or plasma aspartate aminotransfera se measurement (enzymatic activity/volume) 58 U/L 5-34 Serum or plasma alanine aminotransferase measurement (enzymatic activity/volume) 60 U/L 0-55 Serum or plasma protein measurement (mass/volume) 6.8 g/dL 6.4-8.2 Serum or plasma albumin measurement (mass/volume) 3.9 g/dL 3.2-4.5 CALCIUM CORRECTED 8.7 mg/dL 8.5-10.1 Serum or plasma lithium measurement (mol es/volume) - 11/01/19 12:20 BNP PT 1025.7 pg/mL <100.0 Capillary blood glucose measurement by g lucometer (mass/volume) - 11/01/19 15:46 Capillary blood glucose measurement by glucometer (mas s/volume) 204 mg/dL 70-110 Capillary blood glucose measurement by g lucometer (mass/volume) - 11/01/19 21:06 Capillary blood glucose measurement by glucometer (mas s/volume) 172 mg/dL 70-110 Capillary blood glucose measurement by g lucometer (mass/volume) - 11/02/19 05:39 Capillary blood glucose measurement by glucometer (mas s/volume) 156 mg/dL 70-110 Capillary blood glucose measurement by g lucometer (mass/volume) - 11/02/19 09:38 Capillary blood glucose measurement by glucometer (mas s/volume) 232 mg/dL 70-110 Capillary blood glucose measurement by g lucometer (mass/volume) - 11/02/19 14:30 Capillary blood glucose measurement by glucometer (mas s/volume) 159 mg/dL 70-110 Capillary blood glucose measurement by g lucometer (mass/volume) - 11/02/19 19:24 Capillary blood glucose measurement by glucometer (mas s/volume) 272 mg/dL 70-110 Capillary blood glucose measurement by g lucometer (mass/volume) - 11/03/19 05:27 Capillary blood glucose measurement by glucometer (mas s/volume) 132 mg/dL 70-110 Automated blood complete blood count ( mogram) panel - 11/03/19 05:40 Blood leukocytes automated count (number/volume) 3.5 10*3/uL 4.3-11.0 Blood erythrocytes automated count (number/volume) 3.57 10*6/uL 4.35-5.85 Venous blood hemoglobin measurement (mass/volume) 10.7 g/dL 13.3-17.7 Blood hematocrit (volume fraction) 33 % 40-54 Automated erythrocyte mean corpuscular volume 92 [ foz_us] 80-99 Automated erythrocyte mean corpuscular h emoglobin (mass per erythrocyte) 30 pg 25-34 Automated erythrocyte mean corpuscular h emoglobin concentration measurement (mass/volume) 33 g/dL 32-36 Automated erythrocyte distribution width ratio 14. 5 % 10.0- 14.5 Automated blood platelet count (count/volume) 174 10*3/uL 130-400 Automated blood platelet mean volume measurement 11.0 [foz_us] 7.4-10.4 Serum or plasma lithium measurement (mol es/volume) - 11/03/19 05:40 BNP PT 498.1 pg/mL <100.0 Comprehensive metabolic panel - 11/03/19 05:41 Serum or plasma sodium measurement (moles/volume) 137 mmol/L 135-145 Serum or plasma potassium measurement (moles/volume) 4.1 mmol/L 3.6-5.0 Serum or plasma chloride measurement (moles/volume) 108 mmol/L 98-107 Carbon dioxide 21 mmol/L 21-32 Serum or plasma anion gap determination (moles/volume) 8 mmol/L 5-14 Serum or plasma urea nitrogen measurement (mass/volume ) 23 mg/dL 7-18 Serum or plasma creatinine measurement (mass/volume) 1.23 mg/dL 0.60-1.30 Serum or plasma urea nitrogen/creatinine mass ratio 19 NRG Serum or plasma creatinine measurement w ith calculation of estimated glomerular filtration rate 56 NRG Serum or plasma glucose measurement (mass/volume) 118 mg/dL 70-105 Serum or plasma calcium measurement (mass/volume) 7.6 mg/dL 8.5-10.1 Serum or plasma total bilirubin measurement (mass/volu me) 0.4 mg/dL 0.1-1.0 Serum or plasma alkaline phosphatase evan surement (enzymatic activity/volume) 55 U/L 40-136 Serum or plasma aspartate aminotransfera se measurement (enzymatic activity/volume) 29 U/L 5-34 Serum or plasma alanine aminotransferase measurement (enzymatic activity/volume) 34 U/L 0-55 Serum or plasma protein measurement (mass/volume) 5.7 g/dL 6.4-8.2 Serum or plasma albumin measurement (mass/volume) 3.1 g/dL 3.2-4.5 CALCIUM CORRECTED 8.3 mg/dL 8.5-10.1 Capillary blood glucose measurement by g lucometer (mass/volume) - 11/03/19 10:30 Capillary blood glucose measurement by glucometer (mas s/volume) 148 mg/dL 70-110 Capillary blood glucose measurement by g lucometer (mass/volume) - 11/03/19 14:35 Capillary blood glucose measurement by glucometer (mas s/volume) 196 mg/dL 70-110 Capillary blood glucose measurement by g lucometer (mass/volume) - 11/03/19 19:31 Capillary blood glucose measurement by glucometer (mas s/volume) 185 mg/dL 70-110 Capillary blood glucose measurement by g lucometer (mass/volume) - 11/04/19 05:35 Capillary blood glucose measurement by glucometer (mas s/volume) 152 mg/dL 70-110 Capillary blood glucose measurement by g lucometer (mass/volume) - 11/04/19 10:26 Capillary blood glucose measurement by glucometer (mas s/volume) 210 mg/dL 70-110 Encounters ACCT No. Visit Date/Time Discharge Status Pt. Type Provider Facility Loc./Unit Complaint [id number] 10/18/2019 13:18:58 10/18/2019 23:59:5 9 CLS Outpatient [id number] 11/01/2019 11:52:00 13:59:00 DIS Inpatient FRANCIAER SHERRIE COOL S [facility] 4TH INFLUENZA A [id number] 10/26/2019 21:30:00 16:00:00 DIS Inpatient SHERRIE KINNEY DO S [facility] CSD NSTEMI,CHF,DKA,HYPERKALEMIA,RENAL FAILURE [id number] 04/26/2019 06:17:00 11:45:00 DIS Outpatient MARISSA BARCENAS MD [facility] SDC SEVERE PHIMOSIS [id number] 04/20/2019 13:25:00 16:22:00 DIS Outpatient MARISSA BARCENAS MD [facility] PREOP SEVERE PHIMOSIS [id number] 01/27/2018 08:00:00 23:59:59 CLS Outpatient MICHELLE FLYNN MD [facility] HH UTI [id number] 01/13/2018 08:00:00 23:59:59 CLS Outpatient MICHELLE FLYNN MD [facility] OTHER ABNORMAL FINDING IN URINE PAINFUL MICTURTION [id number] 12/16/2017 13:00:00 018 12:45:00 DIS Outpatient CHASE LEXIE [facility] 4TH SEVERE SEPSIS,LLL PNEUM ONIA [id number] 07/21/2017 15:44:00 017 23:59:59 CLS Outpatient TOM WALSH FACC, ALI FACP CC DS [facility] LAB E11.9, R94. 31, I10, R06.02 [id number] 04/14/2016 09:03:00 016 23:59:59 CLS Outpatient TRACEY BOWEN [facility] LAB CAD, HYPERTENSI ON, ECG ABNORMAL, SOB [id number] 03/25/2016 11:59:00 016 23:59:59 CLS Outpatient TOM WALSH FACC, SAKSHI PALMP CC DS [facility] CARD CHEST DISCO MFORT,DM II,HTN,SOB,ABNORMAL ECG [id number] 02/28/2016 14:52:00 016 23:59:59 CLS Outpatient TOM WALSH FACC, ALI NÉSTORP CC DS [facility] CARD CHESTISCOMF ORT, DM, HTN [id number] 02/25/2016 10:45:00 016 23:59:59 CLS Outpatient TOM WALSH FACC, SAKSHI PALMP CC DS [facility] LAB CHEST DISCO MFORT,DM II [id number] 09/08/2014 10:37:00 015 14:35:00 DIS Emergency RAMSES PICKERING MD [facility] ER RIGHT THIGH PAIN [id number] 10/26/2019 09:40:00 Document Registration [id number] 08/09/2012 13:37:00 Document Registration
[2020-02-01] MEDS ORDERED: fentaNYL INJECTION 100 MCG/2 ML AMP IVP ONE (09:45)
[2020-02-01 09:48] LABS: BASOPHILS % (AUTO) 0 % (0-10); EOSINOPHILS % (AUTO) 0 % (0-10); HEMATOCRIT 42 % (40-54); HEMOGLOBIN 14.2 G/DL (13.3-17.7); LYMPHOCYTES # (AUTO) 0.8 X 10^3 (1.0-4.0); LYMPHOCYTES % (AUTO) 6 % (12-44); MEAN CORPUSCULAR HEMOGLOBIN 31 PG (25-34); MEAN CORPUSCULAR HGB CONC 34 G/DL (32-36); MEAN CORPUSCULAR VOLUME 91 FL (80-99); MEAN PLATELET VOLUME 11.8 FL (7.4-10.4); MONOCYTES # (AUTO) 1.3 X 10^3 (0.0-1.0); MONOCYTES % (AUTO) 10 % (0-12); NEUTROPHILS # (AUTO) 10.2 X 10^3 (1.8-7.8); NEUTROPHILS % (AUTO) 83 % (42-75); PLATELET COUNT 246 10^3/uL (130-400); RED CELL DISTRIBUTION WIDTH 14.3 % (10.0-14.5); WHITE BLOOD COUNT 12.3 10^3/uL (4.3-11.0)
--- NOTE | 2020-02-01 09:49 | NUR ---
BLOOD TO BE REDRAW DUE TO IT WAS HEMOLIZED
[2020-02-01 10:11] LABS: BAND NEUTROPHILS 3 %; BASOPHILS % (MANUAL) 0 %; EOSINOPHILS % (MANUAL) 0 %; LYMPHOCYTES % (MANUAL) 6 %; MONOCYTES % (MANUAL) 14 %; NEUTROPHILS % (MANUAL) 77 %; RBC MORPH NORMAL
[2020-02-01 10:13] LABS: POTASSIUM 4.6 MMOL/L (3.6-5.0)
[2020-02-01 10:14] LABS: CALCIUM 9.4 MG/DL (8.5-10.1)
[2020-02-01 10:18] LABS: CREATININE SERUM 1.2 MG/DL (0.60-1.30)
[2020-02-01 10:21] LABS: URIC ACID 5.4 MG/DL (2.6-7.2)
--- NOTE | 2020-02-01 10:39 | Diagnostic Imaging Report ---
EXAMINATION: Right femur at 10:22 AM. TECHNIQUE/COMPARISON: AP and lateral views of the right femur were obtained. There are no prior studies available for comparison. FINDINGS: There is no fracture, dislocation, or acute bony abnormality evident. However, there is severe degenerative disease involving the right hip joint. There is near complete obliteration of the joint space and there is sclerosis of the opposing surfaces of the acetabulum and femoral head. The knee joint is not optimally visualized but there is only moderate degenerative disease of the knee joint. The soft tissues are unremarkable. IMPRESSION: 1. There is no evidence for an acute bony abnormality. 2. There is severe degenerative disease involving the hip joint. Dictated by: Dictated on workstation # [id number]
--- NOTE | 2020-02-01 10:50 | ED General ---
General Chief Complaint: General Problems/Pain Stated Complaint: ELEVATED BLOOD SUGAR;KNEE PAIN Nursing Triage Note: TO ED PER EMS FROM HOME WITH C/O PAIN IN R KNEE THAT RADIATES UP LEG HAS CHRONIC PAIN IN THAT LEG AND ALSO CONCERN BECAUSE BLOOD SUGAR IN 200 Nursing Sepsis Screen: No Definite Risk Source of Information: Patient Exam Limitations: No Limitations History of Present Illness Date Seen by Provider: February 01, 2020 Time Seen by Provider: 09:31 Initial Comments This 84-year-old gentleman presents to the emergency room due to sudden exacerbation of right hip and proximal thigh pain. He was moving around in bed when it occurred. He is also concerned about blood sugars being in the 200s. He is on oral medications for diabetes. Allergies and Home Medications Allergies Coded Allergies: No Known Drug Allergies (Unverified , 08/09/12) Home Medications Ascorbic Acid 1,000 Mg Tablet, 1,000 MG PO HS, (Reported) Aspirin 81 Mg Tablet.dr, 81 MG PO DAILY, (Reported) Clopidogrel Bisulfate 75 Mg Tablet, 75 MG PO HS, (Reported) Glipizide 10 Mg Tablet, 10 MG PO DAILY Prescribed by: GENE ANTUNEZ on 11/04/19 1031 Hydrocodone/Acetaminophen 1 Each Tablet, 0.5-1 EACH PO Q6H PRN for PAIN- BREAKTHROUGH Prescribed by: JOSEPH FLORES on 02/01/20 1436 Levothyroxine Sodium 100 Mcg Tablet, 100 MCG PO DAILY, (Reported) Metoprolol Succinate 50 Mg Tab.er.24h, 50 MG PO HS, (Reported) Multivit-Min/FA/Lycopene/Lut 1 Each Tablet, 1 TAB PO HS, (Reported) Pravastatin Sodium 20 Mg Tablet, 20 MG PO HS, (Reported) Zinc Oxide 28 Gm Oint, 0 GM TOP NEEDED PRN for DIAPER CHANGE Prescribed by: GENE ANTUNEZ on 11/04/19 1031 [Bethanechol Chl] 25 MG TAB, 25 MG PO ACHS Prescribed by: GENE ANTUNEZ on 11/04/19 1031 Patient Home Medication List Home Medication List Reviewed: Yes Review of Systems Review of Systems Constitutional: no symptoms reported EENTM: no symptoms reported Respiratory: no symptoms reported Cardiovascular: no symptoms reported Gastrointestinal: no symptoms reported Genitourinary: no symptoms reported Musculoskeletal: see HPI Skin: no symptoms reported Psychiatric/Neurological: No Symptoms Reported Hematologic/Lymphatic: No Symptoms Reported Immunological/Allergic: no symptoms reported Past Urhndvl-Lqyfmm-Ljafjj Hx Patient Social History Alcohol Use: Denies Use Recreational Drug Use: No 2nd Hand Smoke Exposure: No Recent Foreign Travel: No Contact w/Someone Who Travel: No Recent Infectious Disease Expo: No Recent Hopitalizations: Yes Seasonal Allergies Seasonal Allergies: No Past Medical History Surgeries: Yes (RIGHT KNEE SURGERY; HERNIA REPAIR X 3;DORSAL SLIT/CYSTOSCOPY 04/26/19) Abdominal, Orthopedic Respiratory: Yes (CHRONIC DYSPNEA) Pneumonia Cardiac: Yes (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, LAFB; VENOUS INSUFFICIENCY OF LEGS) Atrial Fibrillation, Chronic Edema/Swelling, Coronary Artery Disease, Heart Attack, High Cholesterol, Hypertension Neurological: No (QUESTION MILD DEMENTIA/COGNITIVE IMPAIRMENT) Reproductive Disorders: No Genitourinary: Yes (SEVERE PHIMOSIS; RENAL INSUFFICIENCY) Gastrointestinal: No Musculoskeletal: Yes Arthritis, Chronic Back Pain Endocrine: Yes Hypothyroidsim, Diabetes, Non-Insulin dep HEENT: Yes Cataract Cancer: No Psychosocial: No Integumentary: Yes Recent Skin Changes Blood Disorders: No Adverse Reaction/Blood Tranf: No Family Medical History Diabetes STRESS TEST 03/25/[address] SANTOS--SHOWED INFEROLATERAL MYOCARDIAL INFARCTION WITH MINIMAL TING-INFARCT ISCHEMIA. INFEROLATERAL AKENESIS. EF 62%. PT HAS REFUSED CARDIAC CATH ON PREVIOUS ADMITS. Physical Exam Vital Signs Vital Signs - First Documented 02/01/20 09:08 Temp 37.2 Pulse 93 Resp 12 B/P (MAP) 200/120 (146) Pulse Ox 95 O2 Delivery Room Air Capillary Refill : Less Than 3 Seconds Height, Weight, BMI Height: 5'7.00" Weight: 174lbs. 0.0oz. 78.528863qq; 19.00 BMI Method:Estimated General Appearance: WD/WN, Mild Distress (right hip pain) HEENT: PERRL/EOMI, Normal ENT Inspection, Other (missing teeth) Neck: Normal Inspection Respiratory: Lungs Clear, Normal Breath Sounds, No Accessory Muscle Use Cardiovascular: No Edema, No Murmur, Irregularly Irregular Gastrointestinal: Non Tender, Soft Extremity: Other (right hip and proximal thigh are tender to palpation. There is pain with any range of motion of motion in the hip. Knee is nontender.) Neurologic/Psychiatric: Alert, Oriented x3, line erector II-XII Norm as Tested, Other (moves all 4 extremities) Skin: Normal Color, Warm/Dry Progress/Results/Core Measures Suspected Sepsis Recent Fever Within 48 Hours: No Infection Criteria Present: None New/Unexplained Altered Menta: No Sepsis Screen: No Definite Risk SIRS Temperature: Pulse: 93 Respiratory Rate: 12 Laboratory Tests 02/01/20 09:05: White Blood Count 12.3H Blood Pressure 200 /120 Mean: 146 Laboratory Tests 02/01/20 09:05: Platelet Count 246 02/01/20 09:55: Creatinine 1.20 Results/Orders Lab Results Laboratory Tests Test 02/01/20 09:05 02/01/20 09:55 02/01/20 11:09 Range/Units White Blood Count 12.3 H 4.3-11.0 10^3/uL Red Blood Count 4.58 4.35-5.85 10^6/uL Hemoglobin 14.2 13.3-17.7 G/DL Hematocrit 42 40-54 % Mean Corpuscular Volume 91 80-99 FL Mean Corpuscular Hemoglobin 31 25-34 PG Mean Corpuscular Hemoglobin Concent 34 32-36 G/DL Red Cell Distribution Width 14.3 10.0-14.5 % Platelet Count 246 130-400 10^3/uL Mean Platelet Volume 11.8 H 7.4-10.4 FL Neutrophils (%) (Auto) 83 H 42-75 % Lymphocytes (%) (Auto) 6 L 12-44 % Monocytes (%) (Auto) 10 0-12 % Eosinophils (%) (Auto) 0 0-10 % Basophils (%) (Auto) 0 0-10 % Neutrophils # (Auto) 10.2 H 1.8-7.8 X 10^3 Lymphocytes # (Auto) 0.8 L 1.0-4.0 X 10^3 Monocytes # (Auto) 1.3 H 0.0-1.0 X 10^3 Eosinophils # (Auto) 0.0 0.0-0.3 10^3/uL Basophils # (Auto) 0.0 0.0-0.1 10^3/uL Neutrophils % (Manual) 77 % Lymphocytes % (Manual) 6 % Monocytes % (Manual) 14 % Eosinophils % (Manual) 0 % Basophils % (Manual) 0 % Band Neutrophils 3 % Blood Morphology Comment NORMAL Sodium Level 136 135-145 MMOL/L Potassium Level 4.6 3.6-5.0 MMOL/L Chloride Level 104 98-107 MMOL/L Carbon Dioxide Level 19 L 21-32 MMOL/L Anion Gap 13 5-14 MMOL/L Blood Urea Nitrogen 23 H 7-18 MG/DL Creatinine 1.20 0.60-1.30 MG/DL Estimat Glomerular Filtration Rate 58 BUN/Creatinine Ratio 19 Glucose Level 313 H 70-105 MG/DL Uric Acid 5.4 2.6-7.2 MG/DL Calcium Level 9.4 8.5-10.1 MG/DL C-Reactive Protein High Sensitivity 2.04 H 0.00-0.50 MG/DL Urine Color YELLOW Urine Clarity CLEAR Urine pH 5.5 5-9 Urine Specific [place] 1.025 H 1.016-1.022 Urine Protein 1+ H NEGATIVE Urine Glucose (UA) 3+ H NEGATIVE Urine Ketones 1+ H NEGATIVE Urine Nitrite NEGATIVE NEGATIVE Urine Bilirubin NEGATIVE NEGATIVE Urine Urobilinogen 0.2 < = 1.0 MG/DL Urine Leukocyte Esterase NEGATIVE NEGATIVE Urine RBC (Auto) 2+ H NEGATIVE Urine RBC 2-5 H /HPF Urine WBC 0-2 /HPF Urine Crystals PRESENT H /LPF Urine Amorphous Sediment RARE RICHI URATES H /LPF Urine Bacteria TRACE /HPF Urine Casts NONE /LPF Urine Mucus SMALL H /LPF Urine Culture Indicated NO My Orders Orders - JOSEPH DICKSON MD Accucheck Stat ONCE (02/01/20 09:03) Femur, Right, 2 Views (02/01/20 09:39) Pelvis (02/01/20 09:39) Fentanyl Injection (Sublimaze Injection (02/01/20 09:45) Basic Metabolic Panel (02/01/20 09:40) Cbc With Automated Diff (02/01/20 09:40) Hs C Reactive Protein (02/01/20 09:40) Uric Acid (02/01/20 09:40) Manual Differential (02/01/20 09:05) Ua Culture If Indicated (02/01/20 10:50) Bladder Scan (02/01/20 12:02) Ketorolac Injection (Toradol Injection) (02/01/20 12:30) Medications Given in ED Current Medications Medications Dose Ordered Sig/Tripp Route Start Time Stop Time Status Last Admin Dose Admin Fentanyl Citrate 50 mcg ONCE ONCE IVP 02/01/20 09:45 02/01/20 09:46 DC 02/01/20 09:45 50 MCG Ketorolac Tromethamine 15 mg ONCE ONCE IVP 02/01/20 12:30 02/01/20 12:31 DC 02/01/20 12:31 15 MG Vital Signs/I&O 02/01/20 02/01/20 09:08 14:55 Temp 37.2 Pulse 93 78 Resp 12 16 B/P (MAP) 200/120 (146) 131/78 Pulse Ox 95 97 O2 Delivery Room Air Room Air Capillary Refill : Less Than 3 Seconds Blood Pressure Mean: 146 Progress Note : Progress Note Patient was seen and examined. X-rays of the right hip and femur were obtained. No fractures were identified but there was extensive arthritis likely causing his pain. He was treated with some fentanyl prior to x-rays. He was later treated with some Toradol. A urine specimen was obtained with a pediatric feeding tube as a catheter would not pass through his very tight meatus. Approximately 360 ml was drawn out during catheterization. Bladder scan revealed an additional 340 mL. Case was discussed with Dr Barcenas. We are going to increase his bethanechol and have him follow up for evaluation of his stricture and urinary retention. I also discussed the case with Dr. Antunez. Close follow-up with her for blood sugar management was advised. Increasing oral fluids was also recommended. A Mirapex dressing was placed on the decubitus ulcer. Patient was ultimately discharged home into the care of his daughter. Diagnostic Imaging Diagonstic Imaging: Xray Plain Films/CT/US/NM/MRI: leg Comments Right femur x-ray viewed by me and report reviewed. See report below: NAME: FARHAD PENDLETON [facility] REC#: [id number] PT STATUS: REG ER : 1935 PHYSICIAN: JOSEPH DICKSON MD ADMIT DATE: 02/01/20/ER Draft Date of Exam:02/01/20 FEMUR, RIGHT, 2 VIEWS EXAMINATION: Right femur at 10:22 AM. TECHNIQUE/COMPARISON: AP and lateral views of the right femur were obtained. There are no prior studies available for comparison. FINDINGS: There is no fracture, dislocation, or acute bony abnormality evident. However, there is severe degenerative disease involving the right hip joint. There is near complete obliteration of the joint space and there is sclerosis of the opposing surfaces of the acetabulum and femoral head. The knee joint is not optimally visualized but there is only moderate degenerative disease of the knee joint. The soft tissues are unremarkable. IMPRESSION: 1. There is no evidence for an acute bony abnormality. 2. There is severe degenerative disease involving the hip joint. Dictated on workstation # [id number] Dict: 02/01/20 1035 Trans: 02/01/20 1038 [id number] Interpreted by: VINCE ESCALONA MD Diagonstic Imaging: Xray Plain Films/CT/US/NM/MRI: pelvis Comments Pelvis x-ray viewed by me and report reviewed. See report below: NAME: FARHAD PENDLETON [facility] REC#: [id number] PT STATUS: REG ER : 1935 PHYSICIAN: JOSEPH DICKSON MD ADMIT DATE: 02/01/20/ER Signed Date of Exam:02/01/20 PELVIS INDICATION: Right hip pain AP view pelvis shows advanced degenerative changes of the left hip with complete loss of joint space and sclerosis of the opposing bony surfaces with some synovial pinning through the cortex of the femoral head and acetabulum. There are osteophytes forming at the margins of the articular surfaces. There are less pronounced degenerative changes left hip. IMPRESSION: Severe degenerative changes right hip. Moderate degenerative changes left hip. There is no fracture or dislocation. Dictated by: Dictated on workstation # [id number] Dict: 02/01/20 1038 Trans: 02/01/20 1105 [facility] [id number] Interpreted by: MARY FARFAN MD Electronically signed by: MARY FARFAN MD 02/01/20 1105 Departure Impression Primary Impression: Arthritis, hip Additional Impressions: Urinary retention Hyperglycemia Decubitus ulcer Qualified Codes: L89.159 - Pressure ulcer of sacral region, unspecified stage Disposition: 01 HOME, SELF-CARE Condition: Improved Departure-Patient Inst. Decision time for Depature: 14:19 Referrals: GENE ANTUNEZ DO (PCP/Family) Primary Care Physician MARISSA BARCENAS MD Patient Instructions: Hyperglycemia, Adult, Osteoarthritis Add. Discharge Instructions: 1. Urinary retention. Please follow-up with Dr. Barcenas at 4:00 tomorrow for evaluation of urinary retention. If you are unable to make this appointment erica beyer, please call promptly to schedule another time that works. In the meantime, increase the bethanechol to 50 mg 4 times a day. 2. Arthritis. You may use Tylenol (acetaminophen) up to 1000 mg every 6 hours as needed. For more severe pain and use hydrocodone as prescribed. 3. Hyperglycemia. Encourage a low sugar, low carbohydrate diet. Follow-up with Dr. Antunez as soon as possible for medication adjustments. Encourage plenty of water. 4. Decubitus ulcer. You may use the current dressing for the next 2-3 days. Return often to prevent prolonged pressure in that region. However Dr. Antunez examined this area and Follow-up. 5. Follow-up with Dr. Antunez as soon as possible. All discharge instructions reviewed with patient and/or family. Voiced u nderstanding. Scripts Hydrocodone/Acetaminophen (Hydrocodone-Acetamin 5-325 mg) 1 Each Tablet 0.5-1 EACH PO Q6H PRN for PAIN-BREAKTHROUGH, #20 TAB Prov: JOSEPH DICKSON MD 02/01/20 Copy Copies To 1: MARISSA BARCENAS MD Copies To 2: GENE ANTUNEZ JOSHUA T MD February 01, 2020 10:50
--- NOTE | 2020-02-01 10:58 | Diagnostic Imaging Report ---
INDICATION: Right hip pain AP view pelvis shows advanced degenerative changes of the left hip with complete loss of joint space and sclerosis of the opposing bony surfaces with some synovial pinning through the cortex of the femoral head and acetabulum. There are osteophytes forming at the margins of the articular surfaces. There are less pronounced degenerative changes left hip. IMPRESSION: Severe degenerative changes right hip. Moderate degenerative changes left hip. There is no fracture or dislocation. Dictated by: Dictated on workstation # [id number]
--- NOTE | 2020-02-01 11:14 | NUR ---
ATTEMPT TO STRAIGHT CATH MEATUS SM UNABLE TO USE CATH. 5F FEEDING TUBE USED TO OBTAIN URINE BY Андрей LUGO APRN. APX 360CC OF CLEAR URINE PULLED WITH 60CCC SYRINGE.
--- NOTE | 2020-02-01 11:15 | NUR ---
Pt noted to be incontinent of urine. Pt noted to have approx 15cm area of macerated, non blanchable tissue to bilat buttocks. Pt noted to have approx 0.5cm open pressure wound to L buttocks. Wound beds cleaned, dried, et covered with meplix foam dressing.
--- NOTE | 2020-02-01 11:24 | NUR ---
Recieved report from NOEL Tomlin to assume care of pt at this time.
[2020-02-01 11:44] LABS: BILIRUBIN,URINE NEGATIVE (NEGATIVE); CLARITY,URINE CLEAR; COLOR,URINE YELLOW; GLUCOSE, URINE (UA) 3+ (NEGATIVE); KETONES,URINE 1+ (NEGATIVE); LEUKOCYTE ESTERASE ,URINE NEGATIVE (NEGATIVE); NITRITE,URINE NEGATIVE (NEGATIVE); PH,URINE 5.5 (5-9); PROTEIN,URINE 1+ (NEGATIVE)
[2020-02-01 12:10] LABS: BACTERIA,URINE TRACE /HPF; WBC,URINE 0-2 /HPF
[2020-02-01 12:11] LABS: AMORPHOUS SEDIMENT,UR RARE AMOR URATES /LPF
[2020-02-01] MEDS ORDERED: KETOROLAC 30 MG/ML VIAL IVP ONE (12:30)
[2020-02-01] MEDS ORDERED: HYDR-83 PO (14:35)
[2020-02-01 14:55] VITALS: BP 131/78
[2020-02-02] MEDS ORDERED: GLIP10TA13 PO (09:12)
[2020-02-02] MEDS ORDERED: BETH25TA11 PO (09:12)
[2020-02-02] MEDS ORDERED: ACET-2267 PO (09:12)
== END 2020-02-01 14:55 | disposition home or self-care (01) ==
LOC: EDUNIT# 08:54 → ER 08:55
DX: M16.11 Unilateral primary osteoarthritis, right hip (principal); L89.159 Pressure ulcer of sacral region, unspecified stage; R33.9 Retention of urine, unspecified; E11.65 Type 2 diabetes mellitus with hyperglycemia; I10 Essential (primary) hypertension; E78.00 Pure hypercholesterolemia, unspecified; I25.2 Old myocardial infarction; I25.10 Atherosclerotic heart disease of native coronary artery without angina pectoris; I48.91 Unspecified atrial fibrillation; E03.9 Hypothyroidism, unspecified; M54.9 Dorsalgia, unspecified; G89.29 Other chronic pain; Z79.82 Long term (current) use of aspirin; Z79.02 Long term (current) use of antithrombotics/antiplatelets; Z79.84 Long term (current) use of oral hypoglycemic drugs
CPT/HCPCS: 36415; 51701; 72170; 73552; 80048; 81000; 84550; 85007; 85027; 86141; 96374; 96375

== ENCOUNTER → 2020-03-19 | Outpatient (CLI) | payer MEDICARE ==
[~2020-03-19] MED LIST changes: +ACET-2267 PO; +ACET325C7 PO; +ACET325T49 PO; +BETH25TA11 PO; +BETH50TA9 PO; +CIPR-225 PO; +DICL100G18 TP; +FAMO20TA3 PO; +FAMO20TA5 PO; +FENT1PAT57 TD; +HYDR-83 PO; +INSU100I29 SQ; +INSU100V5 SQ; +LIDO1ADH44 TP; +Lidocaine 4% Patch TOP; +METO50TA15 PO; +NYST15CR TP; +ONDN4T PO; +SENN-145 PO; +SENN-20 PO; +TRM50T PO; +ZINC28PA TP
--- NOTE | 2020-03-20 09:31 | Diagnostic Imaging Report ---
PROCEDURE: MRI right joint lower extremity without contrast. TECHNIQUE: Multiplanar, multisequence non contrast-enhanced MRI of the right lower extremity was accomplished. INDICATION: Right hip pain. COMPARISON: MRI of the right hip from 02/25/2020. FINDINGS: There is progressive and extensive abnormal bone marrow edema throughout the femoral head, femoral neck and intertrochanteric region. Additionally, there is abnormal bone marrow edema in the acetabulum and periacetabular region of the pelvis. This bone marrow edema signal is associated with T1 hypointense marrow replacement, and exuberant erosive changes or subchondral cyst and not substantially changed since prior exam. Extensive edema like signal is present in the periarticular soft tissues of the right hip. This edema is seen extending into the gluteal musculature, iliopsoas muscle, adductor muscles and proximal anterior thigh musculature. There is no loculated fluid collection would suggest a drainable abscess. No marrow changes within the left hip or elsewhere within the pelvis to suggest additional areas of potential infection. No stress fracture of the pelvis. Moderate degenerative arthritis of left hip. Multilevel degenerative changes are noted within the lumbar spine. IMPRESSION: 1. Progressive bone marrow edema on both sides of the right hip and extensive periarticular soft tissue edema is highly concerning for septic arthritis. Recommend arthrocentesis and orthopedic consultation for further management. If septic arthritis can be excluded, then this appearance may be due to rapidly destructive osteoarthritis of the hip, which is a diagnosis of exclusion. The possibility of septic arthritis and recommendations were called to Dr. Antunez's nurse Erika by Dr. Bishop Wilks at 9:25 AM on 03/20/2020. Dictated by: Dictated on workstation # [id number]
== END ==
LOC: RAD 15:28
PROVIDERS: ATTEND Family Medicine
DX: M16.11 Unilateral primary osteoarthritis, right hip (principal); R60.0 Localized edema
CPT/HCPCS: 73721